=== PATIENT | female | born 1955 | race Two or more races ===

== ENCOUNTER 2016-06-03 14:14 | Emergency (ER) | payer OTHER ==
[~2016-06-03] VITALS: Ht 177.8 cm; Wt 90.7 kg
[2016-06-03] MEDS ORDERED: FLEC50TA PO (14:31)
[2016-06-03] MEDS ORDERED: METO-207 PO (14:31)
[2016-06-03] MEDS ORDERED: XARE20TA PO (14:31)
[2016-06-03] MEDS ORDERED: PANT40TA2 PO (14:31)
[2016-06-03 15:07] LABS: INR 1.4
[2016-06-03 15:10] LABS: BASO # 0.1 K/mm3 (0.0-0.2); BASO % 0.7 % (0.0-1.0); EOS # 0.2 K/mm3 (0.0-0.50); LARGE UNSTAINED CELL # 0.2 K/mm3 (0.0-0.4); LARGE UNSTAINED CELL % 2.3 % (0.0-4.0); LYMPH # 2.7 K/mm3 (1.5-4.5); LYMPH % 29.4 % (24.0-44.0); MEAN CORPUSCULAR HEMOGLOBIN 30.9 pg (27.0-33.0); MEAN CORPUSCULAR HGB CONC 33.7 g/dl (32.0-36.5); MEAN CORPUSCULAR VOLUME 91.6 fl (80.0-96.0); MONO # 0.4 K/mm3 (0.0-0.8); MONO % 3.9 % (0.0-5.0); NEUTROPHILS # 5.6 K/mm3 (1.8-7.7); NEUTROPHILS % 61.7 % (36.0-66.0); PLATELET COUNT, AUTOMATED 239 k/mm3 (150-450); RED CELL DISTRIBUTION WIDTH 12.8 % (11.5-14.5); WHITE BLOOD COUNT 9.1 K/mm3 (4.0-10.0)
[2016-06-03 15:26] LABS: ANION GAP 9 MEQ/L (8-16); BLOOD UREA NITROGEN 16 MG/DL (7-18); CALCIUM LEVEL 8.3 MG/DL (8.8-10.2); CARBON DIOXIDE LEVEL 24 MEQ/L (21-32); CHLORIDE LEVEL 111 MEQ/L (98-107); CREATININE FOR GFR 0.94 MG/DL (0.55-1.02); FREE T4 1.07 NG/DL (0.76-1.46); GLOMERULAR FILTRATION RATE > 60.0 (>45); GLUCOSE, FASTING 101 MG/DL (80-110); MAGNESIUM LEVEL 2.2 MG/DL (1.8-2.4); PHOSPHORUS LEVEL 2.6 MG/DL (2.5-4.9); POTASSIUM SERUM 3.9 MEQ/L (3.5-5.1); SODIUM LEVEL 144 MEQ/L (136-145)
[2016-06-03 16:02] VITALS: BP 132/71
--- NOTE | 2016-06-04 07:43 | REP ---
PORTABLE CHEST: AP portable view of the chest is performed and compared to a prior study of 03/02/2016. There is mild cardiomegaly. There is no acute infiltrate. There is mild bibasilar fibrotic change. The mediastinal silhouette is unchanged. IMPRESSION: Mild cardiomegaly and chronic findings without evidence of acute infiltrate. Signed by Jason Blanchard MD 06/04/2016 04:09 P
--- NOTE | 2016-06-04 20:27 | ECGEPIP ---
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 RBBB PROBABLE INFERIOR MYOCARDIAL INFARCTION, OF INDETERMINATE AGE WITH POSTERIOR EXTENSION NO PRIORS Electronically Signed On 06-04-2016 20:26:48 EST by Masoud Vail
--- NOTE | 2016-06-04 20:28 | ECGEPIP ---
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 RBBB MODERATE VOLTAGE CRITERIA FOR LVH, CONSIDER NORMAL VARIANT Electronically Signed On 06-04-2016 20:27:41 EST by Masoud Vail
== END 2016-06-03 16:08 | disposition home or self-care (01) ==
LOC: M ED 15:26
DX: I48.91 Unspecified atrial fibrillation (principal); R93.1 Abnormal findings on diagnostic imaging of heart and coronary circulation; Z90.49 Acquired absence of other specified parts of digestive tract; Z79.02 Long term (current) use of antithrombotics/antiplatelets; Z79.899 Other long term (current) drug therapy; Z88.2 Allergy status to sulfonamides

== ENCOUNTER → 2016-07-17 | Outpatient (CLI) | payer OTHER ==
[~2016-07-17] MED LIST: FLEC50TA PO; METO-207 PO; OMEP40CA2 PO; PANT40TA2 PO; XARE20TA PO
--- NOTE | 2016-07-17 12:27 | REP ---
Gastric emptying nuclear scintigraphy: History: Vomiting, gastroparesis. Technique: 1.06 mCi of technetium-99m sulfur colloid was ingested in two scrambled eggs and 6 ounces of water and sequential anterior and posterior images are acquired for an 89-minute imaging observation period. Regions of interest are drawn around the stomach to plot gastric emptying. Scintigraphic findings: Expected T1/2 is 90 minutes. 25 % emptying is observed in this patient during the 89-minute imaging observation period, for a calculated T1/2 in this patient of 185 minutes. Impression: Delayed gastric emptying. Signed by Royer Walker MD 07/17/2016 12:19 P
== END ==
LOC: M RAD 08:45
PROVIDERS: ATTEND Internal Medicine Gastroenterology
DX: K30 Functional dyspepsia (principal); R11.10 Vomiting, unspecified; K31.84 Gastroparesis

== ENCOUNTER → 2016-07-31 | Outpatient (CLI) | payer OTHER ==
[~2016-07-31] VITALS: Ht 180.3 cm; Wt 90.7 kg
[~2016-07-31] MED LIST changes: +LIDOCAINE 2% INJ 100 MG/5 ML SDV (FOR ANES.) As Ordered ONE; +NS 1,000 ML IV SCH; +PROPOFOL 200 MG/20 ML VIAL As Ordered ONE
--- NOTE | 2016-07-31 09:56 | ROOR ---
Patient Name: Brenda Dior Procedure Date: 07/31/2016 9:27 AM Date of : 1955 Age: 61 Room: [facility] Gender: Female Note Status: Finalized Procedure: Upper GI endoscopy Indications: Heartburn, Gastroparesis Providers: Dami WHITMORE MD Referring MD: [facility] CARIDAD ALCarol [facility], Admin. Requesting Provider: Medicines: Monitored Anesthesia Care Complications: No immediate complications. Procedure: Pre-Anesthesia Assessment: - The heart rate, respiratory rate, oxygen saturations, blood pressure, adequacy of pulmonary ventilation, and response to care were monitored throughout the procedure. The Endoscope was introduced through the mouth, and advanced to the second part of duodenum. The upper GI endoscopy was accomplished without difficulty. The patient tolerated the procedure well. Findings: A medium-sized hiatal hernia was present. The esophagus was normal. The stomach was normal. The examined duodenum was normal. Impression: - Medium-sized hiatal hernia. - Normal esophagus. - Normal stomach. - Normal examined duodenum. (- There is no evidence of gastric outlet or duodenal obstruction.) - No specimens collected. Recommendation: - Use Prilosec (omeprazole) 40 mg PO BID. - Gastroparesis diet: - Eat smaller, more frequent meals throughout the day. - Low fat diet. - Liquid/soft foods are tolerated better than solid foods. - Low fiber/well cooked vegetables are tolerated better than high fiber/fibrous foods/raw vegetables. - Avoid medications that inhibit gastric/intestinal motility such as narcotic medications. Dami Whitmore MD Dami WHITMORE MD 07/31/2016 9:56:19 AM This report has been signed electronically. Number of Addenda: 0 Note Initiated On: 07/31/2016 9:27 AM Estimated Blood Loss: Estimated blood loss: none.
--- NOTE | 2016-07-31 10:00 | ROOR ---
Patient Name: Brenda Dior Procedure Date: 07/31/2016 9:28 AM Date of : 1955 Age: 61 Room: [facility] Gender: Female Note Status: Finalized Procedure: Colonoscopy Indications: Screening for colorectal malignant neoplasm Providers: Dami WHITMORE MD Referring MD: [facility], Admin. Requesting Provider: Medicines: Monitored Anesthesia Care Complications: No immediate complications. Procedure: Pre-Anesthesia Assessment: - The heart rate, respiratory rate, oxygen saturations, blood pressure, adequacy of pulmonary ventilation, and response to care were monitored throughout the procedure. The Colonoscope was introduced through the anus and advanced to the cecum, identified by appendiceal orifice and ileocecal valve. The colonoscopy was performed without difficulty. The patient tolerated the procedure well. The quality of the bowel preparation was fair. Findings: The perianal and digital rectal examinations were normal. Two sessile polyps were found in the ascending colon. The polyps were diminutive in size. These polyps were removed with a cold snare. Resection and retrieval were complete. There was evidence of a prior functional end-to-end colo-colonic anastomosis in the recto-sigmoid colon. This was patent and was characterized by healthy appearing mucosa. The anastomosis was traversed. The exam was otherwise without abnormality on direct and retroflexion views. Impression: - Preparation of the colon was fair. - Two diminutive polyps in the ascending colon, removed with a cold snare. Resected and retrieved. - Patent functional end-to-end colo-colonic anastomosis, characterized by healthy appearing mucosa. - Small internal hemorrhoids. - The examination was otherwise normal on direct and retroflexion views. Recommendation: - Use fiber, for example Citrucel, Fibercon, Konsyl or Metamucil. - Repeat colonoscopy in 3 years for surveillance. - (prep was fair. Would repeat colonoscopy in 3 years) Dami Whitmore MD Dami WHITMORE MD 07/31/2016 10:00:28 AM This report has been signed electronically. Number of Addenda: 0 Note Initiated On: 07/31/2016 9:28 AM Estimated Blood Loss: Estimated blood loss: none.
[2016-07-31 10:34] VITALS: BP 137/72
== END | disposition home or self-care (01) ==
LOC: M OPP 08:29
PROVIDERS: ATTEND Internal Medicine Gastroenterology
DX: Z12.11 Encounter for screening for malignant neoplasm of colon (principal); D12.2 Benign neoplasm of ascending colon; K64.8 Other hemorrhoids; Z98.0 Intestinal bypass and anastomosis status; K31.84 Gastroparesis; R12 Heartburn; K44.9 Diaphragmatic hernia without obstruction or gangrene; I48.91 Unspecified atrial fibrillation; Z85.828 Personal history of other malignant neoplasm of skin; Z87.19 Personal history of other diseases of the digestive system; Z88.2 Allergy status to sulfonamides; Z79.01 Long term (current) use of anticoagulants; Z79.899 Other long term (current) drug therapy; Z87.891 Personal history of nicotine dependence; Z80.0 Family history of malignant neoplasm of digestive organs; Z83.71 Family history of colonic polyps

== ENCOUNTER → 2016-08-31 | Outpatient (REF) | payer OTHER ==
[~2016-08-31] MED LIST changes: -LIDOCAINE 2% INJ 100 MG/5 ML SDV (FOR ANES.) As Ordered ONE; -NS 1,000 ML IV SCH; -PROPOFOL 200 MG/20 ML VIAL As Ordered ONE
== END ==
LOC: M SFHCADAM 09:36
PROVIDERS: ATTEND Family Medicine
DX: E66.09 Other obesity due to excess calories (principal)

== ENCOUNTER → 2016-09-28 | Outpatient (REF) | payer OTHER ==
[~2016-09-28] MED LIST changes: +FURO20TA2 PO; -METO-207 PO; +METO1TAB7 PO
[2016-09-28 14:06] LABS: ANION GAP 7 MEQ/L (8-16); BLOOD UREA NITROGEN 14 MG/DL (7-18); CALCIUM LEVEL 9.1 MG/DL (8.8-10.2); CARBON DIOXIDE LEVEL 26 MEQ/L (21-32); CHLORIDE LEVEL 110 MEQ/L (98-107); CREATININE FOR GFR 0.84 MG/DL (0.55-1.02); GLOMERULAR FILTRATION RATE > 60.0 (>45); GLUCOSE, FASTING 85 MG/DL (80-110); POTASSIUM SERUM 4.5 MEQ/L (3.5-5.1); SODIUM LEVEL 143 MEQ/L (136-145)
== END ==
LOC: M SFHCADAM 10:40
PROVIDERS: ATTEND Family Medicine
DX: R51 Headache (principal)

== ENCOUNTER → 2016-10-31 | Outpatient (CLI) | payer OTHER ==
[~2016-10-31] MED LIST changes: +ISOVUE-370 76% 100ML VIAL (Q9967) As Ordered ONE
--- NOTE | 2016-10-31 14:16 | REP ---
CT HEAD WITHOUT AND WITH CONTRAST: HISTORY: Headache. CONTRAST: Isovue 370, 75 mL. There is no intraparenchymal hemorrhage, mass or midline shift. There is no abnormal enhancement. The ventricular system is normal in appearance. A cavum septi pellucidi is present. There is no extracerebral collection. The visualized sinuses are clear. IMPRESSION: There is no intracranial lesion. Signed by Armand Gutierrez MD 10/31/2016 02:24 P
== END ==
LOC: M RAD 13:23
PROVIDERS: ATTEND Family Medicine
DX: R51 Headache (principal)

== ENCOUNTER → 2016-11-01 | Outpatient (REF) | payer OTHER ==
[~2016-11-01] MED LIST changes: -ISOVUE-370 76% 100ML VIAL (Q9967) As Ordered ONE
[2016-11-01 13:11] LABS: ALBUMIN/GLOBULIN RATIO 1.29 (1.00-1.93); ALKALINE PHOSPHATASE 65 U/L (45-117); ALT/SGPT 26 U/L (12-78); ANION GAP 10 MEQ/L (8-16); AST/SGOT 21 U/L (15-37); BILIRUBIN,TOTAL 0.4 MG/DL (0.2-1.0); BLOOD UREA NITROGEN 11 MG/DL (7-18); CARBON DIOXIDE LEVEL 25 MEQ/L (21-32); CHLORIDE LEVEL 107 MEQ/L (98-107); CREATININE FOR GFR 0.76 MG/DL (0.55-1.02); GLOMERULAR FILTRATION RATE > 60.0 (>45); GLUCOSE, FASTING 80 MG/DL (80-110); POTASSIUM SERUM 3.9 MEQ/L (3.5-5.1); SODIUM LEVEL 142 MEQ/L (136-145); TOTAL PROTEIN 7.1 GM/DL (6.4-8.2)
== END ==
LOC: M SFHCADAM 11:29
PROVIDERS: ATTEND Family Medicine
DX: R60.9 Edema, unspecified (principal)

== ENCOUNTER 2016-11-07 15:08 | Emergency (ER) | payer OTHER ==
[~2016-11-07] VITALS: Ht 177.8 cm; Wt 106.4 kg
[~2016-11-07 15:08] MED LIST changes: -FURO20TA2 PO
[2016-11-07 17:30] VITALS: BP 141/79
--- NOTE | 2016-11-07 17:59 | REP ---
LEFT FOOT SERIES: Four views of the left foot performed. There is a nondisplaced fracture of the first proximal phalanx which appears to extend into the interphalangeal joint. No other acute fracture or dislocation is seen. IMPRESSION: Nondisplaced fracture first proximal phalanx. Signed by Jason Blanchard MD 11/08/2016 01:29 P
[2017-01-27] MEDS ORDERED: FURO20TA2 PO (19:00)
== END 2016-11-07 17:38 | disposition home or self-care (01) ==
LOC: M ED 15:08
DX: S92.412A Displaced fracture of proximal phalanx of left great toe, initial encounter for closed fracture (principal); I48.91 Unspecified atrial fibrillation; W22.8XXA Striking against or struck by other objects, initial encounter; Y92.013 Bedroom of single-family (private) house as the place of occurrence of the external cause; Y99.9 Unspecified external cause status; Y93.9 Activity, unspecified; Z88.2 Allergy status to sulfonamides; Z79.899 Other long term (current) drug therapy

== ENCOUNTER 2017-02-27 09:09 | Emergency (ER) | payer OTHER ==
[~2017-02-27] VITALS: Ht 177.8 cm; Wt 104.5 kg
[~2017-02-27 09:09] MED LIST changes: +FURO20TA2 PO
[2017-02-27] MEDS ORDERED: LIDOCAINE 2% MDV 20 ML VIAL SC ONE (09:45)
[2017-02-27] MEDS ORDERED: ADACEL/BOOSTRIX VACCINE (DIPHTH/PERTUSS/ACELL/TETANUS)0.5ML SYR (90715) IM ONE (09:45)
[2017-02-27 10:23] VITALS: BP 140/94
== END 2017-02-27 10:25 | disposition home or self-care (01) ==
LOC: M ED 09:09
DX: S61.211A Laceration without foreign body of left index finger without damage to nail, initial encounter (principal); W26.0XXA Contact with knife, initial encounter; Y92.89 Other specified places as the place of occurrence of the external cause; Y93.89 Activity, other specified; Y99.8 Other external cause status; Z79.899 Other long term (current) drug therapy; Z79.01 Long term (current) use of anticoagulants; Z88.1 Allergy status to other antibiotic agents; Z88.2 Allergy status to sulfonamides; Z87.891 Personal history of nicotine dependence

== ENCOUNTER → 2017-08-12 | Outpatient (REF) | payer OTHER | LOC: M SFHCADAM 12:34 | DX: R35.0 Frequency of micturition (principal) ==

== ENCOUNTER 2017-11-11 12:17 | Day surgery (SDC) | payer OTHER ==
[~2017-11-11 12:17] MED LIST changes: -FLEC50TA PO; -FURO20TA2 PO; +LIDOCAINE 1% MDV 20ML VIAL SQ; -METO1TAB7 PO; +MIDAZOLAM INJ 2 MG/2 ML VIAL (J2250) As Ordered; -OMEP40CA2 PO; -PANT40TA2 PO; -XARE20TA PO; +fentaNYL 100 MCG/2 ML INJECTION (J3010) As Ordered
[2017-11-11] MEDS ORDERED: PROPOFOL 200 MG/20 ML VIAL As Ordered (12:27)
[2017-11-11] MEDS: LIDOCAINE 3.5 % 1ML OPHTH TOPICAL GEL OU (13:30)
[2017-11-11] MEDS: POVIDONE-IODINE 5% OPHTH PREP SOL 30ML As Ordered (16:27)
[2017-11-11] MEDS: ERYTHROMYCIN OPHTH OINT As Ordered (16:30)
[2017-11-11] MEDS: LIDOCAINE 2% W/EPIN INJ 20ML **PRES FREE As Ordered (16:31)
== END 2017-11-11 17:20 | disposition home or self-care (01) ==
LOC: M SDC 12:17
DX: D23.12 Other benign neoplasm of skin of left eyelid, including canthus (principal); I48.91 Unspecified atrial fibrillation; I10 Essential (primary) hypertension; K21.9 Gastro-esophageal reflux disease without esophagitis; R11.11 Vomiting without nausea; R06.83 Snoring; G47.30 Sleep apnea, unspecified; F41.9 Anxiety disorder, unspecified; E87.6 Hypokalemia; Z88.2 Allergy status to sulfonamides; Z79.899 Other long term (current) drug therapy; Z79.01 Long term (current) use of anticoagulants; Z85.828 Personal history of other malignant neoplasm of skin; Z90.710 Acquired absence of both cervix and uterus; Z85.42 Personal history of malignant neoplasm of other parts of uterus
CPT/HCPCS: 67715

== ENCOUNTER 2017-12-25 16:17 | Emergency (ER) | payer OTHER ==
[2017-12-25 18:25] LABS: ANION GAP 7 MEQ/L (8-16); BLOOD UREA NITROGEN 10 MG/DL (7-18); CALCIUM LEVEL 9.1 MG/DL (8.8-10.2); CARBON DIOXIDE LEVEL 29 MEQ/L (21-32); CHLORIDE LEVEL 107 MEQ/L (98-107); CREATININE FOR GFR 0.78 MG/DL (0.55-1.30); GLOMERULAR FILTRATION RATE > 60.0 (>45); GLUCOSE, FASTING 84 MG/DL (70-100); MAGNESIUM LEVEL 2.1 MG/DL (1.8-2.4); POTASSIUM SERUM 4.4 MEQ/L (3.5-5.1); SODIUM LEVEL 143 MEQ/L (136-145)
== END 2017-12-25 19:00 | disposition home or self-care (01) ==
LOC: M ED 16:17
DX: R00.2 Palpitations (principal); I49.3 Ventricular premature depolarization; I45.10 Unspecified right bundle-branch block; I48.91 Unspecified atrial fibrillation; I10 Essential (primary) hypertension; K21.9 Gastro-esophageal reflux disease without esophagitis; Z88.2 Allergy status to sulfonamides; Z79.899 Other long term (current) drug therapy; Z79.01 Long term (current) use of anticoagulants
CPT/HCPCS: 93005

== ENCOUNTER 2017-12-31 07:56 | Emergency (ER) | payer OTHER ==
[2017-12-31] MEDS: KETOROLAC 30 MG/ML VIAL (J1885) IV (08:38)
[2017-12-31 08:46] LABS: BASO # 0.1 10^3/uL (0.0-0.2); BASO % 0.8 % (0.0-1.0); EOS # 0.2 10^3/uL (0.0-0.50); EOS % 2.7 % (0.0-3.0); HEMATOCRIT 38.8 % (36.0-47.0); IMMATURE GRANULOCYTE % 0.2 % (0-3.0); LYMPH # 2.4 10^3/uL (1.5-4.5); LYMPH % 27.7 % (24.0-44.0); MEAN CORPUSCULAR HGB CONC 33.5 g/dl (32.0-36.5); MEAN CORPUSCULAR VOLUME 92.6 fl (80.0-96.0); MONO # 0.7 10^3/uL (0.0-0.8); NEUTROPHILS # 5.3 10^3/uL (1.8-7.7); NEUTROPHILS % 60.6 % (36.0-66.0); PLATELET COUNT, AUTOMATED 253 10^3/uL (150-450); RED BLOOD COUNT 4.19 10^6/uL (4.00-5.40); RED CELL DISTRIBUTION WIDTH 13.2 % (11.5-14.5); WHITE BLOOD COUNT 8.7 10^3/uL (4.0-10.0)
[2017-12-31 09:09] LABS: LACTIC ACID SEPSIS PROTOCOL 1.2 MMOL/L (0.4-2.0)
[2017-12-31 09:12] LABS: ALBUMIN 3.7 GM/DL (3.2-5.2); ALKALINE PHOSPHATASE 82 U/L (45-117); ALT/SGPT 18 U/L (12-78); ANION GAP 7 MEQ/L (8-16); AST/SGOT 15 U/L (7-37); BILIRUBIN,DIRECT 0.1 MG/DL (0.0-0.2); BILIRUBIN,TOTAL 0.4 MG/DL (0.2-1.0); BLOOD UREA NITROGEN 10 MG/DL (7-18); CALCIUM LEVEL 8.9 MG/DL (8.8-10.2); CARBON DIOXIDE LEVEL 28 MEQ/L (21-32); CHLORIDE LEVEL 106 MEQ/L (98-107); CREATININE FOR GFR 0.78 MG/DL (0.55-1.30); GLOMERULAR FILTRATION RATE > 60.0 (>45); GLUCOSE, FASTING 88 MG/DL (70-100); LIPASE 115 U/L (73-393); POTASSIUM SERUM 4.4 MEQ/L (3.5-5.1); SODIUM LEVEL 141 MEQ/L (136-145); TOTAL PROTEIN 7.4 GM/DL (6.4-8.2)
[2017-12-31] MEDS: GASTROGRAFIN SOLUTION 30ML PO ×2 (09:31→09:58)
[2017-12-31] MEDS ORDERED: ISOVUE-370 76% 100ML VIAL (Q9967) As Ordered (11:06)
[2017-12-31] MEDS: metroNIDAZOLE (FLAGYL) 500 MG TAB PO (12:13)
[2017-12-31] MEDS: CIPROFLOXACIN 500 MG TAB PO (12:13)
== END 2017-12-31 12:52 | disposition home or self-care (01) ==
LOC: M ED 07:56
DX: K57.32 Diverticulitis of large intestine without perforation or abscess without bleeding (principal); I48.91 Unspecified atrial fibrillation; F33.9 Major depressive disorder, recurrent, unspecified; G47.33 Obstructive sleep apnea (adult) (pediatric); K21.9 Gastro-esophageal reflux disease without esophagitis; Z98.890 Other specified postprocedural states; Z88.2 Allergy status to sulfonamides; Z88.1 Allergy status to other antibiotic agents; Z79.899 Other long term (current) drug therapy; Z90.49 Acquired absence of other specified parts of digestive tract; Z87.19 Personal history of other diseases of the digestive system
CPT/HCPCS: Q9963

== ENCOUNTER 2018-08-03 22:31 | Emergency (ER) | payer MEDICARE, MEDICAID ==
[~2018-08-03] VITALS: Ht 177.8 cm; Wt 113.6 kg
[~2018-08-03 22:31] MED LIST changes: +CIPR-249 PO; +FLAG500T PO; +FLEC50HA PO; +FURO20TA2 PO; +HYDR-3715 PO; -LIDOCAINE 1% MDV 20ML VIAL SQ; +METO1TAB7 PO; -MIDAZOLAM INJ 2 MG/2 ML VIAL (J2250) As Ordered; +OMEP40CA2 PO; +PANT40TA3 PO; +XARE20TA PO; -fentaNYL 100 MCG/2 ML INJECTION (J3010) As Ordered
[2018-08-04] MEDS ORDERED: ONDANSETRON 4MG/2ML VIAL (J2405) IV ONE
[2018-08-04] MEDS ORDERED: NS 1,000 ML IV ONE
[2018-08-04] MEDS ORDERED: MORPHINE 4 MG/ML 1ML VIAL/SYRINGE (J2270) IV ONE
[2018-08-04 00:44] LABS: BASO # 0.1 10^3/uL (0.0-0.2); BASO % 0.5 % (0.0-1.0); EOS # 0.1 10^3/uL (0.0-0.50); EOS % 0.6 % (0.0-3.0); HEMATOCRIT 41.5 % (36.0-47.0); HEMOGLOBIN 13.8 g/dl (12.0-15.5); LYMPH # 1.7 10^3/uL (1.5-4.5); MEAN CORPUSCULAR HEMOGLOBIN 31.1 pg (27.0-33.0); MEAN CORPUSCULAR HGB CONC 33.3 g/dl (32.0-36.5); MEAN CORPUSCULAR VOLUME 93.5 fl (80.0-96.0); MONO # 0.4 10^3/uL (0.0-0.8); MONO % 3.2 % (0.0-5.0); NEUTROPHILS # 10.1 10^3/uL (1.8-7.7); NEUTROPHILS % 81.3 % (36.0-66.0); PLATELET COUNT, AUTOMATED 234 10^3/uL (150-450); RED BLOOD COUNT 4.44 10^6/uL (4.00-5.40); WHITE BLOOD COUNT 12.4 10^3/uL (4.0-10.0)
[2018-08-04 01:04] VITALS: BP 159/84
[2018-08-04 01:04] LABS: ALBUMIN 3.9 GM/DL (3.2-5.2); ALT/SGPT 27 U/L (12-78); BILIRUBIN,DIRECT < 0.1 MG/DL (0.0-0.2); BILIRUBIN,TOTAL 0.3 MG/DL (0.2-1.0); BLOOD UREA NITROGEN 15 MG/DL (7-18); CALCIUM LEVEL 8.8 MG/DL (8.8-10.2); CARBON DIOXIDE LEVEL 31 MEQ/L (21-32); CHLORIDE LEVEL 106 MEQ/L (98-107); CREATININE FOR GFR 1.07 MG/DL (0.55-1.30); GLOMERULAR FILTRATION RATE 54.8 (>45); GLUCOSE, FASTING 123 MG/DL (70-100); LIPASE 122 U/L (73-393); POTASSIUM SERUM 4.2 MEQ/L (3.5-5.1); SODIUM LEVEL 141 MEQ/L (136-145); TOTAL PROTEIN 8.2 GM/DL (6.4-8.2)
[2018-08-04] MEDS ORDERED: ISOVUE-370 76% 100ML VIAL (Q9967) As Ordered ONE (01:23)
--- NOTE | 2018-08-04 02:33 | REPVR ---
EXAM: CT Abdomen and Pelvis With Contrast EXAM DATE/TIME: 08/04/2018 1:35 AM CLINICAL HISTORY: 63 years old, female; Abdominal pain; Prior surgery; Surgery date: 6+ months; Surgery type: Colon resection for diverticulitis; Additional info: Llq pain TECHNIQUE: Imaging protocol: Axial computed tomography images of the abdomen and pelvis with intravenous contrast. Coronal and sagittal reformatted images were created and reviewed. Radiation optimization: All CT scans at this facility use at least one of these dose optimization techniques: automated exposure control; mA and/or kV adjustment per patient size (includes targeted exams where dose is matched to clinical indication); or iterative reconstruction. Contrast material: ISO 370; Contrast volume: 100 ml; Contrast route: IV; COMPARISON: CT ABD/PEL W/IV ORAL CONTRAS 12/31/2017 11:25 AM FINDINGS: Lungs: Minimal bibasilar fibro-atelectatic change greatest in the lower lobes. Mediastinum: Moderate hiatal hernia. ABDOMEN: Liver: Normal. No mass. Gallbladder and bile ducts: Contracted gallbladder with multiple gallstones. Pancreas: Normal. No ductal dilation. Spleen: Normal. No splenomegaly. Adrenals: Normal. No mass. Kidneys and ureters: Normal. No hydronephrosis. Stomach and bowel: Small bowel anastomosis in the right lower quadrant. Borderline to mild distention of small bowel segments with some intervening normal small bowel which may reflect areas of enteritis or adynamic segments. Colonic diverticulosis without diverticulitis. Anastomotic ring in the rectum. Appendix: There are no changes of appendicitis. A normal appendix is not seen. PELVIS: Bladder: Unremarkable as visualized. Reproductive: Status post hysterectomy. ABDOMEN and PELVIS: Intraperitoneal space: Normal. No free air. No significant fluid collection. Bones/joints: Increased lumbar lordosis. Soft tissues: Unremarkable. Vasculature: Normal. No abdominal aortic aneurysm. Lymph nodes: Normal. No enlarged lymph nodes. IMPRESSION: 1. Minimal bibasilar fibro-atelectatic change. 2. Moderate hiatal hernia. 3. Cholelithiasis. 4. Status post hysterectomy. 5. Colonic diverticulosis without diverticulitis. 6. Borderline to mild distention of small bowel segments with some intervening normal small bowel which may reflect areas of enteritis or adynamic segments. Electronically signed by: Jasper Lyons On 08/04/2018 02:33:20 AM
[2018-08-04] MEDS ORDERED: ONDA4TAB6 PO (02:44)
== END 2018-08-04 03:02 | disposition home or self-care (01) ==
LOC: M ED 22:31
DX: K52.9 Noninfective gastroenteritis and colitis, unspecified (principal); I10 Essential (primary) hypertension; I48.91 Unspecified atrial fibrillation; G47.33 Obstructive sleep apnea (adult) (pediatric); Z88.2 Allergy status to sulfonamides; Z79.01 Long term (current) use of anticoagulants
CPT/HCPCS: 74177; 80048; 80076; 81001; 83690; 85025; 96361; 96374; 96375; 99284; J2270; J2405; Q9967

== ENCOUNTER → 2018-08-06 | Outpatient (CLI) | payer MEDICARE, MEDICAID ==
[~2018-08-06] MED LIST changes: +ONDA4TAB6 PO
--- NOTE | 2018-08-06 11:27 | REPMRS ---
Patient History The patient states she has not had a clinical breast exam in over a year. Baseline Mammogram Patient is postmenopausal, has history of ovarian cancer at age 27, has history of uterine cancer at age 27, and has history of skin cancer. Family history of prostate cancer at age 50 or over in father. Benign excisional biopsy of the left breast, 1994. Took estrogen for 6 months. 3D TOMOSYNTHESIS WAS PERFORMED. Digital Woman Screen Mammo: August 06, 2018 - Exam #: [id number] Bilateral CC and MLO view(s) were taken. Technologist: Lorenza Coronado, Technologist Prior study comparison: 2003, bilateral screening mammogram, performed at [facility]. FINDINGS: There are scattered fibroglandular densities. There is no evidence of cancer on this mammogram. Assessment: BI-RADS/ACR category 2 mammogram. Benign Findings. Recommendation Routine screening mammogram of both breasts in 1 year (for women over age 40). This mammogram was interpreted with the aid of an FDA-approved computer-aided dectection system. Electronically Signed By: Jason Blanchard MD 08/06/18 [id number]
== END ==
LOC: M WHC 07:32
PROVIDERS: ATTEND Family Medicine
DX: Z12.31 Encounter for screening mammogram for malignant neoplasm of breast (principal); Z78.0 Asymptomatic menopausal state; Z85.43 Personal history of malignant neoplasm of ovary; Z85.42 Personal history of malignant neoplasm of other parts of uterus; Z85.828 Personal history of other malignant neoplasm of skin

== ENCOUNTER → 2018-09-02 | Outpatient (CLI) | payer MEDICARE, MEDICAID ==
--- NOTE | 2018-09-03 05:53 | REP ---
Clinical: Lung screening. History smoking. Comparison: None Technique: Axial low-dose noncontrast images from the thoracic inlet to the upper abdomen using lung screening technique. Findings: The lung gann are well-aerated. A 5 mm nodule in the medial right lower lobe (image 50) is suspected. No further consolidation, significant nodule or mass lesion appreciated. No pleural effusion/reaction or pneumothorax. Tracheobronchial tree is patent. Mediastinum demonstrates mild atherosclerotic changes of the coronary arteries without cardiomegaly. Impression: Lung-RADS category III. 5 mm nodule in the right lower lobe. Recommendations include 6-month follow-up CT reevaluation. Electronically Signed by Heri Reddy MD 09/03/2018 05:45 A
== END ==
LOC: M RAD 07:46
PROVIDERS: ATTEND Family Medicine
DX: Z12.2 Encounter for screening for malignant neoplasm of respiratory organs (principal); Z87.891 Personal history of nicotine dependence; R91.1 Solitary pulmonary nodule

== ENCOUNTER → 2018-10-08 | Outpatient (CLI) | payer MEDICARE, MEDICAID ==
[~2018-10-08] MED LIST changes: +E-Z-PAQUE 96% w/w SUSP 176GM BTL As Ordered ONE
--- NOTE | 2018-10-08 20:38 | REP ---
Examination Requested: SBFT Reason For Exam: Abnormal findings on imaging. Small Bowel Follow Through The procedure was performed by YANI Ballesteros, under the direct supervision of Dr. Blanchard. The images were reviewed with Dr. Blanchard. The hospice patient care secretary film shows no organomegaly or pathological masses. The intestinal gas pattern appears normal. The barium was administered and the barium column was followed through the small bowel to the level of the terminal ileum. Small bowel transit time was approximately 20 minutes. During fluoroscopy gentle palpation shows all loops are freely mobile and pliable. There are no fixed or angulated loops. The small bowel mucosal pattern is normal in course and caliber. There is no transition to suggest a partial small-bowel obstruction. Spot filming of the terminal ileum shows it to be unremarkable. There is a small diverticulum in the region of the terminal ileum. Impression: 1. Small bowel transit time of approximately 20 minutes. 2. A small diverticulum in the region of the distal small bowel/terminal ileum. 1.5 minutes of fluoroscopy time was utilized for this procedure. Some fluoroscopic images are performed with last image hold technology. These images require no additional radiation. Reviewed by YANI Rick 10/08/2018 04:03 P Electronically Signed by Jason Blanchard MD 10/08/2018 08:28 P
== END ==
LOC: M RAD 09:26
PROVIDERS: ATTEND Internal Medicine Gastroenterology
DX: K57.30 Diverticulosis of large intestine without perforation or abscess without bleeding (principal); R93.3 Abnormal findings on diagnostic imaging of other parts of digestive tract

== ENCOUNTER 2018-12-08 09:07 | Day surgery (SDC) | payer MEDICARE, MEDICAID ==
[~2018-12-08] VITALS: Ht 177.8 cm; Wt 107.5 kg
[~2018-12-08 09:07] MED LIST changes: -E-Z-PAQUE 96% w/w SUSP 176GM BTL As Ordered ONE; +NS 1,000 ML IV ONE
[2018-12-08] MEDS ORDERED: PROPOFOL 500 MG/50 ML VIAL As Ordered ONE (10:19)
[2018-12-08] MEDS ORDERED: LIDOCAINE 2% INJ 100 MG/5 ML SDV (FOR ANES.) As Ordered ONE (10:23)
--- NOTE | 2018-12-08 11:56 | ROOR ---
Patient Name: Brenda Dior Procedure Date: 12/08/2018 11:36 AM Date of : 1955 Age: 63 Room: [facility] Gender: Female Note Status: Finalized Procedure: Upper GI endoscopy Indications: Dyspepsia, Heartburn, Eructation Providers: Dami MILLER MD Referring MD: Shreya CLAUDIO DO Requestbentley Provider: Medicines: Monitored Anesthesia Care Complications: No immediate complications. Procedure: Pre-Anesthesia Assessment: - The heart rate, respiratory rate, oxygen saturations, blood pressure, adequacy of pulmonary ventilation, and response to care were monitored throughout the procedure. The Endoscope was introduced through the mouth, and advanced to the third part of duodenum. The upper GI endoscopy was accomplished without difficulty. The patient tolerated the procedure well. Findings: A large hiatal hernia was present. The entire examined stomach was otherwise normal. (large volume--r/o gastroparesis) The examined esophagus was normal. The examined duodenum was normal. Impression: - Moderate to large hiatal hernia. - Otherwise normal stomach. - Normal esophagus. - Normal examined duodenum. - No specimens collected. Recommendation: - Continue present medications. - Gastroparesis diet: - Eat smaller, more frequent meals throughout the day. - Low fat diet. - Liquid/soft foods are tolerated better than solid foods. - Low fiber/well cooked vegetables are tolerated better than high fiber/fibrous foods/raw vegetables. - Avoid medications that inhibit gastric/intestinal motility such as narcotic medications. Dami Miller MD Dami MILLER MD 12/08/2018 11:55:28 AM Electronically signed by Dami MILLER MD Number of Addenda: 0 Note Initiated On: 12/08/2018 11:36 AM Estimated Blood Loss: Estimated blood loss: none.
--- NOTE | 2018-12-08 12:11 | ROOR ---
Patient Name: Brenda Dior Procedure Date: 12/08/2018 11:37 AM Date of : 1955 Age: 63 Room: [facility] Gender: Female Note Status: Finalized Procedure: Colonoscopy Indications: Change in bowel habits Providers: Dami MILLER MD Referring MD: Shreya CLAUDIO DO Requesting Provider: Medicines: Monitored Anesthesia Care Complications: No immediate complications. Procedure: Pre-Anesthesia Assessment: - The heart rate, respiratory rate, oxygen saturations, blood pressure, adequacy of pulmonary ventilation, and response to care were monitored throughout the procedure. The Colonoscope was introduced through the anus and advanced to the terminal ileum, with identification of the appendiceal orifice and IC valve. The colonoscopy was performed without difficulty. The patient tolerated the procedure well. The quality of the bowel preparation was good. Findings: The perianal and digital rectal examinations were normal. There was evidence of a prior end-to-side colo-rectal anastomosis in the recto-sigmoid colon. This was patent and was characterized by healthy appearing mucosa. A few small-mouthed diverticula were found in the mid descending colon. The exam was otherwise without abnormality on direct and retroflexion views. Impression: - Patent end-to-side colo-rectal anastomosis, characterized by healthy appearing mucosa. - Mild diverticulosis in the mid descending colon. - The examination was otherwise normal on direct and retroflexion views. - No specimens collected. Recommendation: - Use fiber, for example Citrucel, Fibercon, Konsyl or Metamucil. - Continue present medications. Dami Miller MD Dami MILLER MD 12/08/2018 12:10:42 PM Electronically signed by Dami MILLER MD Number of Addenda: 0 Note Initiated On: 12/08/2018 11:37 AM Estimated Blood Loss: Estimated blood loss: none.
[2018-12-08 12:25] VITALS: BP 139/104
== END 2018-12-08 12:33 | disposition home or self-care (01) ==
LOC: M OPP 09:07
PROVIDERS: ATTEND Internal Medicine Gastroenterology
DX: Z98.0 Intestinal bypass and anastomosis status (principal); K57.30 Diverticulosis of large intestine without perforation or abscess without bleeding; R19.4 Change in bowel habit; I48.91 Unspecified atrial fibrillation; Z79.82 Long term (current) use of aspirin; Z79.891 Long term (current) use of opiate analgesic; Z79.899 Other long term (current) drug therapy; Z87.891 Personal history of nicotine dependence; Z83.71 Family history of colonic polyps

== ENCOUNTER 2018-12-18 22:07 | Emergency (ER) | payer OTHER, MEDICAID ==
[~2018-12-18] VITALS: Ht 180.3 cm; Wt 104.5 kg
[~2018-12-18 22:07] MED LIST changes: -NS 1,000 ML IV ONE
[2018-12-18] MEDS ORDERED: GABA-843 PO (22:56)
[2018-12-18] MEDS ORDERED: DICY10CA13 PO (22:56)
[2018-12-18] MEDS ORDERED: MORPHINE 4 MG/ML 1ML VIAL/SYRINGE (J2270) IV ONE (23:00)
[2018-12-18] MEDS ORDERED: NS 1,000 ML IV ONE (23:00)
[2018-12-18 23:14] LABS: BASO # 0.1 10^3/uL (0.0-0.2); BASO % 0.6 % (0.0-1.0); EOS # 0.2 10^3/uL (0.0-0.5); EOS % 1.2 % (0.0-3.0); HEMATOCRIT 37.6 % (36.0-47.0); HEMOGLOBIN 12.7 g/dl (12.0-15.5); LYMPH % 15.9 % (24.0-44.0); MEAN CORPUSCULAR HEMOGLOBIN 31.8 pg (27.0-33.0); MEAN CORPUSCULAR HGB CONC 33.8 g/dl (32.0-36.5); MEAN CORPUSCULAR VOLUME 94.2 fl (80.0-96.0); MONO # 0.6 10^3/uL (0.0-0.8); MONO % 4.9 % (0.0-5.0); NEUTROPHILS # 9.9 10^3/uL (1.5-8.5); NEUTROPHILS % 77.1 % (36.0-66.0); PLATELET COUNT, AUTOMATED 233 10^3/uL (150-450); RED BLOOD COUNT 3.99 10^6/uL (4.00-5.40); WHITE BLOOD COUNT 12.8 10^3/uL (4.0-10.0)
[2018-12-18 23:31] LABS: ALBUMIN 3.7 GM/DL (3.2-5.2); ALT/SGPT 20 U/L (12-78); BILIRUBIN,DIRECT 0.1 MG/DL (0.0-0.2); BILIRUBIN,TOTAL 0.3 MG/DL (0.2-1.0); BLOOD UREA NITROGEN 14 MG/DL (7-18); CALCIUM LEVEL 8.9 MG/DL (8.8-10.2); CARBON DIOXIDE LEVEL 27 MEQ/L (21-32); CHLORIDE LEVEL 105 MEQ/L (98-107); GLOMERULAR FILTRATION RATE > 60.0 (>45); GLUCOSE, FASTING 103 MG/DL (70-100); LIPASE 131 U/L (73-393); POTASSIUM SERUM 4.1 MEQ/L (3.5-5.1); SODIUM LEVEL 140 MEQ/L (136-145); TOTAL PROTEIN 7.2 GM/DL (6.4-8.2)
[2018-12-18] MEDS ORDERED: ISOVUE-370 76% 100ML VIAL (Q9967) As Ordered ONE (23:42)
--- NOTE | 2018-12-19 00:52 | REPVR ---
PROCEDURE INFORMATION: Exam: CT Abdomen and Pelvis With Contrast Exam date and time: 12/18/2018 11:37 PM Clinical history: 63 years old, female; Abdominal pain; Localized; Left; Additional info: L pain TECHNIQUE: Imaging protocol: Computed tomography of the abdomen and pelvis with intravenous contrast. Radiation optimization: All CT scans at this facility use at least one of these dose optimization techniques: automated exposure control; mA and/or kV adjustment per patient size (includes targeted exams where dose is matched to clinical indication); or iterative reconstruction. Contrast material: ISO; Contrast volume: 100 ml; Contrast route: AC; COMPARISON: CT ABD/PEL W/IV CONTRAST ONLY 08/04/2018 1:16 AM FINDINGS: Lungs: Mild bibasilar fibro-atelectatic change. Mediastinum: Mild hiatal hernia. Liver: The liver attenuation is 77 Hounsfield units and the spleen is 107 Hounsfield units. Gallbladder and bile ducts: There several gallstones in the gallbladder. Pancreas: Normal. No ductal dilation. Spleen: Normal. No splenomegaly. Adrenals: Normal. No mass. Kidneys and ureters: Normal. No hydronephrosis. Stomach and bowel: There is colonic diverticulosis without evidence of diverticulitis. Rectal anastomotic ring and small bowel anastomosis in the right pelvis with localized distention which is likely baseline physiology. Borderline distention of proximal small bowel which is discordant to the collapsed distal ileum which may reflect a low-grade obstruction although no point of transition is seen. Appendix: There are no changes of appendicitis. A normal appendix is not seen. Intraperitoneal space: Unremarkable. No free air. No significant fluid collection. Vasculature: Unremarkable. No abdominal aortic aneurysm. Lymph nodes: Unremarkable. No enlarged lymph nodes. Bladder: Unremarkable as visualized. Reproductive: Status post hysterectomy. Bones/joints: Lower lumbar facet arthropathy with increased lumbosacral lordosis. Soft tissues: Right lower quadrant fat filled spigelian hernia. Other findings: The appearance is similar to the prior study. IMPRESSION: 1. There has been little change from 08/04/2018. No acute interval process is identified. 2. Mild bibasilar fibro-atelectatic change. 3. Mild hiatal hernia. 4. Cholelithiasis. 5. Right lower quadrant fat filled spigelian hernia. 6. Colonic diverticulosis without diverticulitis. 7. Rectal anastomosis and right pelvic small bowel anastomosis which is focally distended and is likely baseline physiology and unchanged from the prior study. 8. Borderline proximal small bowel distention which may reflect a low-grade obstruction with no point of transition seen and is similar to the prior study. 9. Status post hysterectomy. Electronically signed by: Jasper Lyons On 12/19/2018 00:52:22 AM
[2018-12-19] MEDS ORDERED: ZOFR4TAB16 PO (01:47)
[2018-12-19] MEDS ORDERED: NORCO 5/325MG TABLET (BULK FOR ED) PO ONE (02:00)
[2018-12-19 02:08] VITALS: BP 149/76
--- NOTE | 2018-12-19 06:28 | ECGEPIP ---
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
--- NOTE | 2018-12-19 12:51 | ED PDOC ---
Post-Departure Follow-Up dr steele and dr johnson faxed formal report of ct abd/p for fu Mikey Piña MD Dec 19, 2018 12:51
== END 2018-12-19 02:09 | disposition home or self-care (01) ==
LOC: M ED 22:07
DX: K80.20 Calculus of gallbladder without cholecystitis without obstruction (principal); K21.9 Gastro-esophageal reflux disease without esophagitis; K43.2 Incisional hernia without obstruction or gangrene; K44.9 Diaphragmatic hernia without obstruction or gangrene; K57.30 Diverticulosis of large intestine without perforation or abscess without bleeding; I10 Essential (primary) hypertension; I45.10 Unspecified right bundle-branch block; I48.91 Unspecified atrial fibrillation; R94.31 Abnormal electrocardiogram [ECG] [EKG]; Z79.899 Other long term (current) drug therapy; Z88.2 Allergy status to sulfonamides; Z90.710 Acquired absence of both cervix and uterus
CPT/HCPCS: 74177; 80048; 80076; 81001; 83690; 85025; 93005; 96361; 96374; 99284; J2270; Q9967

== ENCOUNTER → 2019-02-05 | Outpatient (REF) | payer MEDICARE, OTHER ==
[~2019-02-05] MED LIST changes: +APAP325T4 PO; +DICY10CA13 PO; +FLUTISP; +GABA-843 PO; +NITR100C2; -OMEP40CA2 PO; +OMEP40CA97 PO; +ZOFR4TAB16 PO
[2019-02-05 12:54] LABS: BASO # 0.1 10^3/uL (0.0-0.2); BASO % 0.9 % (0.0-1.0); EOS # 0.2 10^3/uL (0.0-0.5); EOS % 2.4 % (0.0-3.0); HEMATOCRIT 39.9 % (36.0-47.0); HEMOGLOBIN 13.1 g/dl (12.0-15.5); LYMPH # 2.8 10^3/uL (1.5-5.0); LYMPH % 32.8 % (24.0-44.0); MEAN CORPUSCULAR HEMOGLOBIN 31.2 pg (27.0-33.0); MEAN CORPUSCULAR HGB CONC 32.8 g/dl (32.0-36.5); MONO # 0.6 10^3/uL (0.0-0.8); MONO % 6.7 % (0.0-5.0); NEUTROPHILS # 4.9 10^3/uL (1.5-8.5); PLATELET COUNT, AUTOMATED 281 10^3/uL (150-450); WHITE BLOOD COUNT 8.6 10^3/uL (4.0-10.0)
[2019-02-05 13:09] LABS: ALBUMIN 3.9 GM/DL (3.2-5.2); ALT/SGPT 24 U/L (12-78); BILIRUBIN,TOTAL 0.4 MG/DL (0.2-1.0); BLOOD UREA NITROGEN 9 MG/DL (7-18); CALCIUM LEVEL 9.4 MG/DL (8.8-10.2); CARBON DIOXIDE LEVEL 28 MEQ/L (21-32); CHLORIDE LEVEL 108 MEQ/L (98-107); CHOLESTEROL LEVEL 193 MG/DL (<200); CREATININE FOR GFR 0.88 MG/DL (0.55-1.30); GLOMERULAR FILTRATION RATE > 60.0 (>45); GLUCOSE, FASTING 77 MG/DL (70-100); HDL CHOLESTEROL 48 MG/DL (>40); LDL CHOLESTEROL 105 MG/DL (<100); NON-HDL-C 145 MG/DL; POTASSIUM SERUM 4.4 MEQ/L (3.5-5.1); SODIUM LEVEL 140 MEQ/L (136-145); TOTAL PROTEIN 7.8 GM/DL (6.4-8.2); TRIGLYCERIDES LEVEL 199 MG/DL (<150)
== END ==
LOC: M SFHCADAM 09:14
PROVIDERS: ATTEND Family Medicine
DX: G44.52 New daily persistent headache (NDPH) (principal); Z79.899 Other long term (current) drug therapy; Z23 Encounter for immunization
CPT/HCPCS: 80053; 80061; 84443; 85025; 90670; 90682; G0008; G0009; G0463

== ENCOUNTER → 2019-02-11 | Outpatient (CLI) | payer MEDICARE, MEDICAID ==
[~2019-02-11] MED LIST changes: -FLUTISP; +ISOVUE-370 76% 100ML VIAL (Q9967) As Ordered ONE; -NITR100C2
--- NOTE | 2019-02-11 14:17 | REP ---
CT brain: 02/11/2019. Indication: Headache. Comparison: 10/31/2016. Technique: Axial CT images of the brain were obtained from skull base to vertex with and without iodinated contrast. 75 ml of Isovue 370 were administered. Findings: There is no evidence of acute intracranial hemorrhage, acute cortical infarction, mass effect, hydrocephalus or significant fluid within the visualized paranasal sinuses/mastoid air cells. There are no areas of pathologic contrast enhancement. Impression: No acute intracranial process or pathologic contrast enhancement. Electronically Signed by Dario Cao DO 02/11/2019 02:08 P
== END ==
LOC: M RAD 13:07
PROVIDERS: ATTEND Family Medicine
DX: G44.52 New daily persistent headache (NDPH) (principal)
CPT/HCPCS: 70470; Q9967

== ENCOUNTER → 2019-02-18 | Outpatient (REF) | payer MEDICARE, MEDICAID ==
[~2019-02-18] MED LIST changes: +FLUTISP; -ISOVUE-370 76% 100ML VIAL (Q9967) As Ordered ONE; +NITR100C2
[2019-02-18 18:43] LABS: APPEARANCE, URINE CLEAR (CLEAR); BACTERIA, URINE AUTO NEGATIVE (NEGATIVE); BILIRUBIN, URINE AUTO NEGATIVE (NEGATIVE); BLOOD, URINE BLOOD NEGATIVE (NEGATIVE); COLOR, URINE YELLOW (YELLOW); GLUCOSE, URINE (UA) AUTO NEGATIVE (NEGATIVE); KETONE, URINE AUTO NEGATIVE (NEGATIVE); LEUKOCYTE ESTERASE, URINE AUTO TRACE (NEGATIVE); MUCUS, URINE SMALL (NEGATIVE); NITRITE, URINE AUTO NEGATIVE (NEGATIVE); PROTEIN, URINE AUTO NEGATIVE (NEGATIVE); RBC, URINE AUTO 1 /HPF (0-3); SQUAMOUS EPITHELIAL CELL UR AU 3 /HPF (0-6); WBC, URINE AUTO 2 /HPF (0-3)
== END ==
LOC: M SFHCADAM 16:20
PROVIDERS: ATTEND Family Medicine
DX: R30.0 Dysuria (principal)
CPT/HCPCS: 81001; 81002; 87086; G0463

== ENCOUNTER 2019-02-20 07:34 | Day surgery (SDC) | payer MEDICARE, MEDICAID ==
[~2019-02-20] VITALS: Ht 177.8 cm; Wt 109.8 kg
[~2019-02-20 07:34] MED LIST changes: -FLUTISP; -NITR100C2
[2019-02-20] MEDS ORDERED: FLUTISP (08:34)
[2019-02-20] MEDS ORDERED: NITR100C2 (08:34)
[2019-02-20] MEDS ORDERED: LR 1,000 ML IV ONE (09:00)
[2019-02-20] MEDS ORDERED: BUPIVACAINE HCL 0.25% 30 ML VIAL As Ordered ONE (11:33)
[2019-02-20] MEDS ORDERED: ROCURONIUM BROMIDE 50 MG/5 ML VIAL As Ordered ONE ×2 (12:17→13:13)
[2019-02-20] MEDS ORDERED: PROPOFOL 200 MG/20 ML VIAL As Ordered ONE (12:17)
[2019-02-20] MEDS ORDERED: LIDOCAINE 2% INJ 100 MG/5 ML SDV (FOR ANES.) As Ordered ONE (12:17)
[2019-02-20] MEDS ORDERED: fentaNYL 100 MCG/2 ML INJECTION (J3010) As Ordered ONE (12:17)
[2019-02-20] MEDS ORDERED: SUGAMMADEX SODIUM 500 MG/5 ML VIAL (BRIDION) As Ordered ONE (12:17)
[2019-02-20] MEDS ORDERED: MIDAZOLAM INJ 2 MG/2 ML VIAL (J2250) As Ordered ONE (12:17)
[2019-02-20] MEDS ORDERED: dexameTHASONE 4 MG/ML 1ML VIAL (J1100) As Ordered ONE (12:17)
[2019-02-20] MEDS ORDERED: ePHEDrine SULFATE 25 MG/5 ML(5MG/ML) SYRINGE As Ordered ONE (12:20)
[2019-02-20] MEDS ORDERED: ACETAMINOPHEN 1000MG 100ML IV BTL (OFIRMEV) (J0131 PER 10MG) As Ordered ONE (12:40)
[2019-02-20] MEDS ORDERED: KETOROLAC 60 MG/2 ML VIAL (J1885) As Ordered ONE (13:16)
[2019-02-20] MEDS ORDERED: ONDANSETRON 4MG/2ML VIAL (J2405) As Ordered ONE ×2 (13:16→14:11)
[2019-02-20] MEDS ORDERED: HYDROmorphone HCL 2 MG/ML 1ML VIAL (J1170) As Ordered ONE (13:29)
[2019-02-20] MEDS ORDERED: ONDANSETRON 4MG/2ML VIAL (J2405) IV PRN (14:15)
[2019-02-20] MEDS ORDERED: fentaNYL 100 MCG/2 ML INJECTION (J3010) IV PRN (14:15)
[2019-02-20] MEDS ORDERED: oxyCODONE 5MG TAB PO PRN (14:15)
[2019-02-20] MEDS ORDERED: LR 1,000 ML IV SCH (14:15)
[2019-02-20] MEDS ORDERED: NORCO, ANEXSIA 5/325MG TABLET (HYDROcodone/ACETAMINOPHEN) PO PRN (15:15)
[2019-02-20] MEDS ORDERED: ACETAMINOPHEN TAB 650MG DOSE (2X325MG) PO PRN (15:15)
[2019-02-20 15:20] VITALS: BP 130/70
--- NOTE | 2019-02-23 22:17 | RO ---
DATE OF PROCEDURE: 02/20/2019 PREOPERATIVE DIAGNOSIS: Symptomatic gallstones. POSTOPERATIVE DIAGNOSIS: Symptomatic gallstones. PROCEDURE PERFORMED: Laparoscopic cholecystectomy. SURGEON: Dr. 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 INDICATIONS FOR PROCEDURE: Patient is a 63-year-old woman with a history of upper abdominal pain consistent with biliary colic. She had been seen in the emergency department with both visits and CT scan revealed cholelithiasis. She is now for a laparoscopic cholecystectomy. DESCRIPTION OF PROCEDURE: The patient was brought to the operating room and placed on the table in a supine position. She was placed under general endotracheal anesthesia. The patient's abdomen was prepped and draped in a sterile fashion. The patient was noted to have a midline incision beginning about the level of the umbilicus and extending inferiorly. She also was noted to have an incarcerated hernia bulge in the right lateral abdomen just at slightly below the level of the umbilicus. This was of the site of a previous diverting ileostomy necessitated by colon surgery. 0.25% Marcaine was infiltrated at the trocar sites as needed. Initial entry was in the right upper quadrant. A small incision was made and the Veress needle was inserted. After a positive hanging drop test, the abdomen was insufflated with carbon dioxide gas. A 5 mm port was placed over the 5 mm 30-degree scope, and this was advanced through the abdominal wall without difficulty. Initial examination showed normal appearing liver. The gallbladder was initially obscured by omentum and small bowel. There were no significant adhesions in the upper abdomen from the level of the umbilicus superiorly. The patient's right-sided hernia was noted containing some omentum, and this was left undisturbed. There were some additional adhesions along her lower midline scar. The patient was tilted slightly to a reverse Trendelenburg position. A supraumbilical midline incision was made and deepened to the fascia which was incised slightly in the midline and an 11 mm port was placed at this position and a camera was shifted to the midline. A second 5 mm port was placed in the lateral right upper quadrant and a third 5 mm port was placed in the left upper quadrant. The patient was tilted further to a reverse Trendelenburg position and rolled to the left. The omentum was pulled inferiorly and the markedly distended gallbladder was identified. I attempted to aspirate this, but fluid would not aspirate through the needle and when this was removed and inspected for possible occlusion, some very thick bile was extruded from the tip of the aspirating needle. The gallbladder was grasped and elevated. I began dissection near the gallbladder neck. The peritoneum was opened on both sides of the gallbladder neck. With dissection, gallbladder neck was freed and the cholecystic artery was identified. This was doubly clipped with hemoclips and divided. With further dissection, the cystic duct was clearly identified, and this was also doubly clipped and divided. A second branch of the artery was then identified, and this was doubly clipped and divided as well. The gallbladder was then dissected free from the gallbladder bed using cautery dissection. The plane was well preserved, though the gallbladder wall appeared somewhat thickened. The gallbladder was not perforated in the course of dissection. The gallbladder was placed in an Endopouch. The right upper quadrant was then irrigated and inspected. There was no evidence of bleeding or bile leak. The patient was returned to a flat position. The trocars were removed after the abdomen had been deflated. The gallbladder was recovered through the supraumbilical site, but it was necessary to extend the fascial incision somewhat to allow the stones to pass through the abdominal wall. Palpation revealed five or six large stones, up to perhaps 1-1/2 to 2 cm with some thickened bile as well. The gallbladder was sent for permanent pathology. The fascia at the supraumbilical site was approximated with interrupted simple sutures of #2-0 Vicryl. The skin incisions were all closed with buried #4-0 Vicryl and Steri-Strips. The patient tolerated the procedure well without apparent complication. She was awakened in the operating room, extubated and moved to the recovery room in stable condition.
== END 2019-02-20 15:31 | disposition home or self-care (01) ==
LOC: M SDC 07:34
PROVIDERS: ATTEND Surgery
DX: K80.20 Calculus of gallbladder without cholecystitis without obstruction (principal); I10 Essential (primary) hypertension; I48.91 Unspecified atrial fibrillation; K21.9 Gastro-esophageal reflux disease without esophagitis; G47.30 Sleep apnea, unspecified; Z88.2 Allergy status to sulfonamides; Z79.01 Long term (current) use of anticoagulants; Z79.899 Other long term (current) drug therapy; Z85.41 Personal history of malignant neoplasm of cervix uteri
CPT/HCPCS: 47562; 88304; J0131; J1100; J1170; J1885; J2250; J2405; J3010

== ENCOUNTER → 2019-06-09 | Outpatient (REF) | payer MEDICARE, MEDICAID ==
[~2019-06-09] MED LIST changes: +FLUTISP; +NITR100C2
[2019-06-09 13:47] LABS: BASO # 0.1 10^3/uL (0.0-0.2); EOS # 0.2 10^3/uL (0.0-0.5); HEMATOCRIT 40.5 % (36.0-47.0); HEMOGLOBIN 13.2 g/dl (12.0-15.5); LYMPH # 2.8 10^3/uL (1.5-5.0); LYMPH % 29.4 % (24.0-44.0); MEAN CORPUSCULAR HEMOGLOBIN 31.1 pg (27.0-33.0); MEAN CORPUSCULAR HGB CONC 32.6 g/dl (32.0-36.5); MEAN CORPUSCULAR VOLUME 95.3 fl (80.0-96.0); MONO # 0.6 10^3/uL (0.0-0.8); MONO % 6.3 % (0.0-5.0); NEUTROPHILS # 5.9 10^3/uL (1.5-8.5); PLATELET COUNT, AUTOMATED 283 10^3/uL (150-450); RED BLOOD COUNT 4.25 10^6/uL (4.00-5.40); WHITE BLOOD COUNT 9.6 10^3/uL (4.0-10.0)
[2019-06-09 14:24] LABS: ALBUMIN 3.8 GM/DL (3.2-5.2); ALT/SGPT 26 U/L (12-78); BILIRUBIN,TOTAL 0.2 MG/DL (0.2-1.0); BLOOD UREA NITROGEN 11 MG/DL (7-18); CALCIUM LEVEL 8.7 MG/DL (8.8-10.2); CARBON DIOXIDE LEVEL 29 MEQ/L (21-32); CHLORIDE LEVEL 106 MEQ/L (98-107); CREATININE FOR GFR 0.91 MG/DL (0.55-1.30); GLOMERULAR FILTRATION RATE > 60.0 (>45); GLUCOSE, FASTING 104 MG/DL (70-100); POTASSIUM SERUM 4.3 MEQ/L (3.5-5.1); SODIUM LEVEL 140 MEQ/L (136-145); TOTAL PROTEIN 7.6 GM/DL (6.4-8.2)
== END ==
LOC: M SFHCADAM 11:02
PROVIDERS: ATTEND Family Medicine
DX: R19.7 Diarrhea, unspecified (principal); Z90.49 Acquired absence of other specified parts of digestive tract; R91.1 Solitary pulmonary nodule

== ENCOUNTER 2019-06-18 09:50 | Emergency (ER) | payer MEDICARE, MEDICAID ==
[~2019-06-18] VITALS: Ht 177.8 cm; Wt 111.6 kg
[~2019-06-18 09:50] MED LIST changes: -ISOVUE-370 76% 100ML VIAL (Q9967) As Ordered ONE; -PROV108A INH
[2019-06-18 11:09] LABS: BASO # 0.1 10^3/uL (0.0-0.2); BASO % 0.5 % (0.0-1.0); EOS # 0.3 10^3/uL (0.0-0.5); EOS % 2.5 % (0.0-3.0); HEMOGLOBIN 13.1 g/dl (12.0-15.5); LYMPH # 1.7 10^3/uL (1.5-5.0); LYMPH % 13.2 % (24.0-44.0); MEAN CORPUSCULAR HGB CONC 32.8 g/dl (32.0-36.5); MEAN CORPUSCULAR VOLUME 94.6 fl (80.0-96.0); MONO # 0.8 10^3/uL (0.0-0.8); MONO % 6.3 % (0.0-5.0); NEUTROPHILS # 9.9 10^3/uL (1.5-8.5); NEUTROPHILS % 77.1 % (36.0-66.0); PLATELET COUNT, AUTOMATED 239 10^3/uL (150-450); RED BLOOD COUNT 4.23 10^6/uL (4.00-5.40); WHITE BLOOD COUNT 12.8 10^3/uL (4.0-10.0)
[2019-06-18 11:35] LABS: ALBUMIN 3.6 GM/DL (3.2-5.2); ALT/SGPT 21 U/L (12-78); BILIRUBIN,DIRECT 0.1 MG/DL (0.0-0.2); BILIRUBIN,TOTAL 0.4 MG/DL (0.2-1.0); BLOOD UREA NITROGEN 18 MG/DL (7-18); CALCIUM LEVEL 8.7 MG/DL (8.8-10.2); CARBON DIOXIDE LEVEL 27 MEQ/L (21-32); CHLORIDE LEVEL 107 MEQ/L (98-107); CPK CREATINE PHOSPHOKINASE 67 U/L (26-192); CREATININE FOR GFR 0.92 MG/DL (0.55-1.30); GLOMERULAR FILTRATION RATE > 60.0 (>45); GLUCOSE, FASTING 105 MG/DL (70-100); MB/CK RELATIVE INDEX 1.49 (< OR =4); POTASSIUM SERUM 3.9 MEQ/L (3.5-5.1); SODIUM LEVEL 139 MEQ/L (136-145); TOTAL PROTEIN 7.4 GM/DL (6.4-8.2); TROPONIN I < 0.02 NG/ML (< 0.10)
[2019-06-18] MEDS ORDERED: COMBIVENT RESPIMAT 100-20MCG INHALER 4GM INH ONE (11:45)
[2019-06-18] MEDS ORDERED: PROV108A INH (13:41)
[2019-06-18 13:57] VITALS: BP 125/64
--- NOTE | 2019-06-19 18:37 | ECGEPIP ---
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
== END 2019-06-18 14:01 | disposition home or self-care (01) ==
LOC: M ED 09:50
DX: B34.8 Other viral infections of unspecified site (principal); B97.10 Unspecified enterovirus as the cause of diseases classified elsewhere; R06.2 Wheezing; I45.19 Other right bundle-branch block; R91.1 Solitary pulmonary nodule; J98.11 Atelectasis; K44.9 Diaphragmatic hernia without obstruction or gangrene; K76.0 Fatty (change of) liver, not elsewhere classified; Z90.49 Acquired absence of other specified parts of digestive tract; I48.91 Unspecified atrial fibrillation; Z85.43 Personal history of malignant neoplasm of ovary; Z87.891 Personal history of nicotine dependence; Z79.02 Long term (current) use of antithrombotics/antiplatelets; Z79.899 Other long term (current) drug therapy; Z88.2 Allergy status to sulfonamides
CPT/HCPCS: 71260; 80048; 80076; 82550; 82553; 84484; 85025; 87486; 87581; 87633; 87798; 93005; 94640; 94760; 99284; Q9967

== ENCOUNTER → 2019-06-18 | Outpatient (CLI) | payer MEDICARE, MEDICAID ==
[~2019-06-18] MED LIST changes: +ISOVUE-370 76% 100ML VIAL (Q9967) As Ordered ONE; +PROV108A INH
--- NOTE | 2019-06-18 12:42 | REP ---
CT CHEST WITH IV CONTRAST: HISTORY: Pulmonary nodule. Comparison chest CT study September 02, 2018. CT CONTRAST DOSE: 75 mL of intravenous Isovue [address] FINDINGS: There has been no change in the size or appearance of the right lower lobe pulmonary nodule in the interval since the September 02, 2018 study. It measures 5.5 mm in greatest diameter today, unchanged from prior study. No new pulmonary nodule is seen. There is minimal bibasilar plate-like atelectasis. There are granulomatous calcific lymph node residuals in the right hilus and there are scattered normal-sized mediastinal lymph nodes. No definite mediastinal adenopathy. There is good opacification of the pulmonary arterial tree and there is no CT evidence to suggest pulmonary embolus. Thoracic aorta shows no evidence of aneurysm or dissection. There is a large hiatal hernia. No adrenal lesion is seen. Gallbladder surgically absent. The visualized upper abdominal structures show mild diffuse fatty infiltration of the liver but are otherwise unremarkable. No bony destructive lesion is seen. IMPRESSION: 1. Stable 5.5 mm right lower lobe pulmonary nodule. 2. Mild bibasilar plate-like atelectasis. 3. Large hiatal hernia. 4. Fatty infiltration of the liver. Post cholecystectomy. 5. Otherwise no active disease. No CT evidence of pulmonary embolus or thoracic aortic disease. Electronically Signed by Royer Walker MD 06/18/2019 01:12 P
== END ==
LOC: M RAD 08:30
PROVIDERS: ATTEND Family Medicine
DX: R91.1 Solitary pulmonary nodule (principal); J98.11 Atelectasis; K44.9 Diaphragmatic hernia without obstruction or gangrene; K76.0 Fatty (change of) liver, not elsewhere classified; Z90.49 Acquired absence of other specified parts of digestive tract

== ENCOUNTER 2019-07-26 00:53 | Emergency (ER) | payer MEDICARE, MEDICAID ==
[~2019-07-26] VITALS: Ht 177.8 cm; Wt 110.6 kg
[~2019-07-26 00:53] MED LIST changes: +PROV108A INH
[2019-07-26 01:29] LABS: BASO # 0.1 10^3/uL (0.0-0.2); BASO % 0.6 % (0.0-1.0); EOS # 0.1 10^3/uL (0.0-0.5); EOS % 0.5 % (0.0-3.0); HEMATOCRIT 39.4 % (36.0-47.0); HEMOGLOBIN 12.9 g/dl (12.0-15.5); LYMPH % 17.5 % (24.0-44.0); MEAN CORPUSCULAR HEMOGLOBIN 30.8 pg (27.0-33.0); MEAN CORPUSCULAR HGB CONC 32.7 g/dl (32.0-36.5); MONO # 0.5 10^3/uL (0.0-0.8); MONO % 4.7 % (0.0-5.0); NEUTROPHILS # 8.5 10^3/uL (1.5-8.5); NEUTROPHILS % 76.2 % (36.0-66.0); PLATELET COUNT, AUTOMATED 254 10^3/uL (150-450); RED BLOOD COUNT 4.19 10^6/uL (4.00-5.40); WHITE BLOOD COUNT 11.2 10^3/uL (4.0-10.0)
[2019-07-26] MEDS ORDERED: NS 1,000 ML IV ONE (01:45)
[2019-07-26] MEDS ORDERED: METOCLOPRAMIDE INJ 10MG/2ML VIAL (J2765 PER 1) IV ONE (01:45)
[2019-07-26 02:27] LABS: ALBUMIN 3.6 GM/DL (3.2-5.2); ALT/SGPT 24 U/L (12-78); BILIRUBIN,DIRECT < 0.1 MG/DL (0.0-0.2); BILIRUBIN,TOTAL 0.4 MG/DL (0.2-1.0); CK-MB VALUE MASS 2.3 NG/ML (<3.6); CPK CREATINE PHOSPHOKINASE 109 U/L (26-192); LIPASE 99 U/L (73-393); MB/CK RELATIVE INDEX 2.11 (< OR =4); TOTAL PROTEIN 7.1 GM/DL (6.4-8.2); TROPONIN I < 0.02 NG/ML (< 0.10)
[2019-07-26] MEDS ORDERED: KETOROLAC 30 MG/ML 1ML VIAL IV ONE (03:00)
[2019-07-26 05:00] VITALS: BP 150/72
--- NOTE | 2019-07-26 10:21 | ECGEPIP ---
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
== END 2019-07-26 05:15 | disposition home or self-care (01) ==
LOC: M ED 00:53
DX: R11.2 Nausea with vomiting, unspecified (principal); R10.9 Unspecified abdominal pain; I48.91 Unspecified atrial fibrillation; K21.9 Gastro-esophageal reflux disease without esophagitis; Z90.49 Acquired absence of other specified parts of digestive tract; Z98.890 Other specified postprocedural states; Z88.2 Allergy status to sulfonamides; Z79.899 Other long term (current) drug therapy; Z79.01 Long term (current) use of anticoagulants
CPT/HCPCS: 80047; 80076; 82550; 82553; 83690; 84484; 85025; 93005; 93041; 96374; 96375; 99285; J1885; J2765

== ENCOUNTER 2019-08-02 16:35 | Inpatient (IN) | payer MEDICARE, MEDICAID ==
[~2019-08-02] VITALS: Ht 177.8 cm; Wt 108.9 kg
[2019-08-02] MEDS ORDERED: MORPHINE 4 MG/ML 1ML VIAL/SYRINGE (J2270) IV ONE ×2 (17:00→19:45)
[2019-08-02] MEDS ORDERED: NS 1,000 ML IV ONE (17:00)
[2019-08-02] MEDS ORDERED: METOCLOPRAMIDE INJ 10MG/2ML VIAL (J2765 PER 1) IV ONE (17:00)
[2019-08-02 17:29] LABS: BASO # 0.1 10^3/uL (0.0-0.2); BASO % 0.5 % (0.0-1.0); EOS # 0.1 10^3/uL (0.0-0.5); EOS % 1.2 % (0.0-3.0); HEMATOCRIT 39.3 % (36.0-47.0); HEMOGLOBIN 12.8 g/dl (12.0-15.5); LYMPH % 16.6 % (24.0-44.0); MEAN CORPUSCULAR HEMOGLOBIN 30.9 pg (27.0-33.0); MEAN CORPUSCULAR HGB CONC 32.6 g/dl (32.0-36.5); MEAN CORPUSCULAR VOLUME 94.9 fl (80.0-96.0); MONO # 0.7 10^3/uL (0.0-0.8); MONO % 5.5 % (0.0-5.0); NEUTROPHILS # 9.2 10^3/uL (1.5-8.5); NEUTROPHILS % 75.9 % (36.0-66.0); PLATELET COUNT, AUTOMATED 258 10^3/uL (150-450); RED BLOOD COUNT 4.14 10^6/uL (4.00-5.40); WHITE BLOOD COUNT 12.2 10^3/uL (4.0-10.0)
[2019-08-02] MEDS ORDERED: ISOVUE-370 76% 100ML VIAL As Ordered ONE (17:32)
[2019-08-02 18:08] LABS: ALT/SGPT 21 U/L (12-78); BILIRUBIN,DIRECT 0.1 MG/DL (0.0-0.2); BILIRUBIN,TOTAL 0.5 MG/DL (0.2-1.0); BLOOD UREA NITROGEN 16 MG/DL (7-18); CALCIUM LEVEL 9.2 MG/DL (8.8-10.2); CARBON DIOXIDE LEVEL 25 MEQ/L (21-32); CHLORIDE LEVEL 108 MEQ/L (98-107); CREATININE FOR GFR 0.96 MG/DL (0.55-1.30); GLOMERULAR FILTRATION RATE > 60.0 (>45); GLUCOSE, FASTING 93 MG/DL (70-100); LIPASE 98 U/L (73-393); POTASSIUM SERUM 4.1 MEQ/L (3.5-5.1); SODIUM LEVEL 140 MEQ/L (136-145); TOTAL PROTEIN 7.8 GM/DL (6.4-8.2)
--- NOTE | 2019-08-02 18:19 | REPVR ---
PROCEDURE INFORMATION: Exam: CT Abdomen And Pelvis With Contrast Exam date and time: 08/02/2019 6:05 PM Age: 64 years old Clinical indication: Abdominal pain; Localized; Left; Additional info: L sided abd pain with n/v/d R/O infectious process TECHNIQUE: Imaging protocol: Computed tomography of the abdomen and pelvis with intravenous contrast. Radiation optimization: All CT scans at this facility use at least one of these dose optimization techniques: automated exposure control; mA and/or kV adjustment per patient size (includes targeted exams where dose is matched to clinical indication); or iterative reconstruction. Contrast material: ISOVUE 370; Contrast volume: 100 ml; Contrast route: IV; COMPARISON: CT ABD/PEL W/IV CONTRAST ONLY 12/18/2018 11:46 PM FINDINGS: Lungs: Bibasilar atelectasis. Mediastinum: A moderate hiatal hernia is present. Liver: Normal. No mass. Gallbladder and bile ducts: There has been a cholecystectomy. Pancreas: Normal. No ductal dilation. Spleen: Normal. No splenomegaly. Adrenals: Normal. No mass. Kidneys and ureters: Normal. No hydronephrosis. Stomach and bowel: Sutures in the distal colon with a normal appearance of the colonic anastomosis. Mild diverticulosis is present in the left colon. No diverticulitis. Dilated loops of small bowel demonstrated in the lower abdomen with obliteration of fat demonstrated between several loops, finding which may indicate the presence of adhesions along with foci of interloop stranding. Findings consistent with developing small bowel obstruction. Appendix: No evidence of appendicitis. Intraperitoneal space: Unremarkable. No free air. No significant fluid collection. Vasculature: Unremarkable. No abdominal aortic aneurysm. Lymph nodes: Unremarkable. No enlarged lymph nodes. Bladder: Unremarkable as visualized. Reproductive: There has been a hysterectomy. Bones/joints: [id number] central spinal stenosis at L2-L3, L3-L4 and moderate to severe central spinal stenosis at L4-L5. Soft tissues: Fat containing spigelian hernia right lower quadrant. No incarceration. IMPRESSION: 1. A moderate hiatal hernia is present. 2. There has been a cholecystectomy. 3. There has been a hysterectomy. 4. Mild diverticulosis is present in the left colon. No diverticulitis. 5. Dilated loops of small bowel demonstrated in the lower abdomen with obliteration of fat demonstrated between several loops, finding which may indicate the presence of adhesions along with foci of interloop stranding. Findings consistent with developing small bowel obstruction. 6. Fat containing spigelian hernia right lower quadrant. No incarceration. Electronically signed by: Eliezer Johnson On 08/02/2019 18:18:55 PM
[2019-08-02] MEDS ORDERED: OXYMETAZOLINE NASAL SPRAY (AFRIN) ONE (19:45)
[2019-08-02] MEDS ORDERED: METO1TAB32 PO (19:57)
[2019-08-02] MEDS ORDERED: FLEC1TAB PO (19:57)
[2019-08-02] MEDS ORDERED: MOM 30ML SUSPENSION UDC PO PRN (20:00)
[2019-08-02] MEDS ORDERED: ACETAMINOPHEN TAB 650MG DOSE (2X325MG) PO PRN (20:00)
[2019-08-02] MEDS ORDERED: ONDANSETRON 4MG/2ML VIAL IV PRN (20:30)
[2019-08-02] MEDS ORDERED: GABAPENTIN 300 MG CAP PO PRN (20:45)
[2019-08-02] MEDS: FLECAINIDE 50MG TABLET PO SCH (21:00)
[2019-08-02] MEDS ORDERED: NS 1,000 ML IV SCH (21:00)
--- NOTE | 2019-08-02 21:19 | HPEPDOC ---
General Date of Admission August 02, 2019 at 19:52 Date of Service: August 02, 2019 Chief Complaint The patient is a 64-year-old female admitted with a reason for visit of Partial Small Bowel Obstruction. Source: Patient, Old records Exam Limitations: No limitations Timing/Duration: Getting worse Severity: Severe Associated Symptoms: Denies Symptoms History of Present Illness Patient is a 64-year-old female who is admitted from [facility] ED with complaints of abdominal pain, nausea and vomiting. Patient reported that the problem started in March, she was having severe abdominal pain, thought to be her gallbladder and subsequently she had a cholecystectomy March 2019. The pain remained u nresolved. Since then, she continues to have left upper quadrant, sharp, 10/10, nonradiating pain, accompanied by nausea and vomiting. The pain is only relieved by coming to the hospital. Patient has been able to eat today due to abdominal pain; reported that when she drinks fluids she vomits. Patient reported that today the pain was so bad she was unable to tolerate it. She has vomited twice today, once at home and once in the ED. Denied diarrhea or constipation or urinary symptoms. Patient had presented to [facility] ED last week, she was discharged from the ED and followed up with her PCP. Patient reported that her PCP thought that she was suffering from diverticular disease. Home Medications Scheduled Flecainide Acetate (Flecainide Acetate) 100 Mg Tablet, 100 MG PO BID, (Reported) Metoprolol Succinate (Metoprolol Succinate) 25 Mg Tab.er.24h, 25 MG PO DAILY, (Reported) Omeprazole (Omeprazole) 40 Mg Cap, 40 MG PO BID, (Reported) Rivaroxaban (Xarelto) 20 Mg Tab, 20 MG PO DAILY, (Reported) Scheduled PRN Acetaminophen (Acetaminophen) 325 Mg Tablet, 325 MG PO PRN PRN for PAIN, (Reported) Gabapentin (Gabapentin) 300 Mg Capsule, 300 MG PO TID PRN for PAIN, (Reported) Ondansetron (Ondansetron Odt) 4 Mg Tab.rapdis, 4 MG PO Q6-8HP PRN for nause a/vomiting Allergies Coded Allergies: Sulfa (Sulfonamide Antibiotics) (Verified Allergy, Unknown, RASH , 02/13/19) Past Medical History Medical History Paroxysmal atrial fibrillation. Sigmoid diverticulitis. Enteritis. Cholecystitis. Surgical History Cholecystectomy, March 2019 Bowel resection with ostomy, (2006?) With reversal. 6 weeks later. Appendectomy. Left shoulder surgery. Right wrist surgery. Hysterectomy Social History * Smoker: former Smoker (quit 2013) Alcohol: occationally Drugs: denies A-FIB/CHADSVASC A-FIB History Current/History of A-Fib/PAF?: Yes Current PO Anticoag Therapy: Yes Review of Systems Other systems A 10 point review of systems completed, otherwise negative except as noted in HPI Physical Examination General Exam: Positive: Alert, Cooperative, No Acute Distress Eye Exam: Positive: PERRLA, Conjunctiva & lids normal, EOMI; Negative: Sclera icteric ENT Exam: Positive: Atraumatic Neck Exam: Positive: Supple; Negative: thyromegaly Chest Exam: Positive: Clear to auscultation, Normal air movement Heart Exam: Positive: Rate Normal, Normal S1, Normal S2; Negative: Gallops, Murmurs, Rubs Abdomen Exam: Positive: BS Hypoactive, Soft, Other (distended); Negative: Tenderness Extremity Exam: Positive: Normal pulses; Negative: Clubbing, Cyanosis, Edema Skin Exam: Positive: Nl turgor and temperature; Negative: Rash, Breakdown, Lesion Neuro Exam: Positive: Normal Speech, Cranial Nerves 3-12 NL Psych Exam: Positive: Mood NL, Oriented x 3; Negative: Anxiety Vital Signs Vital Signs Date Time Temp Pulse Resp B/P (MAP) Pulse Ox O2 Delivery O2 Flow Rate FiO2 08/02/19 20:13 20 08/02/19 17:20 08/02/19 16:35 98.2 71 97 Laboratory Data Labs 24H Laboratory Tests 2 08/02/19 17:00: Immature Granulocyte % (Auto) 0.3, Neutrophils (%) (Auto) 75.9H, Lymphocytes (%) (Auto) 16.6L, Monocytes (%) (Auto) 5.5H, Eosinophils (%) (Auto) 1.2, Basophils (%) (Auto) 0.5, Neutrophils # (Auto) 9.2H, Lymphocytes # (Auto) 2.0, Monocytes # (Auto) 0.7, Eosinophils # (Auto) 0.1, Basophils # (Auto) 0.1, Nucleated Red Blood Cells % (auto) 0.0, Anion Gap 7L, Glomerular Filtration Rate > 60.0, Calcium Level 9.2, Total Bilirubin 0.5, Direct Bilirubin 0.1, Aspartate Amino Transf (AST/SGOT) 21, Alanine Aminotransferase (ALT/SGPT) 21, Alkaline Phosphatase 85, Total Protein 7.8, Albumin 4.0, Albumin/Globulin Ratio 1.05, Lipase 98 08/02/19 17:08: Urine Color YELLOW, Urine Appearance HAZY, Urine pH 5.0, Urine Specific [place] 1.024, Urine Protein NEGATIVE, Urine Glucose (UA) NEGATIVE, Urine Ketones TRACEH, Urine Blood NEGATIVE, Urine Nitrite NEGATIVE, Urine Bilirubin NEGATIVE, Urine Urobilinogen 2.0H, Urine Leukocyte Esterase TRACEH, Urine WBC (Auto) 5H, Urine RBC (Auto) 1, Urine Hyaline Casts (Auto) 0, Urine Bacteria (Auto) NEGATIVE, Urine Squamous Epithelial Cells 1, Urine Mucus (Auto) SMALL, Urine Sperm (Auto) 08/02/19 17:26: POC Glucose (Misc Panel) 100, POC Sodium (Misc Panel) 137, POC Potassium (Misc Panel) 6.6*H, POC Chloride (Misc Panel) 111H, POC Total CO2 (Misc Panel) 23.0, POC Blood Urea Nitrogen (Misc Panel 20, POC Ionized Calcium (Misc Panel) 3.6L, POC Creatinine (Misc Panel) 1.0, POC Hematocrit (Misc Panel) 38.0 CBC/BMP Laboratory Tests 08/02/19 17:00 Microbiology Microbiology 08/02/19 Urine Culture, Received Pending Assessment/Plan Patient is a 64-year-old female with an extended history of abdominal pain, nausea, vomiting, who returned to the ED today due to worsening LUQ abdominal pain. Patient has a past medical history which includes: Paroxysmal atrial fibrillation, Sigmoid diverticulitis, Enteritis, Cholecystitis. CT ABD/PEL W/IV CONTRAST ONLY IMPRESSION: 1. A moderate hiatal hernia is present. 2. There has been a cholecystectomy. 3. There has been a hysterectomy. 4. Mild diverticulosis is present in the left colon. No diverticulitis. 5. Dilated loops of small bowel demonstrated in the lower abdomen with obliteration of fat demonstrated between several loops, finding which may indicate the presence of adhesions along with foci of interloop stranding. Findings consistent with developing small bowel obstruction. 6. Fat containing spigelian hernia right lower quadrant. No incarceration. #1. Partial versus full small bowel obstruction. GI has been consulted . - NG tube will be placed for decompression. Continue pain management, Zofran for nausea, IV fluids #2. Paroxysmal atrial fibrillation. Patient reported that she goes in and out of A. fib, converting spontaneously or with PO fluids Continue at home metoprolol, flecainide, rivaroxaban Plan / VTE VTE Prophylaxis Ordered?: Yes (Rivaroxiban) Attending Note Attending Note I independently talked with and examined the patient and agree with the findings as documented by Katie Llanos with the addition of the following. 3. 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 KATIE LLANOS PA-C August 02, 2019 21:19 NEELIMA ALANIS MD August 03, 2019 05:25
[2019-08-02] MEDS ORDERED: MORPHINE 2 MG/ML 1ML VIAL (J2270) IV PRN (21:45)
[2019-08-02 22:11] VITALS: BP 154/84
[2019-08-02] MEDS: OMEPRAZOLE 20 MG CAP PO SCH (23:28)
[2019-08-02] MEDS ORDERED: RAMELTEON 8 MG TAB (ROZEREM) PO PRN (23:30)
[2019-08-03 05:53] LABS: HEMATOCRIT 36.4 % (36.0-47.0); HEMOGLOBIN 11.7 g/dl (12.0-15.5); MEAN CORPUSCULAR HEMOGLOBIN 30.7 pg (27.0-33.0); MEAN CORPUSCULAR HGB CONC 32.1 g/dl (32.0-36.5); MEAN CORPUSCULAR VOLUME 95.5 fl (80.0-96.0); PLATELET COUNT, AUTOMATED 238 10^3/uL (150-450); RED BLOOD COUNT 3.81 10^6/uL (4.00-5.40)
[2019-08-03 06:00] VITALS: BP 126/74
[2019-08-03 06:16] LABS: BLOOD UREA NITROGEN 13 MG/DL (7-18); CALCIUM LEVEL 8.5 MG/DL (8.8-10.2); CARBON DIOXIDE LEVEL 26 MEQ/L (21-32); CHLORIDE LEVEL 111 MEQ/L (98-107); CREATININE FOR GFR 0.89 MG/DL (0.55-1.30); GLOMERULAR FILTRATION RATE > 60.0 (>45); GLUCOSE, FASTING 87 MG/DL (70-100); POTASSIUM SERUM 3.9 MEQ/L (3.5-5.1); SODIUM LEVEL 142 MEQ/L (136-145)
[2019-08-03 06:53] LABS: CLOSTRIDIUM DIFFICILE PCR NEGATIVE (NEGATIVE)
[2019-08-03] MEDS: OMEPRAZOLE 20 MG CAP PO SCH (08:10)
[2019-08-03] MEDS: FLECAINIDE 50MG TABLET PO SCH (08:11)
[2019-08-03] MEDS ORDERED: METOPROLOL SUCC *XL* 25MG TAB (TopROL *XL*) PO SCH (09:00)
[2019-08-03] MEDS ORDERED: RIVAROXABAN 20 MG TAB (XARELTO) PO SCH (09:00)
--- NOTE | 2019-08-03 15:56 | CR ---
DATE OF CONSULTATION: 08/02/2019 CHIEF COMPLAINT: Crampy abdominal pain, nausea, vomiting. BRIEF HISTORY OF PRESENT ILLNESS: The patient is a 64-year-old female who presents with left-sided abdominal pain, nausea and vomiting. She states that she has had some problems like this in the past, specifically with left upper quadrant pain and discomfort. Initially thought this was her gallbladder. Had a cholecystectomy and still has had a couple more episodes of left upper quadrant pain and discomfort. She does have some dilated loops of small bowel on her x-ray. She is having increasing pain mostly not specifically in the left upper quadrant but the left mid abdomen is where she is pointing today. She still has the persistence of the pain and discomfort. She was concerned that she may have diverticulitis as a problem. She was seen about week and a half ago for this issue and was felt not to have diverticulitis at this time. No investigational imaging was performed at that time. PAST MEDICAL HISTORY: Significant for history of the atrial fibrillation (AFib), history of sigmoid diverticulitis with sigmoid colectomy, ileostomy and reversal of ileostomy, history of enteritis, history of cholecystitis, history of cholecystectomy, bowel resection with ostomy and reversal, history of appendectomy, left shoulder surgery, right wrist surgery, hysterectomy, and section. MEDICATION: Include flecainide, metoprolol, omeprazole, Xarelto, and some additional as-needed medications. PHYSICAL EXAMINATION: Reveals a 64-year-old female who looks older than stated age. HEENT is unremarkable. Neck: Supple without adenopathy. Lungs are clear to auscultation without crackles, wheezes or rhonchi. Heart is regular without murmur. Abdomen is softly distended, without any guarding, without any rebound. No peritoneal signs. Extremities: Warm, well-perfused. White count is slightly elevated at this time. The CAT scan does show that she has some mildly dilated loops on the left hand side of the abdomen, although this does not seem to extend all the way up to the stomach itself, although the patient does have a moderate size hiatal hernia. Does have some fluid within her stomach at this time. She has also evidence of fat that has herniated through the ileostomy site. I can see the staple line in the small bowel and does not appear to have a specific small bowel stricture at the anastomosis per se. IMPRESSION/PLAN: The patient has a probable partial obstruction at this time, although it is hard to tell. She states that she did have a bowel movement this morning with the nausea, vomiting and the discomfort. This may be a small loop that is causing the majority of a problem and it may be reasonable to put a nasogastric (NG) tube to prevent additional secretions from working its way distally and contributing to this obstructive looking picture, and we will keep her nothing by mouth. We will see how she is doing overnight. If she has some significant progress, possibly discontinuing the NG tube, progressing her diet as warranted. However with the prolonged presentation of this I do have concerns that this may not resolve spontaneously. Thus, I would recommend that if we still do not seem to be making a lot of progress over the next 24-48 hours we perform a small-bowel follow-through via the NG tube and we will see if there is a specific area that would be amenable to lysis of adhesions. Once again the hope is that this would be able to be performed laparoscopic but we will see you how she does over the ensuing 12-24 hours.
--- NOTE | 2019-08-05 10:02 | DSES ---
DATE OF ADMISSION: 08/02/2019 DATE OF DISCHARGE: 08/03/2019 PRINCIPAL DIAGNOSIS: Small bowel obstruction. PRIMARY CARE PROVIDER: Dr. Shreya Meza SURGEON: Dr. Nicholas Royal HISTORY: Brenda Dior is a 64-year-old admitted with a small bowel obstruction. She underwent an elective cholecystectomy in 03/2019. She has had intermittent abdominal pain since then. See details in history and physical of admission. HOSPITAL COURSE: She was admitted to a medical bed. The small bowel obstruction resolved spontaneously after nasogastric suctioning. She wants to go home today. She is passing gas. She had a bowel movement (several). I feel she is ready for discharge. PHYSICAL EXAMINATION: Vital signs are stable. 126/74. Afebrile. Lungs: Clear. Heart: Regular rate and rhythm. Abdomen: Soft. Nontender. Nondistended. No peripheral edema. LABS: Electrolytes unremarkable. White count 7. Hemoglobin 11.7. DISPOSITION: Patient is discharged home in improved and stable condition. She will followup with Dr. Meza in the [place] office in a week and also should followup with Dr. Royal for evaluation of her persisting abdominal pain. Followup with Dr. Meza in a week and Dr. Nicholas Royal in one or two weeks for evaluation of her persisting abdominal symptoms. Her medications on discharge are unchanged from admission, flecainide 100 mg twice a day as needed for atrial fibrillation, gabapentin 300 mg three times a day, metoprolol succinate 25 mg daily, omeprazole 40 mg twice a day, Zofran as needed, Xarelto 20 mg daily. She is on a soft BRAT diet for now, advancing to a regular diet as tolerated. At the time of this dictation, there are no pending labs.
== END 2019-08-03 11:45 | disposition home or self-care (01) | DRG 390 ==
LOC: M ED 16:35 → M ED INP 19:52 → ENRESERV 20:26 → M MSPAV 22:11
PROVIDERS: ADMIT Internal Medicine; ATTEND Family Medicine
DX: K56.609 Unspecified intestinal obstruction, unspecified as to partial versus complete obstruction (principal); Z79.899 Other long term (current) drug therapy; Z88.2 Allergy status to sulfonamides; I48.0 Paroxysmal atrial fibrillation; K57.30 Diverticulosis of large intestine without perforation or abscess without bleeding; Z87.891 Personal history of nicotine dependence

== ENCOUNTER → 2019-09-02 | Outpatient (REF) | payer MEDICARE, MEDICAID ==
[~2019-09-02] MED LIST changes: +FLEC1TAB PO; +METO1TAB32 PO
== END ==
LOC: M LAB REF 08:23
PROVIDERS: ATTEND Dermatology
DX: D04.39 Carcinoma in situ of skin of other parts of face (principal); L81.4 Other melanin hyperpigmentation; L57.8 Other skin changes due to chronic exposure to nonionizing radiation

== ENCOUNTER → 2019-09-17 | Outpatient (REF) | payer MEDICARE | LOC: M LAB REF 16:15 | PROVIDERS: ATTEND Physician Assistant | DX: R30.0 Dysuria (principal) ==

== ENCOUNTER → 2019-10-15 | Outpatient (REF) | payer MEDICARE, MEDICAID | LOC: M LAB REF 14:29 | PROVIDERS: ATTEND Dermatology | DX: D04.39 Carcinoma in situ of skin of other parts of face (principal) ==

== ENCOUNTER → 2019-12-31 | Outpatient (REF) | payer MEDICARE, MEDICAID ==
[~2019-12-31] MED LIST changes: +PANT40TA29 PO; -PANT40TA3 PO
[2019-12-31 13:25] LABS: HEMOGLOBIN A1c 5.2 %
[2019-12-31 14:03] LABS: ALBUMIN 3.9 GM/DL (3.2-5.2); ALT/SGPT 23 U/L (12-78); BILIRUBIN,TOTAL 0.3 MG/DL (0.2-1.0); BLOOD UREA NITROGEN 19 MG/DL (7-18); CALCIUM LEVEL 9.2 MG/DL (8.8-10.2); CARBON DIOXIDE LEVEL 27 MEQ/L (21-32); CHLORIDE LEVEL 105 MEQ/L (98-107); CREATININE FOR GFR 0.85 MG/DL (0.55-1.30); FREE T4 1.04 NG/DL (0.76-1.46); GLOMERULAR FILTRATION RATE > 60.0 (>45); GLUCOSE, FASTING 86 MG/DL (70-100); NT-PRO BNP 144 PG/ML (<125); POTASSIUM SERUM 4.2 MEQ/L (3.5-5.1); SODIUM LEVEL 140 MEQ/L (136-145); TOTAL PROTEIN 7.5 GM/DL (6.4-8.2)
== END ==
LOC: M SFHCADAM 10:14
PROVIDERS: ATTEND Family Medicine
DX: R35.0 Frequency of micturition (principal); R60.9 Edema, unspecified; Z79.899 Other long term (current) drug therapy

== ENCOUNTER → 2020-01-14 | Outpatient (CLI) | payer MEDICARE, MEDICAID ==
--- NOTE | 2020-01-14 15:23 | REP ---
INDICATION: NECK STIFFNESS COMPARISON: None. TECHNIQUE: AP, lateral, flexion/extension, bilateral oblique, and open-mouth views. FINDINGS: Alignment and lordosis is maintained. Generalized age-related changes are appreciated throughout the cervical spine including mild osteopenia and minimal endplate sclerosis with subtle spurring. No acute fracture/compression injury or subluxation. Open mouth view demonstrates normal C1-C2 articulation and odontoid process. Prevertebral soft tissues are normal. Spinous processes are intact. IMPRESSION: Mild age-related multilevel degenerative changes <Electronically signed by Heri Reddy > 01/14/20 [id number]
== END ==
LOC: M ADAMS 09:57
PROVIDERS: ATTEND Family Medicine
DX: M43.6 Torticollis (principal)
CPT/HCPCS: 72050; G0463; G8483

== ENCOUNTER → 2020-02-15 | Outpatient (REF) | payer MEDICARE, MEDICAID ==
[2020-02-15 14:02] LABS: APPEARANCE, URINE CLEAR (CLEAR); BACTERIA, URINE AUTO NEGATIVE (NEGATIVE); BILIRUBIN, URINE AUTO NEGATIVE (NEGATIVE); BLOOD, URINE BLOOD NEGATIVE (NEGATIVE); COLOR, URINE YELLOW (YELLOW); GLUCOSE, URINE (UA) AUTO NEGATIVE (NEGATIVE); KETONE, URINE AUTO TRACE mg/dL (NEGATIVE); LEUKOCYTE ESTERASE, URINE AUTO NEGATIVE (NEGATIVE); NITRITE, URINE AUTO NEGATIVE (NEGATIVE); PROTEIN, URINE AUTO NEGATIVE (NEGATIVE); RBC, URINE AUTO 3 /HPF (0-3); SPECIFIC GRAVITY URINE AUTO 1.026 (1.002-1.035); SQUAMOUS EPITHELIAL CELL UR AU 2 /HPF (0-6); UROBILINOGEN, URINE AUTO 0.2 mg/dL (0.0-2.0); WBC, URINE AUTO 1 /HPF (0-3)
== END ==
LOC: M SFHCADAM 13:06
PROVIDERS: ATTEND Family Medicine
DX: R35.0 Frequency of micturition (principal)
CPT/HCPCS: 81001; 81002; 87088; 87186; G0463

== ENCOUNTER 2020-03-27 11:58 | Emergency (ER) | payer MEDICARE, MEDICAID ==
[~2020-03-27] VITALS: Ht 180.3 cm; Wt 114.8 kg
[~2020-03-27 11:58] MED LIST changes: +GABA-282 PO; -GABA-843 PO
[2020-03-27 11:59] VITALS: BP 137/66
== END 2020-03-27 13:00 | disposition left against medical advice (07) ==
LOC: M ED 11:58
DX: Z53.9 Procedure and treatment not carried out, unspecified reason (principal)

== ENCOUNTER → 2020-04-15 | Outpatient (REF) | payer OTHER ==
[~2020-04-15] MED LIST changes: +COLA100C5 PO
== END ==
LOC: M LAB REF 16:39
PROVIDERS: ATTEND Physician Assistant
DX: M54.5 Low back pain (principal)

== ENCOUNTER 2020-04-18 12:00 | Emergency (ER) | payer MEDICARE, OTHER ==
[~2020-04-18] VITALS: Ht 180.3 cm; Wt 114.6 kg
[~2020-04-18 12:00] MED LIST changes: -COLA100C5 PO
--- OUTSIDE RECORDS SUMMARY | 2020-04-18 12:11 | CCD | Continuity of Care Document ---
Author Author Brenda ZARAGOZA Organization Unknown Address [address] [place] [address] [place] [address] Phone [phone] Care Team Providers Care Asset Management Lead Name Role Phone [facility] AUTM [phone] Problems Description No Information Available Social History Type Date Description Comments Sex Unknown Tobacco Use Start: Unknown End: Unknown Former Cigarette Smo ker 1 Pack Daily quit 2013 Smoking Status Reviewed: 07/30/18 Former Cigarette Smoker 1 Pac k Daily quit 2013 ETOH Use Occasionally consumes wine Allergies, Adverse Reactions, Alerts Active Allergies Reaction Severity Comments Date Sulfa 07/30/2018 Medications Active Medications SIG Qnty Indications Ordering Provide r Date Tizanidine HCL 4mg Tablets 1 tablet by mouth every 8 hours as needed 14tabs Dagoberto Blue JR., M.D. 04/17/2020 Methylprednisolone 4mg Tablets 6 tablets po today, 5 tabs po day 2, 4 tabs po day 3, 3 tabs po day 4, 2 tabs po day 5, 1 tab po day 6 21tabs Dagoberto Blue JR., M.D. Macrobid 100mg Capsules 1 cap by mouth twice a day for 5 days with food 10caps M54.5 Dagoberto grady JR., M.D. 04/15/2020 Flecainide Acetate 100mg Tablets Unknown Xarelto 10mg Tablets Unknown Omeprazole Unknown Gabapentin 300mg Capsules Unknown Metoprolol Succinate ER 25mg Tablets ER 24HR Unknown Immunizations Description No Information Available Vital Signs Date Vital Result Comment 04/15/2020 11:45am BP Systolic 136 mmHg BP Diastolic 78 mmHg Heart Rate 78 /min Respiratory Rate 16 /min O2 % BldC Oximetry 99 % Body Temperature 98.7 F Weight 240.00 lb Height 72 inches 6'0" BMI (Body Mass Index) 32.5 kg/m2 Pain Level 6 09/17/2019 1:49pm BP Systolic 129 mmHg BP Diastolic 80 mmHg Heart Rate 70 /min Respiratory Rate 18 /min O2 % BldC Oximetry 98 % Body Temperature 98.5 F Weight 240.00 lb Height 72 inches 6'0" BMI (Body Mass Index) 32.5 kg/m2 Pain Level 2 Results Test Acquired Date Facility Test Result H/L Range Note Laboratory test finding 04/15/2020 [place] [id number] [phone] Urine Culture FULL REPORT IN L <SEE NOTE> Normal 1 1 FULL REPORT IN LAB NOTES (eC W and [facility]). SPECIMEN APPEARS CONTAMINATED Procedures Description No Information Available Medical Devices Description No Information Available Encounters Type Date Location Provider Dx Diagnosis Office Visit 04/15/2020 11:15a [facility] Edson Zaragoza, P .ASebastián M54.5 Low back pain Assessments Date Code Description Provider 04/15/2020 M54.5 Low back pain Edson flores PLuciana Plan of Treatment No Information Available Functional Status Description No Information Available Mental Status Description No Information Available Referrals Description No Information Available
--- OUTSIDE RECORDS SUMMARY | 2020-04-18 12:12 | CCD | Continuity of Care Document ---
Author Author Brenda ZARAGOZA Organization Unknown Address [address] [place] [address] [place] [address] Phone [phone] Care Team Providers Care [employer] Executive Director Name Role Phone [facility] AUTM [phone] Problems Description No Information Available Social History [...] SIG Qnty Indications Ordering Provide r Date Macrobid 100mg Capsules 1 cap by mouth [...] H/L Range Note Laboratory test finding 04/15/2020 [facility] [address] [place], [place] [id number] [phone] Urine Culture <pending> Procedures Description No Information Available Medical Devices Description No Information Available Encounters Type Date Location Provider Dx Diagnosis Office Visit 04/15/2020 11:15a [facility] Raymond Townsend M54.5 Low back pain Assessments Date Code Description Provider 04/15/2020 M54.5 Low back pain Felicita Harper Plan of Treatment 04/15/2020 - Felicita Townsend* M54.5 Low back pain* New Medication:* Macrobid 100 mg - 1 cap by mouth twice a day for 5 days with food * Comments:* UA noted above, not likely bacterial UTIPatient concerned as she had similar symptoms just recently with UTI, will have her start Macrobid until C&S is returnedPush fluidsMonitor symptomsWill defer further labs or imaging today as on-site facility is closedShe will report to ED in the next 48 hours for persisting or worsening painFollow with PCP next week as needed Functional Status Description No Information Available Mental Status Description No Information Available Referrals Description No Information Available
--- OUTSIDE RECORDS SUMMARY | 2020-04-18 12:12 | CCD ---
Author Author [facility] Organization [facility] Address Unknown Phone Unavailable Care Team Providers Care [employer] Name Role Phone Shreya Meza Unavailable PROBLEMS Type Condition ICD9-CM Code [id number] Code Onset Dates Condition S tatus SNOMED Code Notes Problem Gastroparesis K31.84 Active 597642001 Problem Gastroesophageal reflux disease, esophagitis pre sence not specified K21.9 Active 521537339 Problem Obesity due to excess calories, unspecified obesity severi ty E66.09 Active 277582830 Problem New daily persistent headache G44.52 Active 12 1383525300711 Problem Paroxysmal atrial fibrillation I48.0 Active 2 31211844 Rate controlled and anticoagulated. Problem Pulmonary nodule R91.1 Active 501013845 Problem Nevus of head D22.4 Active 30881478 Problem History of nonmelanoma skin cancer Z85.828 Activ e 299647238 Problem Lentigines L81.4 Active 400232841 Problem History of cholecystectomy Z90.49 Active 47103 2003 Problem Essential hypertension I10 Active 03901863 Problem Calculus of gallbladder without cholecystitis wi thout obstruction K80.20 Active 97900143 Problem SK (seborrheic keratosis) L82.1 Active 749654 009 Problem Melanocytic nevi of left upper limb, including shoulder D22.62 Active 019282141 Problem Melanocytic nevi of right upper limb, including shoulder D22.61 Active 962300891 Problem Melanocytic nevi of trunk D22.5 Active 625039 002 ALLERGIES Allergen (clinical drug ingredient) Drug/Non Drug Allergy do cumented on EMR Reaction Allergy Type Onset Date Status Sulfa (for allergy use only) Rash Drug Allergy Active ENCOUNTERS from 1955 to 2020-04-09 Encounter Location Date Provider Diagnosis [facility] [place] [id number] [place] [id number] 28 Dec, 20 20 Shreya Sean-Tartell Neck pain on right side M54.2 and Injury of right wrist, subsequent encounter S69.91XD IMMUNIZATIONS Vaccine Route Administration Date Status Influenza (18 yrs & older) Flublok IM Intramuscular Feb 05, 2019 Administered Influenza (18 yrs & older) Flublok IM Intramuscular Feb 12, 2018 Administered Pneumococcal 0.5mL (Prevnar 13) IM Intramuscular Feb 05, 2019 Administered Influenza (6mo & up) Fluzone IM Intramuscular Feb 05, 2017 Ad ministered SOCIAL HISTORY Tobacco Use: Social History Observation Description Date Details (start date - stop date) Former Smoker Sex Assigned At : Social History Observation Description Sex Assigned At Unknown Education: Question Answer Notes Level of Education: Professional Schools/Masters/PhD [employer] Audit Question Answer Notes Total Score: 1 Interpretation: Alcohol Education Sexual Hx: Question Answer Notes Had sex in the last 12 months (vaginal, oral, or anal)? Yes LMP: 1986 Have you ever had an STD? No with Men only Use protection? No Drug and Alcohol Question Answer Notes Total Score: 0 Interpretation: No problems reported Alcohol Screening: Question Answer Notes Did you have a drink containing alcohol in the past year? Ye s Points 1 Interpretation Negative How often did you have six or more drinks on one occas ion in the past year? Never (0 points) How many drinks did you have on a typica l day when you were drinking in the past year? 1 or 2 (0 points) How often did you have a drink containing alcohol in t he past year? Monthly or less (1 point) BMI Care Goal Follow-Up Question Answer Notes Above Normal BMI Follow-Up Dietary management educatio n, guidance, and counseling Tobacco Use: Question Answer Notes Are you a: former smoker How long has it been since you last smoked? 1-5 years REASON FOR REFERRAL No Information VITAL SIGNS Weight 253.4 lbs Mar, Height 5'10" in Mar, BMI 36.36 kg/m2 Mar, Heart Rate 99 /min Mar, Respiratory Rate 18 /min Mar, Temperature 96.5 degrees Fahrenheit Mar, Oximetry 94 Mar, Blood pressure systolic 140 mm Hg Mar, Blood pressure diastolic 80 mm Hg Mar, MEDICATIONS Medication SIG (Take, Route, Frequency, Duration) Notes Start Da te End Date Status Gabapentin 300 MG 1 capsule Orally Three times a day for 30 Active Flecainide Acetate 100 MG 1 tab Orally twice daily Active Xarelto 20 MG 1 tablet with food Orally Once a day Active Metoprolol Succinate ER 25 mg 1 tablet Orally Once a day for 30 Active Lasix 20 MG 1 tablet Orally Once a day prn Active Omeprazole 40 MG 1 capsule Orally bid for 90 days Active Flonase Allergy Relief 50 MCG/ACT 1 spray in each nost ril Nasally Once a day for 60 Active Zofran 4 MG 1 tablet Orally Once a day as needed for 30 Active PROCEDURES No Information RESULTS No Results REASON FOR VISIT [phone] week follow up MEDICAL (GENERAL) HISTORY Type Description Date Medical History hiatal hernia and GERD Medical History diverticulosis Medical History colonoscopy (05/2016) with fa ir prep, 1 tubular adenoma, 1 hyperplastic polyp, small internal hemorrhoids, follow up in 3 years Medical History EGD (11/2018) with medium to large hiatal hernia, continue gastroparesis diet Medical History gastroparesis ([place] gastric emptying study 06/2016) Medical History treadmill stress test (06/2016) shows no ischemic changes Medical History last tetanus shot approx (2013) Medical History 10 year ASCVD risk 4.6% (08/2016) Medical History normal mammogram (07/2018) Medical History ovarian cancer Medical History CT chest (05/2019) shows fatt y liver, 5 mm RLL nodule, large hiatal hernia Medical History paroxysmal atrial fibrillation, sees Dr. Lafleur Surgical History hysterectomy with oophorecto my (remaining ovary) for ovarian cancer Surgical History tonsil Surgical History c section Surgical History left shoulder Surgical History right wrist Surgical History sigmoid resection with ostomy and revers al Surgical History oophorectomy (one ovary) and appendectom y for ovarian cancer Surgical History breast lump removal (fatty tumor) 1997 Surgical History teeth removed 06-16 Surgical History L eye lesion 11/16 Surgical History cholecystectomy 03/19 Hospitalization History surgeries Hospitalization History partial SBO, resolved with NG decomp ression 07/2019 Goals Section No Information Health Concerns No Information MEDICAL EQUIPMENT No Information MENTAL STATUS No Information FUNCTIONAL STATUS No Information ASSESSMENTS Encounter Date Diagnosis Assessment Notes Treatment Notes Treatm ent Clinical Notes Mar, Neck pain on right side (ICD-10 - M54.2) Referred to PT, may send to ortho if necessary. Recent X ray. Tylenol for pain relief. Mar, Injury of right wrist, subsequent encounter (ICD -10 - S69.91XD) Reports X ray in UC, plan to follow with ortho. PLAN OF TREATMENT Treatment Notes Assessment Notes Clinical Notes Neck pain on right side Referred to PT, may send to ortho if necessary. Recent X ray. Tylenol for pain relief. Injury of right wrist, subsequent encounter Reports X ray in UC, plan to follow with ortho. Next Appt Details 6 Weeks Reason:f/u Follow Up:6 Weeksf/u Insurance Providers Payer Name Payer Address Payer Phone Insured Name Patient Relati onship to Insured Coverage Start Date Coverage End Date [facility] [id number] [facility] [id number] ELIZABETH GOMEZ MEDICAID [facility] [employer] [address] [facility] [id number] ELIZABETH GOMEZ
--- OUTSIDE RECORDS SUMMARY | 2020-04-18 12:12 | CCD ---
Author Author [facility] Organization [facility] Address Unknown Phone Unavailable Support Name Relationship Address Phone Zeyad Campbell Next Of Kin Unknown Unavailable [place] [address] PER, NONE Next Of Kin Unknown Unavailable Minnie Guzman DDS Next Of Kin [address] [place], [place] [id number] RETIRED Next Of Kin Unknown RE Next Of Kin Unknown Unavailable SONJA SCOTT Next Of Kin [id number] [place] [address] Minnie Guzman DDS Next Of Kin [address] [place] [address] UE Next Of Kin Unknown Unavailable ZEYAD BUSTAMANTE [place] [address] RET Next Of Kin RETIRED Unknown Unavailable [place] [address] CONTACT, NO Next Of Kin Unknown MAXIMS Next Of Kin [address] [place] [address] UN Next Of Kin Unknown Unavailable MICHELLE KERN Next Of Kin [facility] [address] [place] [address] BRAYDON RAMON Next Of Kin UNKNOWN [place], [place] [id number] [facility] Next Of Kin Unknown REUBEN BORREGO Next Of Kin [address] [place] [address] Fernie Campbell ECON [id number] [place] [address] Sonja Scott ECON [id number] [place] [address] [phone] Edwin Scott ECON Unknown Unavailable Care Team Providers Care Shopper Name Role Phone Fons, M Missy FRUIT CANNER Unavailable Unavailable Fons, M Missy FRUIT CANNER Unavailable Unavailable Fons, M Missy FRUIT CANNER Unavailable Unavailable Fons, M Missy FRUIT CANNER Unavailable Unavailable Fons, M Missy FRUIT CANNER Unavailable Unavailable Fons, M Missy FRUIT CANNER Unavailable Unavailable Fons, M Missy FRUIT CANNER Unavailable Unavailable Fons, M Missy FRUIT CANNER Unavailable Unavailable Fons, M Missy FRUIT CANNER Unavailable Unavailable Fons, M Missy FRUIT CANNER Unavailable Unavailable Fons, M Missy FRUIT CANNER Unavailable Unavailable Fons, M Missy FRUIT CANNER Unavailable Unavailable Fons, M Missy FRUIT CANNER Unavailable Unavailable Fons, M Missy FRUIT CANNER Unavailable Unavailable Fons, M Missy FRUIT CANNER Unavailable Unavailable Fons, M Missy FRUIT CANNER Unavailable Unavailable Fons, M Missy FRUIT CANNER Unavailable Unavailable Fons, M Missy FRUIT CANNER Unavailable Unavailable Fons, M Missy FRUIT CANNER Unavailable Unavailable Fons, M Missy FRUIT CANNER Unavailable Unavailable Fons, M Missy FRUIT CANNER Unavailable Unavailable Fons, M Missy FRUIT CANNER Unavailable Unavailable Fons, M Missy FRUIT CANNER Unavailable Unavailable Fons, M Missy FRUIT CANNER Unavailable Unavailable Fons, M Missy FRUIT CANNER Unavailable Unavailable Fons, M Missy FRUIT CANNER Unavailable Unavailable Fons, M Missy FRUIT CANNER Unavailable Unavailable Fons, M Missy FRUIT CANNER Unavailable Unavailable Fons, M Missy FRUIT CANNER Unavailable Unavailable Fons, M Missy FRUIT CANNER Unavailable Unavailable Fons, M Missy FRUIT CANNER Unavailable Unavailable Fons, M Missy FRUIT CANNER Unavailable Unavailable Fons, M Missy FRUIT CANNER Unavailable Unavailable Fons, M Missy FRUIT CANNER Unavailable Unavailable Fons, M Missy FRUIT CANNER Unavailable Unavailable Fons, M Missy FRUIT CANNER Unavailable Unavailable Fons, M Missy FRUIT CANNER Unavailable Unavailable Fons, M Missy FRUIT CANNER Unavailable Unavailable Fons, M Missy FRUIT CANNER Unavailable Unavailable Fons, M Missy FRUIT CANNER Unavailable Unavailable Fons, M Missy FRUIT CANNER Unavailable Unavailable Fons, M Missy FRUIT CANNER Unavailable Unavailable Fons, M Missy FRUIT CANNER Unavailable Unavailable Fons, M Missy FRUIT CANNER Unavailable Unavailable Fons, M Missy FRUIT CANNER Unavailable Unavailable Fons, M Missy FRUIT CANNER Unavailable Unavailable Fons, M Missy FRUIT CANNER Unavailable Unavailable Fons, M Missy FRUIT CANNER Unavailable Unavailable Fons, M Missy FRUIT CANNER Unavailable Unavailable Fons, M Missy FRUIT CANNER Unavailable Unavailable Fons, M Missy FRUIT CANNER Unavailable Unavailable Fons, M Missy FRUIT CANNER Unavailable Unavailable Fons, M Missy FRUIT CANNER Unavailable Unavailable Fons, M Missy FRUIT CANNER Unavailable Unavailable RING, K WILLIAN PA Unavailable Unavailable RING, K WILLIAN PA Unavailable Unavailable RING, K WILLIAN PA Unavailable Unavailable RING, K WILLIAN PA Unavailable Unavailable RING, K WILLIAN PA Unavailable Unavailable RING, K WILLIAN PA Unavailable Unavailable RING, K WILLIAN PA Unavailable Unavailable RING, K WILLIAN PA Unavailable Unavailable RING, K WILLIAN PA Unavailable Unavailable RING, K WILLIAN PA Unavailable Unavailable RING, K WILLIAN PA Unavailable Unavailable RING, K WILLIAN PA Unavailable Unavailable RING, K WILLIAN PA Unavailable Unavailable RING, K WILLIAN PA Unavailable Unavailable RING, K WILLIAN PA Unavailable Unavailable RING, K WILLIAN PA Unavailable Unavailable RING, K WILLIAN PA Unavailable Unavailable RING, K WILLIAN PA Unavailable Unavailable RING, K WILLIAN PA Unavailable Unavailable RING, K WILLIAN PA Unavailable Unavailable Dille, E Minnie DDS Unavailable Unavailable Dille, E Minnie DDS Unavailable Unavailable Dille, E Minnie DDS Unavailable Unavailable Dille, E Minnie DDS Unavailable Unavailable NIK, RITA PA Unavailable Unavailable NIK, RITA PA Unavailable Unavailable NIK, RITA PA Unavailable Unavailable NIK, RITA PA Unavailable Unavailable NIK, RITA PA Unavailable Unavailable NIK, RITA PA Unavailable Unavailable NIK, RITA PA Unavailable Unavailable NIK, RITA PA Unavailable Unavailable NIK, RITA PA Unavailable Unavailable NIK, RITA PA Unavailable Unavailable NIK, RITA PA Unavailable Unavailable NIK, RITA PA Unavailable Unavailable NIK, RITA PA Unavailable Unavailable NIK, RITA PA Unavailable Unavailable NIK, RITA PA Unavailable Unavailable NIK, RITA PA Unavailable Unavailable NIK, RITA PA Unavailable Unavailable NIK, RITA PA Unavailable Unavailable NIK, RITA PA Unavailable Unavailable NIK, RITA PA Unavailable Unavailable NIK, RITA PA Unavailable Unavailable NIK, RITA PA Unavailable Unavailable NIK, RITA PA Unavailable Unavailable NIK, RITA PA Unavailable Unavailable NIK, RITA PA Unavailable Unavailable NIK, RITA PA Unavailable Unavailable NIK, RITA PA Unavailable Unavailable NIK, RITA PA Unavailable Unavailable NIK, RITA PA Unavailable Unavailable NIK, RITA PA Unavailable Unavailable NIK, RITA PA Unavailable Unavailable NIK, RITA PA Unavailable Unavailable NIK, RITA PA Unavailable Unavailable NIK, RITA PA Unavailable Unavailable NIK, RITA PA Unavailable Unavailable NIK, RITA PA Unavailable Unavailable NIK, RITA PA Unavailable Unavailable NIK, RITA PA Unavailable Unavailable Rosales, Meg Erlinda PA Unavailable Unavailable Rosales, Meg Erlinda PA Unavailable Unavailable Rosales, Meg Erlinda PA Unavailable Unavailable Rosales, Meg Erlinda PA Unavailable Unavailable Rosales, Meg Erlinda PA Unavailable Unavailable Rosales, Meg Erlinda PA Unavailable Unavailable Rosales, Meg Erlinda PA Unavailable Unavailable Rosales, Meg Erlinda PA Unavailable Unavailable Rosales, Meg Erlinda PA Unavailable Unavailable Rosales, Meg Erlinda PA Unavailable Unavailable Re-disclosure Warning The records that you are about to access may contain information from federally-assisted alcohol or drug abuse programs. If such information is present, then the following federally mandated warning applies: This information has been disclosed to you from records protected by federal confidentiality rules (42 CFR part 2). The federal rules prohibit you from making any further disclosure of this information unless further disclosure is expressly permitted by the written consent of the person to whom it pertains or as otherwise permitted by 42 CFR part 2. A general authorization for the release of medical or other information is NOT sufficient for this purpose. The Federal rules restrict any use of the information to criminally investigate or prosecute any alcohol or drug abuse patient.The records that you are about to access may contain highly sensitive health information, the redisclosure of which is protected by Article 27-F of the [facility] Public Health law. If you continue you may have access to information: Regarding HIV / AIDS; Provided by facilities licensed or operated by the [facility] Office of Mental Health; or Provided by the [facility] Office for People With Developmental Disabilities. If such information is present, then the following [facility] mandated warning applies: This information has been disclosed to you from confidential records which are protected by state law. State law prohibits you from making any further disclosure of this information without the specific written consent of the person to whom it pertains, or as otherwise permitted by law. Any unauthorized further disclosure in violation of state law may result in a fine or penitentiary sentence or both. A general authorization for the release of medical or other information is NOT sufficient authorization for further disc losure. Allergies and Adverse Reactions Type Description Substance Reaction Status Data Source(s ) Sulfa (for allergy use only) Sulfa (for allergy use only) Gupta lfa (for allergy use only) Rash Active eCW1 ([facility]) Sulfa (for allergy use only) Sulfa (for allergy use only) Gupta lfa (for allergy use only) Rash Active eCW1 ([facility]) Family History Family Member Name Family Member Gender Family Member Status Date o f Status Description Data Source(s) Unknown Unknown Problem MEDENT ([facility], ) PGM-Dx in her late 60's Encounters Encounter Providers Location Date Indications Data Source(s ) Outpatient Attender: RITA marinelli 04/15/2020 10:15:00 AM EST MEDENT ([facility] Outpatient [address] [facility] [id number] 03/28/2020 12:00:00 AM EST eCW1 ([facility]) Unknown [address] [place] [address] 02/17/2020 12:00:00 AM EST eCW1 ([facility]) Outpatient [address] [facility] [id number] 01/14/2020 12:00:00 AM EDT eCW1 ([facility]) Office Visit, Est Pt., Level 3 [address] [place] [address] 12/31/2019 12:00:00 AM EDT eCW1 ([facility]) Outpatient [address] [facility] [id number] 10/22/2019 12:00:00 AM EDT eCW1 ([facility]) Outpatient [address] [place] [phone] 10/19/2019 12:00:00 AM EDT eCW1 ([facility]) Outpatient Attender: Minnie MCCLELLANDNDC 10/01/2019 03:18:00 P M EDT [facility] Outpatient Attender: WILLIAN Hdez Primary 09/17/2019 01:45:00 PM EDT MEDENT ([facility]) [facility] [address] [facility] [place] [address] 09/14/2019 12:00:00 AM EDT eCW1 ([facility]) Outpatient [address] [facility] [place] [address] 09/02/2019 12:00:00 AM EDT eCW1 ([facility]) Outpatient 08/13/2019 09:09:00 PM EDT [facility] Unknown [address] [facility] [place] [address] 08/04/2019 12:00:00 AM EDT eCW1 ([facility]) [facility] [address] [facility] [place] [address] 08/04/2019 12:00:00 AM EDT eCW1 ([facility]) [facility] [address] [facility] [place] [address] 07/30/2019 12:00:00 AM EDT eCW1 ([facility]) [facility] [address] [facility] [place] [address] 07/27/2019 12:00:00 AM EDT eCW1 ([facility]) [facility] [address] [facility] [place] [address] 07/27/2019 12:00:00 AM EDT eCW1 ([facility]) Outpatient 07/16/2019 06:03:00 AM EDT [facility] [address] [facility] [place] [address] 07/15/2019 12:00:00 AM EDT eCW1 ([facility]) Outpatient Attender: Erlinda Hdez Prim melanie 06/19/2019 05:15:00 PM EDT MEDENT ([facility]) [facility] [address] [facility] [place] [address] 06/19/2019 12:00:00 AM EDT eCW1 ([facility]) [facility] [place] [address] [facility] [place] [address] 06/18/2019 12:00:00 AM EDT eCW1 ([facility]) [facility] [address] [facility] [place] [address] 06/03/2019 12:00:00 AM EST eCW1 ([facility]) [facility] Mak [address] [place] [address], [place] [address] 05/25/2019 12:00:00 AM EST eCW1 ([facility]) Outpatient Attender: Missy GU.KRYSTIN-SJPSebastiánKRYSTIN 05/12/2019 12:00:00 AM EST [facility] Mak [address] [place] [address], [place] [address] 03/20/2019 12:00:00 AM EST eCW1 ([facility]) [facility] Mak [address] [place] [address], [place] [address] 03/20/2019 12:00:00 AM EST eCW1 ([facility]) Outpatient 02/23/2019 09:12:00 PM EST [facility] Mak [address] [place] [address], [place] [address] 02/19/2019 12:00:00 AM EST eCW1 ([facility]) [facility] Mak [address] [place] [address], [place] [address] 02/18/2019 12:00:00 AM EST eCW1 ([facility]) Immunizations Vaccine Date Status Description Data Source(s) INFLUENZA VACCINE QUADRIVALENT (65 YR UP)/MF59 C.1/PF 02/23/2020 12:00:00 AM EST completed [facility] Medications Medication Brand Name Start Date Product Form Dose Route Admi nistrative Instructions Pharmacy Instructions Status Indications Reaction Description Data Source(s) Methylprednisolone 4 MG Oral Tablet Methylprednisolone 04/01 12:00:00 AM EST ORAL active MEDENT ([facility]) tizanidine 4 MG Oral Tablet Tizanidine HCL 04/17/2020 12:00:00 AM EST ORAL active MEDENT ([facility]) 4 mg 04/17/2020 12:00:00 AM EST tablet 21 TAE 6 TABLETS BY MOUTH TODAY THEN 5 TABLETS ON DAY 2 THEN 4 TABLETS ON DAY 3 THEN 3 TABLETS ON DAY 4 THEN 2 TABLETS ON DAY 5 THEN 1 TABLET ON DAY 6 TAE 6 TABLETS BY MOUTH TODAY THEN 5 TABLETS ON DAY 2 THEN 4 TABLETS ON DAY 3 THEN 3 TABLETS ON DAY 4 THEN 2 TABLETS ON DAY 5 THEN 1 TABLET ON DAY 6 SOLD: 04/17/2020 [facility] tizanidine 4 MG Oral Tablet TIZANIDINE HCL 04/17/2020 12:00:00 AM EST tablet 14 TAKE 1 TABLET BY MOUTH EVERY 8 HOURS NEEDED TAKE 1 TABLET BY MOUTH EVERY 8 HOURS NEEDED SOLD: 04/17/2020 [facility] 100 mg 04/15/2020 12:00:00 AM EST capsule 10 TAKE ONE CAPSULE BY MOUTH TWICE A DAY WITH FOOD FOR 5 DAYS TAKE ONE CAPSULE BY MOUTH TWICE A DAY WI TH FOOD FOR 5 DAYS SOLD: 04/15/2020 [facility] NITROFURANTOIN, MACROCRYSTALS 25 MG / Ni trofurantoin, Monohydrate 75 MG Oral Capsule [Macrobid] Macrobid 04/15/2020 12:00:00 AM EST ORAL active MEDENT ([facility]) 100 mg 04/13/2020 12:00:00 AM EST tablet 180 TAKE ONE TABLET BY MOUTH TWICE A DAY TAKE ONE TABLET BY MOUTH TWICE A DAY SOLD: 04/15/2020 [facility] 20 mg 04/07/2020 12:00:00 AM EST tablet 90 TAKE ONE TABLET BY MOUTH EVERY DAY TAKE ONE TABLET BY MOUTH EVERY DAY SOLD: 04/10/2020 [facility] Amoxicillin 875 MG Oral Tablet Amoxicillin 875 MG 02/17/2020 12:00: 00 AM EST 1.0 {tablet} active Amoxicillin 875 MG eCW1 ([facility]) 875 mg 02/17/2020 12:00:00 AM EST tablet 10 TAKE ONE TABLET BY MOUTH EVERY 12 HOURS FOR 5 DAYS TAKE ONE TABLET BY MOUTH EVERY 12 HOURS FOR 5 DAYS FAUSTO [facility] Amoxicillin 875 MG Oral Tablet Amoxicillin 875 MG 02/17/2020 12:00: 00 AM EST 1.0 {tablet} active Amoxicillin 875 MG eCW1 ([facility]) 100 mg 02/15/2020 12:00:00 AM EST capsule 10 TAKE ONE CAPSULE BY MOUTH TWICE A DAY TAKE ONE CAPSULE BY MOUTH TWICE A DAY SOLD: 02/15/2020 [facility] NITROFURANTOIN, MACROCRYSTALS 25 MG / Ni trofurantoin, Monohydrate 75 MG Oral Capsule [Macrobid] Macrobid 100 MG Macrobid 100 MG 02/15/2020 12:00:00 AM EST active Macrobid 100 MG eCW1 ([facility]) NITROFURANTOIN, MACROCRYSTALS 25 MG / Ni trofurantoin, Monohydrate 75 MG Oral Capsule [Macrobid] Macrobid 100 MG Macrobid 100 MG 02/15/2020 12:00:00 AM EST active Macrobid 100 MG eCW1 ([facility]) 875-125 mg 01/14/2020 12:00:00 AM EDT tablet 14 TAKE 1 TABLET BY MOUTH EVERY 12 HOURS FOR 7 DAYS TAKE 1 TABLET BY MOUTH EVERY 12 HOURS FOR 7 DAYS SOLD: 01/14/2020 [facility] Amoxicillin 875 MG / Clavulanate 125 MG Oral Tablet Amoxicillin-Pot Clavulanate 875-125 MG Amoxicillin-Pot Clavulanate 875-125 MG 01/14/2020 12:00:00 AM ED T 1.0 {tablet} active Amoxicillin-Pot Cla vulanate 875-125 MG eCW1 ([facility]) Amoxicillin 875 MG / Clavulanate 125 MG Oral Tablet Amoxicillin-Pot Clavulanate 875-125 MG Amoxicillin-Pot Clavulanate 875-125 MG 01/14/2020 12:00:00 AM ED T 1.0 {tablet} active Amoxicillin-Pot Cla vulanate 875-125 MG eCW1 ([facility]) Amoxicillin 875 MG / Clavulanate 125 MG Oral Tablet Amoxicillin-Pot Clavulanate 875-125 MG Amoxicillin-Pot Clavulanate 875-125 MG 01/14/2020 12:00:00 AM ED T 1.0 {tablet} suspended Amoxicillin-Pot C lavulanate 875-125 MG eCW1 ([facility]) Amoxicillin 875 MG / Clavulanate 125 MG Oral Tablet Amoxicillin-Pot Clavulanate 875-125 MG Amoxicillin-Pot Clavulanate 875-125 MG 01/14/2020 12:00:00 AM ED T 1.0 {tablet} suspended Amoxicillin-Pot C lavulanate 875-125 MG eCW1 ([facility]) 300 mg 12/15/2019 12:00:00 AM EDT capsule 90 TAKE ONE CAPSULE BY MOUTH THREE TIMES A DAY TAKE ONE CAPSULE BY MOUTH THREE TIMES A DAY SOLD: 03/22/2020 [facility] 300 mg 12/15/2019 12:00:00 AM EDT capsule 90 TAKE ONE CAPSULE BY MOUTH THREE TIMES A DAY TAKE ONE CAPSULE BY MOUTH THREE TIMES A DAY SOLD: 02/23/2020 [facility] 300 mg 12/15/2019 12:00:00 AM EDT capsule 90 TAKE ONE CAPSULE BY MOUTH THREE TIMES A DAY TAKE ONE CAPSULE BY MOUTH THREE TIMES A DAY SOLD: 12/19/2019 [facility] 300 mg 12/15/2019 12:00:00 AM EDT capsule 90 TAKE ONE CAPSULE BY MOUTH THREE TIMES A DAY TAKE ONE CAPSULE BY MOUTH THREE TIMES A DAY SOLD: 01/22/2020 [facility] 4 mg 11/27/2019 12:00:00 AM EDT tablet 30 TAKE ONE TABLET BY MOUTH EVERY DAY NEEDED TAKE ONE TABLET BY MOUTH EVERY DAY NEEDED SOLD: 12/30/2019 [facility] 4 mg 11/27/2019 12:00:00 AM EDT tablet 30 TAKE ONE TABLET BY MOUTH EVERY DAY NEEDED TAKE ONE TABLET BY MOUTH EVERY DAY NEEDED SOLD: 03/02/2020 [facility] 4 mg 11/27/2019 12:00:00 AM EDT tablet 30 TAKE ONE TABLET BY MOUTH EVERY DAY NEEDED TAKE ONE TABLET BY MOUTH EVERY DAY NEEDED SOLD: 12/01/2019 [facility] 4 mg 11/27/2019 12:00:00 AM EDT tablet 30 TAKE ONE TABLET BY MOUTH EVERY DAY NEEDED TAKE ONE TABLET BY MOUTH EVERY DAY NEEDED SOLD: 03/31/2020 [facility] 4 mg 11/27/2019 12:00:00 AM EDT tablet 30 TAKE ONE TABLET BY MOUTH EVERY DAY NEEDED TAKE ONE TABLET BY MOUTH EVERY DAY NEEDED SOLD: 01/31/2020 [facility] 25 mg 11/05/2019 12:00:00 AM EDT tablet extended release 24 hr 30 TAKE ONE TABLET BY MOUTH EVERY DAY TAKE ONE TABLET BY MOUTH EVERY DAY SOLD: 04/12/2020 [facility] 25 mg 11/05/2019 12:00:00 AM EDT tablet extended release 24 hr 30 TAKE ONE TABLET BY MOUTH EVERY DAY TAKE ONE TABLET BY MOUTH EVERY DAY SOLD: 12/12/2019 [facility] 25 mg 11/05/2019 12:00:00 AM EDT tablet extended release 24 hr 30 TAKE ONE TABLET BY MOUTH EVERY DAY TAKE ONE TABLET BY MOUTH EVERY DAY SOLD: 11/07/2019 [facility] 25 mg 11/05/2019 12:00:00 AM EDT tablet extended release 24 hr 30 TAKE ONE TABLET BY MOUTH EVERY DAY TAKE ONE TABLET BY MOUTH EVERY DAY SOLD: 01/14/2020 [facility] 25 mg 11/05/2019 12:00:00 AM EDT tablet extended release 24 hr 30 TAKE ONE TABLET BY MOUTH EVERY DAY TAKE ONE TABLET BY MOUTH EVERY DAY SOLD: 02/14/2020 [facility] 25 mg 11/05/2019 12:00:00 AM EDT tablet extended release 24 hr 30 TAKE ONE TABLET BY MOUTH EVERY DAY TAKE ONE TABLET BY MOUTH EVERY DAY SOLD: 03/14/2020 [facility] 50 mcg/actuation 10/22/2019 12:00:00 AM EDT spray,suspension 16 SPRAY ONE SPRAY IN EACH NOSTRIL EVERY DAY SPRAY ONE SPRAY IN EACH NOSTRIL EVERY DAY SOLD: 12/22/2019 [facility] 50 mcg/actuation 10/22/2019 12:00:00 AM EDT spray,suspension 16 SPRAY ONE SPRAY IN EACH NOSTRIL EVERY DAY SPRAY ONE SPRAY IN EACH NOSTRIL EVERY DAY SOLD: 10/23/2019 [facility] 50 mcg/actuation 10/22/2019 12:00:00 AM EDT spray,suspension 16 SPRAY ONE SPRAY IN EACH NOSTRIL EVERY DAY SPRAY ONE SPRAY IN EACH NOSTRIL EVERY DAY SOLD: 02/23/2020 [facility] 40 mg 10/19/2019 12:00:00 AM EDT capsule,delayed release (DR/EC) 180 TAKE ONE CAPSULE BY MOUTH TWICE A DAY TAKE ONE CAPSULE BY MOUTH TWICE A DAY SOLD: 10/20/2019 [facility] 40 mg 10/19/2019 12:00:00 AM EDT capsule,delayed release (DR/EC) 180 TAKE ONE CAPSULE BY MOUTH TWICE A DAY TAKE ONE CAPSULE BY MOUTH TWICE A DAY SOLD: 01/22/2020 [facility] 300 mg 10/14/2019 12:00:00 AM EDT capsule 90 TAKE ONE CAPSULE BY MOUTH THREE TIMES A DAY TAKE ONE CAPSULE BY MOUTH THREE TIMES A DAY SOLD: 10/14/2019 [facility] 300 mg 10/14/2019 12:00:00 AM EDT capsule 90 TAKE ONE CAPSULE BY MOUTH THREE TIMES A DAY TAKE ONE CAPSULE BY MOUTH THREE TIMES A DAY SOLD: 11/15/2019 [facility] 100 mg 10/13/2019 12:00:00 AM EDT tablet 180 TAKE ONE TABLET BY MOUTH TWICE A DAY TAKE ONE TABLET BY MOUTH TWICE A DAY SOLD: 10/14/2019 [facility] 100 mg 10/13/2019 12:00:00 AM EDT tablet 180 TAKE ONE TABLET BY MOUTH TWICE A DAY TAKE ONE TABLET BY MOUTH TWICE A DAY SOLD: 01/14/2020 [facility] 20 mg 10/05/2019 12:00:00 AM EDT tablet 90 TAKE ONE TABLET BY MOUTH EVERY DAY TAKE ONE TABLET BY MOUTH EVERY DAY SOLD: 10/07/2019 [facility] 20 mg 10/05/2019 12:00:00 AM EDT tablet 90 TAKE ONE TABLET BY MOUTH EVERY DAY TAKE ONE TABLET BY MOUTH EVERY DAY SOLD: 01/06/2020 [facility] 4 mg 09/23/2019 12:00:00 AM EDT tablet 30 TAKE ONE TABLET BY MOUTH EVERY DAY NEEDED TAKE ONE TABLET BY MOUTH EVERY DAY NEEDED SOLD: 10/20/2019 [facility] 4 mg 09/23/2019 12:00:00 AM EDT tablet 30 TAKE ONE TABLET BY MOUTH EVERY DAY NEEDED TAKE ONE TABLET BY MOUTH EVERY DAY NEEDED SOLD: 09/23/2019 [facility] Cephalexin 500 MG Oral Tablet Cephalexin 09/17/2019 12:00:00 AM EDT ORAL active MEDENT ([facility]) Cephalexin 500 MG Oral Capsule CEPHALEXIN 09/17/2019 12:00:00 AM EDT capsule 14 TAKE 1 CAPSULE BY MOUTH EVERY 12 HOURS FOR 7 DAYS TAKE 1 CAPSULE BY MOUTH EVERY 12 HOURS FOR 7 DAYS SOLD: 09/17/2019 [facility] 300 mg 08/13/2019 12:00:00 AM EDT capsule 90 TAKE ONE CAPSULE BY MOUTH THREE TIMES A DAY TAKE ONE CAPSULE BY MOUTH THREE TIMES A DAY SOLD: 09/17/2019 [facility] 300 mg 08/13/2019 12:00:00 AM EDT capsule 90 TAKE ONE CAPSULE BY MOUTH THREE TIMES A DAY TAKE ONE CAPSULE BY MOUTH THREE TIMES A DAY SOLD: 08/14/2019 [facility] 4 mg 07/27/2019 12:00:00 AM EDT tablet 30 TAKE ONE TABLET BY MOUTH EVERY DAY NEEDED TAKE ONE TABLET BY MOUTH EVERY DAY NEEDED SOLD: 08/26/2019 [facility] 4 mg 07/27/2019 12:00:00 AM EDT tablet 30 TAKE ONE TABLET BY MOUTH EVERY DAY NEEDED TAKE ONE TABLET BY MOUTH EVERY DAY NEEDED SOLD: 07/28/2019 [facility] 25 mg 07/09/2019 12:00:00 AM EDT tablet extended release 24 hr 30 TAKE ONE TABLET BY MOUTH EVERY DAY TAKE ONE TABLET BY MOUTH EVERY DAY SOLD: 08/07/2019 [facility] 25 mg 07/09/2019 12:00:00 AM EDT tablet extended release 24 hr 30 TAKE ONE TABLET BY MOUTH EVERY DAY TAKE ONE TABLET BY MOUTH EVERY DAY SOLD: 07/11/2019 [facility] 25 mg 07/09/2019 12:00:00 AM EDT tablet extended release 24 hr 30 TAKE ONE TABLET BY MOUTH EVERY DAY TAKE ONE TABLET BY MOUTH EVERY DAY SOLD: 09/07/2019 [facility] 25 mg 07/09/2019 12:00:00 AM EDT tablet extended release 24 hr 30 TAKE ONE TABLET BY MOUTH EVERY DAY TAKE ONE TABLET BY MOUTH EVERY DAY SOLD: 10/07/2019 [facility] doxycycline hyclate 100 MG Oral Tablet Doxycycline Hyclate 0 06/19/2019 12:00:00 AM EDT ORAL completed MEDENT ([facility]) Prednisone 20 MG Oral Tablet Prednisone 06/19/2019 12:00:00 AM EDT completed MEDENT ([facility]) 20 mg 06/19/2019 12:00:00 AM EDT tablet 15 TAKE ONE TABLET BY MOUTH THREE TIMES A DAY FOR 5 DAYS TAKE ONE TABLET BY MOUTH THREE TIMES A DAY FOR 5 DAYS SOLD: 06/19/2019 [facility] 100 mg 06/19/2019 12:00:00 AM EDT tablet 14 STARTING SATURDAY, IF NEEDED, TAKE 1 TABLET BY MOUTH TWO TIMES A DAY WITH FOOD FOR 7 DAYS STARTING SATURDAY, IF NEEDED, TAKE 1 TABLET BY MOUTH TWO TIMES A DAY WITH FOOD FOR 7 DAYS SOLD: 06/19/2019 [facility] 90 mcg/actuation 06/18/2019 12:00:00 AM EDT HFA aerosol inha ler 8 INHALE TWO PUFFS BY MOUTH EVERY 4 HOURS FOR WHEEZING INHALE TWO PUFFS BY MOUTH EVERY 4 HOURS FOR WHEEZING SOLD: 06/19/2019 [facility] 300 mg 06/15/2019 12:00:00 AM EDT capsule 90 TAKE ONE CAPSULE BY MOUTH THREE TIMES A DAY TAKE ONE CAPSULE BY MOUTH THREE TIMES A DAY SOLD: 06/17/2019 [facility] 300 mg 06/15/2019 12:00:00 AM EDT capsule 90 TAKE ONE CAPSULE BY MOUTH THREE TIMES A DAY TAKE ONE CAPSULE BY MOUTH THREE TIMES A DAY SOLD: 07/14/2019 [facility] Cholestyramine Resin 66.7 MG/ML Oral Suspension Choles tyramine 4 GM Cholestyramine 4 GM 06/03/2019 12:00:00 AM EST active 1/2 packet mixed with water or non-carbonated drink eCW1 ([facility]) Cholestyramine Resin 66.7 MG/ML Oral Suspension Choles tyramine 4 GM Cholestyramine 4 GM 06/03/2019 12:00:00 AM EST suspended 1/2 packet mixed with water or non-carbonated drink eCW1 ([facility]) 4 gram 06/03/2019 12:00:00 AM EST powder in packet 15 USE 1/2 PACKET MIXED WITH WATER OR NON-CARBONATED DRINK BY MOUTH ONCE DAILY USE 1/2 PACKET MIXED WITH WATER OR NON-CARBONATED DRINK BY MOUTH ONCE DAILY SOLD: 06/04/2019 [facility] Cholestyramine Resin 66.7 MG/ML Oral Suspension Choles tyramine 4 GM Cholestyramine 4 GM 06/03/2019 12:00:00 AM EST suspended 1/2 packet mixed with water or non-carbonated drink eCW1 ([facility]) 40 mg 05/05/2019 12:00:00 AM EST capsule,delayed release (DR/EC) 180 TAKE ONE CAPSULE BY MOUTH TWICE A DAY TAKE ONE CAPSULE BY MOUTH TWICE A DAY SOLD: 05/06/2019 [facility] 40 mg 05/05/2019 12:00:00 AM EST capsule,delayed release (DR/EC) 180 TAKE ONE CAPSULE BY MOUTH TWICE A DAY TAKE ONE CAPSULE BY MOUTH TWICE A DAY SOLD: 08/01/2019 [facility] 50 mcg/actuation 04/21/2019 12:00:00 AM EST spray,suspension 16 SPRAY ONE SPRAY IN EACH NOSTRIL EVERY DAY SPRAY ONE SPRAY IN EACH NOSTRIL EVERY DAY SOLD: 06/26/2019 [facility] 50 mcg/actuation 04/21/2019 12:00:00 AM EST spray,suspension 16 SPRAY ONE SPRAY IN EACH NOSTRIL EVERY DAY SPRAY ONE SPRAY IN EACH NOSTRIL EVERY DAY SOLD: 08/26/2019 [facility] 50 mcg/actuation 04/21/2019 12:00:00 AM EST spray,suspension 16 SPRAY ONE SPRAY IN EACH NOSTRIL EVERY DAY SPRAY ONE SPRAY IN EACH NOSTRIL EVERY DAY SOLD: 04/28/2019 [facility] 100 mg 04/17/2019 12:00:00 AM EST tablet 180 TAKE ONE TABLET BY MOUTH TWICE A DAY TAKE ONE TABLET BY MOUTH TWICE A DAY SOLD: 04/20/2019 [facility] 100 mg 04/17/2019 12:00:00 AM EST tablet 180 TAKE ONE TABLET BY MOUTH TWICE A DAY TAKE ONE TABLET BY MOUTH TWICE A DAY SOLD: 07/18/2019 [facility] 25 mg 03/04/2019 12:00:00 AM EST tablet extended release 24 hr 30 TAKE ONE TABLET BY MOUTH EVERY DAY TAKE ONE TABLET BY MOUTH EVERY DAY SOLD: 04/10/2019 [facility] 25 mg 03/04/2019 12:00:00 AM EST tablet extended release 24 hr 30 TAKE ONE TABLET BY MOUTH EVERY DAY TAKE ONE TABLET BY MOUTH EVERY DAY SOLD: 05/14/2019 [facility] 25 mg 03/04/2019 12:00:00 AM EST tablet extended release 24 hr 30 TAKE ONE TABLET BY MOUTH EVERY DAY TAKE ONE TABLET BY MOUTH EVERY DAY SOLD: 06/13/2019 [facility] 25 mg 03/04/2019 12:00:00 AM EST tablet extended release 24 hr 30 TAKE ONE TABLET BY MOUTH EVERY DAY TAKE ONE TABLET BY MOUTH EVERY DAY SOLD: 03/05/2019 [facility] NITROFURANTOIN, MACROCRYSTALS 25 MG / Ni trofurantoin, Monohydrate 75 MG Oral Capsule [Macrobid] Macrobid 100 MG Macrobid 100 MG 02/18/2019 12:00:00 AM EST suspended 1 capsule at bedtime w ith food eCW1 ([facility]) 100 mg 02/18/2019 12:00:00 AM EST capsule 10 TAKE 1 CAPSULE BY MOUTH TWO TIMES A DAY WITH FOOD TAKE 1 CAPSULE BY MOUTH TWO TIMES A DAY WITH FOOD SOLD : 02/18/2019 [facility] NITROFURANTOIN, MACROCRYSTALS 25 MG / Ni trofurantoin, Monohydrate 75 MG Oral Capsule [Macrobid] Macrobid 100 MG Macrobid 100 MG 02/18/2019 12:00:00 AM EST active 1 capsule at bedtime wit h food eCW1 ([facility]) Acetaminophen 325 MG / Hydrocodone Bitartrate 5 MG Oral Tabl et [Dickey] Dickey 02/16/2019 12:00:00 AM EST ORAL completed MEDENT ([facility], ) 50 mcg/actuation 01/22/2019 12:00:00 AM EDT spray,suspension 16 SPRAY 1 SPRAY IN EACH NOSTRIL ONCE DAILY SPRAY 1 SPRAY IN EACH NOSTRIL ONCE DAILY SOLD: 03/26/2019 [facility] 50 mcg/actuation 01/22/2019 12:00:00 AM EDT spray,suspension 16 SPRAY 1 SPRAY IN EACH NOSTRIL ONCE DAILY SPRAY 1 SPRAY IN EACH NOSTRIL ONCE DAILY SOLD: 02/24/2019 [facility] 20 mg 01/08/2019 12:00:00 AM EDT tablet 90 TAKE ONE TABLET BY MOUTH EVERY DAY TAKE ONE TABLET BY MOUTH EVERY DAY SOLD: 07/09/2019 [facility] 20 mg 01/08/2019 12:00:00 AM EDT tablet 90 TAKE ONE TABLET BY MOUTH EVERY DAY TAKE ONE TABLET BY MOUTH EVERY DAY SOLD: 04/10/2019 [facility] 100 mg 04/30/2018 12:00:00 AM EST tablet 60 TAKE ONE TABLET BY MOUTH TWICE A DAY TAKE ONE TABLET BY MOUTH TWICE A DAY SOLD: 02/18/2019 [facility] 100 mg 04/30/2018 12:00:00 AM EST tablet 60 TAKE ONE TABLET BY MOUTH TWICE A DAY TAKE ONE TABLET BY MOUTH TWICE A DAY SOLD: 03/19/2019 [facility] Insurance Providers Payer name Policy type / Coverage type Policy ID Covered libertarian ID Covered libertarian's relationship to erickson Policy Erickson Plan Information [facility] COMMUNITY PLAN [facility] [id number] RUSTY [id number] EMEDNY [id number] SP [id number] [facility] [id number] SP [id number] [facility] O [id number] S [id number] MEDICAID M [id number] MEDICAID [id number] SP [id number] [facility] MCRO [id number] SP [id number] MEDICAID [id number] Jamila [id number] [facility] MEDICARE [id number] Jamila [id number] MEDICARE [id number] SP [id number] MEDICAID [id number] SP [id number] [facility] MEDICAID [id number] Jamila [id number] [facility] COMMUNITY PLAN [facility] [id number] SP [id number] [facility] [id number] SP [id number] [facility] (HMO) [id number] Self [id number] Medicare [place] Medicare Primary [id number] Self [id number] Medicaid [place] [id number] Self [id number] ANSI-Commercial [id number] MAULIK [id number] SP [id number] [facility] Maintenance Organization (HMO) [id number] Self [id number] MAULIK MEDICAID [id number] Jamila 7 [id number] ANSI-Commercial [id number] ANSI-Commercial [id number] ANSI-Commercial [id number] ANSI-Commercial [id number] ANSI-Commercial [id number] MAULIK CARE ME O [id number] S [id number] Maulik Medicaid/CHP/FHP Commercial [id number] Self [id number] [place]/CHP/FHP Commercial [id number] Self [id number] Maulik Medicaid/CHP/FHP Commercial [id number] Self [id number] [place] Medicaid/CHP/FHP Commercial [id number] Self [id number] MAULIK [id number] SP [id number] MAULIK CARE ME O [id number] S [id number] MAULIK [id number] SP [id number] [place] [facility] [place] Medicaid [id number] Self [id number] SELF PAY ONLY SP1 SP SP1 D Managed Care Maulik P [id number] S [id number] [facility] MEDICAID [id number] Jamila [id number] MAULIK [id number] SP [id number] MEDICAID [facility] [id number] SP BU [id number] SELF PAY UNAVAILABLE SP UNAVAILA BLE ESIS WC [id number] SP [id number] [facility] MEDICAID [id number] Jamila [id number] WC-PENDING [id number] SP [id number] SELF PAY 2 UNAVAILABLE 1 UNAVAILA BLE SELPAY 2 [id number] 1 [id number] [facility] 2 [id number] 1 [id number] [facility] INSURANCE 2 [id number] 1 [id number] [facility] 2 [id number] 2 [id number] EXC PLANS 1 [id number] MEDICAID [facility] 3 [id number] [facility] [id number] SP [id number] Problems, Conditions, and Diagnoses Code Display Name Description Problem Type Effective Dates Data Source(s) I10 [id number] Essential hypertension Problem 10/19/2019 12 :00:00 AM EDT eCW1 ([facility]) D22.5 [id number] Melanocytic nevi of trunk Problem 09/02/2019 12:00:00 AM EDT eCW1 ([facility]) D22.61 [id number] Melanocytic nevi of right upper limb, including shoulder Problem 09/02/2019 12:00:00 AM EDT eCW1 ([facility]) D22.62 [id number] Melanocytic nevi of left upper l imb, including shoulder Problem 09/02/2019 12:00:00 AM EDT eCW1 ([facility]) L82.1 [id number] SK (seborrheic keratosis) Problem 09/02/2019 12:00:00 AM EDT eCW1 ([facility]) L81.4 [id number] Lentigines Problem 09/02/2019 12:00:00 AM ED T eCW1 ([facility]) Z85.828 [id number] History of nonmelanoma skin cancer Proble m 09/02/2019 12:00:00 AM EDT eCW1 ([facility]) D22.4 [id number] Nevus of head Problem 09/02/2019 12:00:00 AM EDT eCW1 ([facility]) Z90.49 592755311 History of cholecystectomy Problem 0 12:00:00 AM EST eCW1 ([facility]) R91.1 031746130 Pulmonary nodule Problem 06/03/2019 12:00:00 AM EST eCW1 ([facility]) R91.1 368094171 Pulmonary nodule Problem 06/03/2019 12:00:00 AM EST eCW1 ([facility]) Z90.49 [id number] History of cholecystectomy Problem 0 12:00:00 AM EST eCW1 ([facility]) K80.20 [id number] Calculus of gallblad ricardo without cholecystitis without obstruction Problem 02/18/2019 12:00:00 AM EST eCW1 ([facility]) K80.20 43826201 Calculus of gallblad ricardo without cholecystitis without obstruction Problem 02/18/2019 12:00:00 AM EST eCW1 ([facility]) Surgeries/Procedures Procedure Description Date Indications Data Source(s) Suture Removal 10/22/2019 12:00:00 AM EDT eCW1 ([facility]) Transitional Care NO CHARGE Visit 08/04/2019 12:00:00 AM EDT eCW1 ([facility]) PHYSICIAN TELEPHONE EVALUATION 11-20 MIN 07/30/2019 12 :00:00 AM EDT eCW1 ([facility]) Office Visit, Est Pt., Level 2 FC 06/03/2019 12:00:00 AM EST eCW1 ([facility]) Office Visit, Est Pt., Level 3 PC 06/03/2019 12:00:00 AM EST eCW1 ([facility]) Laparoscopy,Surgical;Cholecystectomy 02/20/2019 12:00: 00 AM EST MEDENT ([facility], ) URINE-NO MICRO 02/18/2019 12:00:00 AM EST eCW1 ([facility]) Results ID Date Data Source [id number] 04/15/2020 12:15:00 PM EST MEDENT ([facility]) Name Value Range Interpretation Code Description Data Felecia rce(s) Supporting Document(s) Bacteria identified in Urine by Culture Laboratory test result MEDENT ([facility], [facility]) FULL REPORT IN LAB NOTES (eCW and [facility] ). SPECIMEN APPEARS CONTAMINATED ID Date Data Source ADM SPINE CERVICAL COMPLETE 01/14/2020 05:54:44 AM EDT eCW1 ([facility]) Name Value Range Interpretation Code Description Data Felecia rce(s) Supporting Document(s) ADM SPINE CERVICAL COMPLETE eC W1 ([facility]) ID Date Data Source Comprehensive Metabolic Profile (CMP) 01/07/2020 10:09:11 AM EDT eCW1 ([facility]) Name Value Range Interpretation Code Description Data Felecia rce(s) Supporting Document(s) 19 BLOOD UREA NITROGEN eCW1 ([facility]) 86 GLUCOSE, FASTING eCW1 ([facility]) 0.85 CREATININE FOR GFR eCW1 ([facility]) 140 SODIUM LEVEL eCW1 ([facility]) > 60.0 GLOMERULAR FILTRATION RATE eCW 1 ([facility]) 4.2 POTASSIUM SERUM eCW1 ([facility]) 9.2 CALCIUM LEVEL eCW1 ([facility]) 14 AST/SGOT eCW1 ([facility]) 105 CHLORIDE LEVEL eCW1 ([facility]) 27 CARBON DIOXIDE LEVEL eCW1 ([facility]) 23 ALT/SGPT eCW1 ([facility]) 85 ALKALINE PHOSPHATASE eCW1 ([facility]) 7.5 TOTAL PROTEIN eCW1 ([facility]) 0.3 BILIRUBIN,TOTAL eCW1 ([facility]) 3.9 ALBUMIN eCW1 ([facility]) 1.1 ALBUMIN/GLOBULIN RATIO eCW1 ([facility]) ID Date Data Source FREE T4 & TSH PANEL 01/07/2020 10:08:17 AM EDT eCW1 ([facility]) Name Value Range Interpretation Code Description Data Felecia rce(s) Supporting Document(s) 2.710 eCW1 ([facility]) 1.04 eCW1 ([facility]) ID Date Data Source [id number] 01/07/2020 10:08:08 AM EDT eCW1 ([facility]) Name Value Range Interpretation Code Description Data Felecia rce(s) Supporting Document(s) Hemoglobin A1c/Hemoglobin.total in Blood 5.2 eCW1 ([facility]) ID Date Data Source Urinalysis, no micro 12/31/2019 02:43:57 AM EDT eCW1 ([facility]) Name Value Range Interpretation Code Description Data Felecia rce(s) Supporting Document(s) eCW1 ([facility]) 5 eCW1 ([facility]) neg eCW1 ([facility]) neg eCW1 ([facility]) neg eCW1 ([facility]) neg eCW1 ([facility]) neg eCW1 ([facility]) neg eCW1 ([facility]) neg eCW1 ([facility]) yes eCW1 ([facility]) neg eCW1 ([facility]) ID Date Data Source [id number] 09/17/2019 02:12:00 PM EDT MEDENT ([facility]) Name Value Range Interpretation Code Description Data Felecia rce(s) Supporting Document(s) Bacteria identified in Urine by Culture Laboratory test result MEDENT ([facility], [facility]) FULL REPORT IN LAB NOTES (eCW and [facility] ). NO GROWTH ID Date Data Source [id number] 02/20/2019 12:58:00 PM EST MEDENT ([facility], ) Name Value Range Interpretation Code Description Data Felecia rce(s) Supporting Document(s) Surgical pathology study Laboratory test result MEDENT ([facility], ) <content>FINAL DIAGNOSIS</content>
<content></content>
<content>Gallbladder, cholecystectomy:</content>
<content>Cholelithiasis and chronic cholecystitis.</content>
<content>02/25/2019 - 1052</content>
<content></content>
<content>CLINICAL DIAGNOSIS</content>
<content></content>
<content>Symptomatic gallstones</content>
<content>02/23/2019 - 1350</content>
<content></content>
<content>GROSS DIAGNOSIS</content>
<content></content>
<content>Received in formalin labeled "gallbladder & contents" is an</content>
<content>approximately 13 x 4 x 3.5 cm. gallbladder. The serosal lining is</content>
<content> congested. The lumen contains viscid bile as well as multiple dark</content>
<content>brown-orange multifaceted stones. The mucosal lining is flat and</content>
<content>fibrotic. The wall is maximally 0.1 cm. in thickness. Squeegee Tender</content>
<content>in one.</content>
<content>-SH</content>
<content>02/23/2019 - 1350</content>
<content></content>
<content>Signed Bernie Sky MD 02/25/2019 1401</content>
<content></content> Procedure Social History Code Duration Value Status Description Data Source(s ) Smoking 03/28/2020 12:00:00 AM EST Former Smoker completed Former Smoker eCW1 ([facility]) Smoking 02/15/2020 12:00:00 AM EST Former Smoker completed Former Smoker eCW1 ([facility]) Smoking 02/15/2020 12:00:00 AM EST Former Smoker completed Former Smoker eCW1 ([facility]) Smoking 01/14/2020 12:00:00 AM EDT Former Smoker completed Former Smoker eCW1 ([facility]) Smoking 01/14/2020 12:00:00 AM EDT Former Smoker completed Former Smoker eCW1 ([facility]) Smoking 12/31/2019 12:00:00 AM EDT Former Smoker completed Former Smoker eCW1 ([facility]) Smoking 12/31/2019 12:00:00 AM EDT Former Smoker completed Former Smoker eCW1 ([facility]) Smoking 09/02/2019 12:00:00 AM EDT Former Smoker completed Former Smoker eCW1 ([facility]) Vital Signs ID Date Data Source UNK Name Value Range Interpretation Code Description Data Source(s) Body mass index (BMI) [Ratio] 32.5 kg/m2 32.5 k g/m2 MEDENT ([facility]) Body height 72 [in_i] 72 [in_i] MEDENT ([facility]) 6'0" Body weight 240.00 [lb_av] 240.00 [lb_av] MEDEN T ([facility]) Body temperature 98.7 [degF] 98.7 [degF] MEDENT ([facility], [facility]) Oxygen saturation in Arterial blood by Pulse oximetry 99 % 99 % MEDENT ([facility], [facility]) Respiratory rate 16 /min 16 /min MEDENT ( [facility], [facility]) Heart rate 78 /min 78 /min MEDENT ([facility], [facility]) Diastolic blood pressure 78 mm[Hg] 78 mm[Hg] MEDENT ([facility], [facility]) Systolic blood pressure 136 mm[Hg] 136 mm[Hg] M EDENT ([facility], [facility]) Diastolic blood pressure 80 mm[Hg] 80 mm[Hg] eCW1 ([facility]) Systolic blood pressure 140 mm[Hg] 140 mm[Hg] e CW1 ([facility]) Body temperature 96.5 [degF] 96.5 [degF] eCW1 ( [facility]) Respiratory rate 18 /min 18 /min eCW1 ([facility]) Heart rate 99 /min 99 /min eCW1 ([facility]) Body mass index (BMI) [Ratio] 36.36 kg/m2 36.36 kg/m2 W1 ([facility]) Body height [in_i] eCW1 ([facility]) Body weight 253.4 [lb_av] 253.4 [lb_av] eCW1 ([facility]) Diastolic blood pressure 86 mm[Hg] 86 mm[Hg] eCW1 ([facility]) Systolic blood pressure 126 mm[Hg] 126 mm[Hg] e CW1 ([facility]) Body temperature 97.3 [degF] 97.3 [degF] eCW1 ( [facility]) Respiratory rate 18 /min 18 /min eCW1 ([facility]) Heart rate 82 /min 82 /min eCW1 ([facility]) Body mass index (BMI) [Ratio] 35.67 kg/m2 35.67 kg/m2 W1 ([facility]) Body height [in_i] eCW1 ([facility]) Body weight 248.6 [lb_av] 248.6 [lb_av] eCW1 ([facility]) Diastolic blood pressure 82 mm[Hg] 82 mm[Hg] eCW1 ([facility]) Systolic blood pressure 124 mm[Hg] 124 mm[Hg] e CW1 ([facility]) Body temperature 96.9 [degF] 96.9 [degF] eCW1 ( [facility]) Respiratory rate 18 /min 18 /min eCW1 ([facility]) Heart rate 79 /min 79 /min eCW1 ([facility]) Body mass index (BMI) [Ratio] 35.32 kg/m2 35.32 kg/m2 eCW1 ([facility]) Body height [in_i] eCW1 ([facility]) Body weight 246.2 [lb_av] 246.2 [lb_av] eCW1 ([facility]) Diastolic blood pressure 78 mm[Hg] 78 mm[Hg] eCW1 ([facility]) Systolic blood pressure 128 mm[Hg] 128 mm[Hg] e CW1 ([facility]) Body temperature 97.8 [degF] 97.8 [degF] eCW1 ( [facility]) Respiratory rate 18 /min 18 /min eCW1 ([facility]) Heart rate 65 /min 65 /min eCW1 ([facility]) Body mass index (BMI) [Ratio] 35.35 kg/m2 35.35 kg/m2 eCW1 ([facility]) Body height [in_i] eCW1 ([facility]) Body weight 246.4 [lb_av] 246.4 [lb_av] eCW1 ([facility]) Body mass index (BMI) [Ratio] 32.5 kg/m2 32.5 k g/m2 MEDENT ([facility], [facility]) Body height 72 [in_i] 72 [in_i] MEDENT ([facility], [facility]) 6'0" Body weight 240.00 [lb_av] 240.00 [lb_av] MEDEN T ([facility], [facility]) Body temperature 98.5 [degF] 98.5 [degF] MEDENT ([facility], [facility]) Oxygen saturation in Arterial blood by Pulse oximetry 98 % 98 % MEDENT ([facility], [facility]) Respiratory rate 18 /min 18 /min MEDENT ( [facility], [facility]) Heart rate 70 /min 70 /min MEDENT ([facility], [facility]) Diastolic blood pressure 80 mm[Hg] 80 mm[Hg] MEDENT ([facility], [facility]) Systolic blood pressure 129 mm[Hg] 129 mm[Hg] M EDENT ([facility]) Diastolic blood pressure 80 mm[Hg] 80 mm[Hg] eCW1 ([facility]) Systolic blood pressure 132 mm[Hg] 132 mm[Hg] e CW1 ([facility]) Body mass index (BMI) [Ratio] 34.46 kg/m2 34.46 kg/m2 eCW1 ([facility]) Body height [in_i] eCW1 ([facility]) Body weight 240.2 [lb_av] 240.2 [lb_av] eCW1 ([facility]) Diastolic blood pressure 83 mm[Hg] 83 mm[Hg] MEDENT ([facility]) Systolic blood pressure 138 mm[Hg] 138 mm[Hg] M EDENT ([facility], ) Body weight 110.792 kg 110.792 kg [facility] ([facility]) Body mass index (BMI) [Ratio] 34.1 kg/m2 34.1 k g/m2 [facility] ([facility], ) Body weight 244.25 [lb_av] 244.25 [lb_av] MEDEN T ([facility], ) Body height 71 [in_i] 71 [in_i] [facility] ([facility]) 5'11" Body mass index (BMI) [Ratio] 32.5 kg/m2 32.5 k g/m2 [facility] ([facility]) Body height 72 [in_i] 72 [in_i] MEDENT ([facility], [facility]) 6'0" Body weight 240.00 [lb_av] 240.00 [lb_av] MEDEN T ([facility], [facility]) Body temperature 98.4 [degF] 98.4 [degF] MEDENT ([facility], [facility]) Oxygen saturation in Arterial blood by Pulse oximetry 97 % 97 % MEDENT ([facility], [facility]) Respiratory rate 16 /min 16 /min MEDENT ( [facility], [facility]) Heart rate 78 /min 78 /min MEDENT ([facility], [facility]) Diastolic blood pressure 86 mm[Hg] 86 mm[Hg] MEDENT ([facility], [facility]) Systolic blood pressure 140 mm[Hg] 140 mm[Hg] M EDENT ([facility], [facility]) Diastolic blood pressure 74 mm[Hg] 74 mm[Hg] eCW1 ([facility]) Systolic blood pressure 126 mm[Hg] 126 mm[Hg] e CW1 ([facility]) Body temperature 96.5 [degF] 96.5 [degF] eCW1 ( [facility]) Respiratory rate 18 /min 18 /min eCW1 ([facility]) Heart rate 68 /min 68 /min eCW1 ([facility]) Body mass index (BMI) [Ratio] 35.47 kg/m2 35.47 kg/m2 W1 ([facility]) Body height [in_us] eCW1 ([facility]) Body weight Measured 247.2 [lb_av] 247.2 [lb_av ] W1 ([facility]) Body weight 110.281 kg 110.281 kg MEDENT ([facility], ) Body mass index (BMI) [Ratio] 33.9 kg/m2 33.9 k g/m2 [facility] [place] ([facility], ) Body weight 243.12 [lb_av] 243.12 [lb_av] MEDEN T ([facility], ) Body height 71 [in_i] 71 [in_i] MEDENT ([facility], ) 5'11" Diastolic blood pressure 88 mm[Hg] 88 mm[Hg] MEDENT ([facility], ) Systolic blood pressure 142 mm[Hg] 142 mm[Hg] M EDENT ([facility], ) Diastolic blood pressure 80 mm[Hg] 80 mm[Hg] eCW1 ([facility]) Systolic blood pressure 128 mm[Hg] 128 mm[Hg] e CW1 ([facility]) Body temperature 97 [degF] 97 [degF] eCW1 ([facility]) Respiratory rate 18 /min 18 /min eCW1 ([facility]) Heart rate 80 /min 80 /min eCW1 ([facility]) Body mass index (BMI) [Ratio] 35.26 kg/m2 35.26 kg/m2 eCW1 ([facility]) Body height [in_us] eCW1 ([facility]) Body weight Measured 245.8 [lb_av] 245.8 [lb_av ] eCW1 ([facility]) Patient Treatment Plan of Care Planned Activity Planned Date Details Description Data Source (s) Amoxicillin 875 MG Oral Tablet 02/17/2020 12:00:00 AM EST eCW1 ([facility]) Amoxicillin 875 MG Oral Tablet 02/17/2020 12:00:00 AM EST eCW1 ([facility]) NITROFURANTOIN, MACROCRYSTALS 25 MG / Ni trofurantoin, Monohydrate 75 MG Oral Capsule [Macrobid] 02/15/2020 12:00:00 AM EST eC W1 ([facility]) NITROFURANTOIN, MACROCRYSTALS 25 MG / Ni trofurantoin, Monohydrate 75 MG Oral Capsule [Macrobid] 02/15/2020 12:00:00 AM EST eC W1 ([facility]) Amoxicillin 875 MG / Clavulanate 125 MG Oral Tablet 01/14/20 12:00:00 AM EDT eCW1 ([facility]) Amoxicillin 875 MG / Clavulanate 125 MG Oral Tablet 01/14/20 12:00:00 AM EDT eCW1 ([facility] [place]) Cholestyramine Resin 66.7 MG/ML Oral Suspension 06/03/2019 12:00:00 AM EST eCW1 ([facility]) NITROFURANTOIN, MACROCRYSTALS 25 MG / Ni trofurantoin, Monohydrate 75 MG Oral Capsule [Macrobid] 02/18/2019 12:00:00 AM EST eC W1 ([facility])
--- OUTSIDE RECORDS SUMMARY | 2020-04-18 12:12 | CCD | Continuity of Care Document ---
Author Author Brenda ZARAGOZA Organization Unknown Address [address] [place] [address] [place] [address] Phone [phone] Care Team Providers Care Supervisor Sewing Department Name Role Phone [facility] AUTM [phone] Problems Description No Information Available Social History [...] H/L Range Note Laboratory test finding 04/15/2020 [facility] [address] [place], [place] [id number] [phone] Urine Culture <pending> Procedures Description No Information [...]
[2020-04-18] MEDS ORDERED: NS 1,000 ML IV ONE (12:45)
--- OUTSIDE RECORDS SUMMARY | 2020-04-18 13:00 | CCD ---
Author Author [facility] Address Unknown Phone Unavailable Support Name Relationship Address Phone Zeyad Campbell Next Of Kin Unknown Unavailable [place] [address] PER, NONE Next Of Kin Unknown Unavailable Minnie Guzman DDS Next Of Kin [address] [place], [place] [id number] RETIRED Next Of Kin Unknown RE Next Of Kin Unknown Unavailable SONJA SCOTT Next Of Kin [address] [place] [address] Minnie Guzman DDS Next Of Kin [address] [place] [address] UE Next Of Kin Unknown Unavailable [place] [address] RET Next Of Kin RETIRED Unknown Unavailable [place]ERNIE [place] [address] CONTACT, NO Next Of Kin Unknown MAXIMS Next Of Kin [address] [place] [address] UN Next Of Kin Unknown Unavailable MICHELLE KERN Next Of Kin [facility] [address] [place] [address] BRAYDON RAMON Next Of Kin UNKNOWN [place], [place] [id number] [facility] Next Of Kin Unknown REUBEN BORREGO Next Of Kin [address] [place] [address] Fernie Campbell ECON [address] [place] [address] Sonja Scott ECON [address] [place] [address] [phone] Edwin Scott ECON Unknown Unavailable Care Team Providers Care Call Center Coordinator Name Role Phone Fons, M Missy RESIDENTIAL CONSTRUCTION INSTRUCTOR Unavailable Unavailable Fons, M Missy RESIDENTIAL CONSTRUCTION INSTRUCTOR Unavailable Unavailable Fons, M Missy RESIDENTIAL CONSTRUCTION INSTRUCTOR Unavailable Unavailable Fons, M Missy RESIDENTIAL CONSTRUCTION INSTRUCTOR Unavailable Unavailable Fons, M Missy RESIDENTIAL CONSTRUCTION INSTRUCTOR Unavailable Unavailable Fons, M Missy RESIDENTIAL CONSTRUCTION INSTRUCTOR Unavailable Unavailable Fons, M Missy RESIDENTIAL CONSTRUCTION INSTRUCTOR Unavailable Unavailable Fons, M Missy RESIDENTIAL CONSTRUCTION INSTRUCTOR Unavailable Unavailable Fons, M Missy RESIDENTIAL CONSTRUCTION INSTRUCTOR Unavailable Unavailable Fons, M Missy RESIDENTIAL CONSTRUCTION INSTRUCTOR Unavailable Unavailable Fons, M Missy RESIDENTIAL CONSTRUCTION INSTRUCTOR Unavailable Unavailable Fons, M Missy RESIDENTIAL CONSTRUCTION INSTRUCTOR Unavailable Unavailable Fons, M Missy RESIDENTIAL CONSTRUCTION INSTRUCTOR Unavailable Unavailable Fons, M Missy RESIDENTIAL CONSTRUCTION INSTRUCTOR Unavailable Unavailable Fons, M Missy RESIDENTIAL CONSTRUCTION INSTRUCTOR Unavailable Unavailable Fons, M Missy RESIDENTIAL CONSTRUCTION INSTRUCTOR Unavailable Unavailable Fons, M Missy RESIDENTIAL CONSTRUCTION INSTRUCTOR Unavailable Unavailable Fons, M Missy RESIDENTIAL CONSTRUCTION INSTRUCTOR Unavailable Unavailable Fons, M Missy RESIDENTIAL CONSTRUCTION INSTRUCTOR Unavailable Unavailable Fons, M Missy RESIDENTIAL CONSTRUCTION INSTRUCTOR Unavailable Unavailable Fons, M Missy RESIDENTIAL CONSTRUCTION INSTRUCTOR Unavailable Unavailable Fons, M Missy RESIDENTIAL CONSTRUCTION INSTRUCTOR Unavailable Unavailable Fons, M Missy RESIDENTIAL CONSTRUCTION INSTRUCTOR Unavailable Unavailable Fons, M Missy RESIDENTIAL CONSTRUCTION INSTRUCTOR Unavailable Unavailable Fons, M Missy RESIDENTIAL CONSTRUCTION INSTRUCTOR Unavailable Unavailable Fons, M Missy RESIDENTIAL CONSTRUCTION INSTRUCTOR Unavailable Unavailable Fons, M Missy RESIDENTIAL CONSTRUCTION INSTRUCTOR Unavailable Unavailable Fons, M Missy RESIDENTIAL CONSTRUCTION INSTRUCTOR Unavailable Unavailable Fons, M Missy RESIDENTIAL CONSTRUCTION INSTRUCTOR Unavailable Unavailable Fons, M Missy RESIDENTIAL CONSTRUCTION INSTRUCTOR Unavailable Unavailable Fons, M Missy RESIDENTIAL CONSTRUCTION INSTRUCTOR Unavailable Unavailable Fons, M Missy RESIDENTIAL CONSTRUCTION INSTRUCTOR Unavailable Unavailable Fons, M Missy RESIDENTIAL CONSTRUCTION INSTRUCTOR Unavailable Unavailable Fons, M Missy RESIDENTIAL CONSTRUCTION INSTRUCTOR Unavailable Unavailable Fons, M Missy RESIDENTIAL CONSTRUCTION INSTRUCTOR Unavailable Unavailable Fons, M Missy RESIDENTIAL CONSTRUCTION INSTRUCTOR Unavailable Unavailable Fons, M Missy RESIDENTIAL CONSTRUCTION INSTRUCTOR Unavailable Unavailable Fons, M Missy RESIDENTIAL CONSTRUCTION INSTRUCTOR Unavailable Unavailable Fons, M Missy RESIDENTIAL CONSTRUCTION INSTRUCTOR Unavailable Unavailable Fons, M Missy RESIDENTIAL CONSTRUCTION INSTRUCTOR Unavailable Unavailable Fons, M Missy RESIDENTIAL CONSTRUCTION INSTRUCTOR Unavailable Unavailable Fons, M Missy RESIDENTIAL CONSTRUCTION INSTRUCTOR Unavailable Unavailable Fons, M Missy RESIDENTIAL CONSTRUCTION INSTRUCTOR Unavailable Unavailable Fons, M Missy RESIDENTIAL CONSTRUCTION INSTRUCTOR Unavailable Unavailable Fons, M Missy RESIDENTIAL CONSTRUCTION INSTRUCTOR Unavailable Unavailable Fons, M Missy RESIDENTIAL CONSTRUCTION INSTRUCTOR Unavailable Unavailable Fons, M Missy RESIDENTIAL CONSTRUCTION INSTRUCTOR Unavailable Unavailable Fons, M Missy RESIDENTIAL CONSTRUCTION INSTRUCTOR Unavailable Unavailable Fons, M Missy RESIDENTIAL CONSTRUCTION INSTRUCTOR Unavailable Unavailable Fons, M Missy RESIDENTIAL CONSTRUCTION INSTRUCTOR Unavailable Unavailable Fons, M Missy RESIDENTIAL CONSTRUCTION INSTRUCTOR Unavailable Unavailable Fons, M Missy RESIDENTIAL CONSTRUCTION INSTRUCTOR Unavailable Unavailable Fons, M Missy RESIDENTIAL CONSTRUCTION INSTRUCTOR Unavailable Unavailable Fons, M Missy RESIDENTIAL CONSTRUCTION INSTRUCTOR Unavailable Unavailable RING, K WILLIAN PA Unavailable [...] is protected by Article 27-F of the [facility] Public Health law. If you continue you may have access to information: Regarding HIV / AIDS; Provided by facilities licensed or operated by the [facility] Office of Mental Health; or Provided by the [facility] Office for People With Developmental Disabilities. If such information is present, then the following [facility] mandated warning applies: This information has [...] law may result in a fine or half-way sentence or both. A general authorization for the release of medical or other information is NOT sufficient authorization for further disc losure. Allergies and Adverse Reactions Type Description Substance Reaction Status Data Source(s ) Sulfa (for allergy use only) Sulfa (for allergy use only) Gupta lfa (for allergy use only) Rash Active eCW1 ([facility]) Sulfa (for allergy use only) Sulfa (for allergy use only) Gupta lfa (for allergy use only) Rash Active eCW1 ([facility]) Family History Family Member Name Family Member Gender Family Member Status Date o f Status Description Data Source(s) Unknown Unknown Problem MEDENT ([facility], ) PGM-Dx in her late 60's Encounters Encounter Providers Location Date Indications Data Source(s ) Outpatient Attender: RITA marinelli 04/15/2020 10:15:00 AM EST MEDENT ([facility] Outpatient [address] [facility] [address] 03/28/2020 12:00:00 AM EST eCW1 ([facility]) Unknown [address] [place] [address] 02/17/2020 12:00:00 AM EST eCW1 ([facility]) Outpatient [address] [place] [address] 01/14/2020 12:00:00 AM EDT eCW1 ([facility]) Office Visit, Est Pt., Level 3 PC [address] [place] [address] 12/31/2019 12:00:00 AM EDT eCW1 ([facility]) Outpatient [address] [place] [address] 10/22/2019 12:00:00 AM EDT eCW1 ([facility]) Outpatient [address] [place] [address] 10/19/2019 12:00:00 AM EDT eCW1 ([facility]) Outpatient Attender: Minnie BURNETTEC 10/01/2019 03:18:00 P M EDT [facility] Outpatient Attender: WILLIAN Hdez Primary 09/17/2019 01:45:00 PM EDT MEDENT ([facility]) [facility] [address] [place] [address], [place] [address] 09/14/2019 12:00:00 AM EDT eCW1 ([facility]) [place] [address] [facility] [address] 09/02/2019 12:00:00 AM EDT eCW1 ([facility]) Outpatient 08/13/2019 09:09:00 PM EDT [facility] [place] [address] [facility] [address] 08/04/2019 12:00:00 AM EDT eCW1 ([facility]) [facility] [address] [facility] [address] 08/04/2019 12:00:00 AM EDT eCW1 ([facility]) [facility] [address] [facility] [address] 07/30/2019 12:00:00 AM EDT eCW1 ([facility]) [facility] [address] [facility] [address] 07/27/2019 12:00:00 AM EDT eCW1 ([facility]) [facility] [address] [facility] [address] 07/27/2019 12:00:00 AM EDT eCW1 ([facility]) Outpatient 07/16/2019 06:03:00 AM EDT [facility] [address] [facility] [address] 07/15/2019 12:00:00 AM EDT eCW1 ([facility]) Outpatient Attender: Erlinda Hdez Prim melanie 06/19/2019 05:15:00 PM EDT MEDENT ([facility]) [facility] [address] [facility] [address] 06/19/2019 12:00:00 AM EDT eCW1 ([facility]) [facility] [place] [address] [facility] [address] 06/18/2019 12:00:00 AM EDT eCW1 ([facility]) [facility] [place] [address] [facility] [address] 06/03/2019 12:00:00 AM EST eCW1 ([facility]) [facility] [place] [facility] [address] 05/25/2019 12:00:00 AM EST eCW1 ([facility]) Outpatient Attender: Missy GU.KRYSTIN-SJPSebastiánKRYSTIN 05/12/2019 12:00:00 AM EST [facility] [address] [facility] [address] 03/20/2019 12:00:00 AM EST eCW1 ([facility]) [facility] [address] [facility] [address] 03/20/2019 12:00:00 AM EST eCW1 ([facility]) Outpatient 02/23/2019 09:12:00 PM EST [facility] [place] [address] [facility] [address] 02/19/2019 12:00:00 AM EST eCW1 ([facility]) [facility] [place] [address] [facility] [address] 02/18/2019 12:00:00 AM EST eCW1 ([facility]) Immunizations Vaccine Date Status Description Data Source(s) INFLUENZA VACCINE QUADRIVALENT (65 YR UP)/MF59 C.1/PF 02/23/2020 12:00:00 AM EST completed [facility] Medications Medication Brand Name Start Date Product Form Dose Route Admi nistrative Instructions Pharmacy Instructions Status Indications Reaction Description Data Source(s) Methylprednisolone 4 MG Oral Tablet Methylprednisolone 04/01 12:00:00 AM EST ORAL active MEDENT ([facility]) tizanidine 4 MG Oral Tablet Tizanidine HCL 04/17/2020 12:00:00 AM EST ORAL active MEDENT ([facility]) 4 mg 04/17/2020 12:00:00 AM EST tablet [...] 04/15/2020 12:00:00 AM EST ORAL active MEDENT ([facility]) 100 mg 04/13/2020 12:00:00 AM EST tablet [...] 1.0 {tablet} active Amoxicillin 875 MG eCW1 ([facility]) 875 mg 02/17/2020 12:00:00 AM EST tablet 10 TAKE ONE TABLET BY MOUTH EVERY 12 HOURS FOR 5 DAYS TAKE ONE TABLET BY MOUTH EVERY 12 HOURS FOR 5 DAYS FAUSTO [facility] Amoxicillin 875 MG Oral Tablet Amoxicillin 875 MG 02/17/2020 12:00: 00 AM EST 1.0 {tablet} active Amoxicillin 875 MG eCW1 ([facility]) 100 mg 02/15/2020 12:00:00 AM EST capsule 10 TAKE ONE CAPSULE BY MOUTH TWICE A DAY TAKE ONE CAPSULE BY MOUTH TWICE A DAY SOLD: 02/15/2020 [facility] NITROFURANTOIN, MACROCRYSTALS 25 MG / Ni trofurantoin, Monohydrate 75 MG Oral Capsule [Macrobid] Macrobid 100 MG Macrobid 100 MG 02/15/2020 12:00:00 AM EST active Macrobid 100 MG eCW1 ([facility]) NITROFURANTOIN, MACROCRYSTALS 25 MG / Ni trofurantoin, Monohydrate 75 MG Oral Capsule [Macrobid] Macrobid 100 MG Macrobid 100 MG 02/15/2020 12:00:00 AM EST active Macrobid 100 MG eCW1 ([facility]) 875-125 mg 01/14/2020 12:00:00 AM EDT tablet [...] active Amoxicillin-Pot Cla vulanate 875-125 MG eCW1 ([facility]) Amoxicillin 875 MG / Clavulanate 125 MG Oral Tablet Amoxicillin-Pot Clavulanate 875-125 MG Amoxicillin-Pot Clavulanate 875-125 MG 01/14/2020 12:00:00 AM ED T 1.0 {tablet} active Amoxicillin-Pot Cla vulanate 875-125 MG eCW1 ([facility]) Amoxicillin 875 MG / Clavulanate 125 MG Oral Tablet Amoxicillin-Pot Clavulanate 875-125 MG Amoxicillin-Pot Clavulanate 875-125 MG 01/14/2020 12:00:00 AM ED T 1.0 {tablet} suspended Amoxicillin-Pot C lavulanate 875-125 MG eCW1 ([facility]) Amoxicillin 875 MG / Clavulanate 125 MG Oral Tablet Amoxicillin-Pot Clavulanate 875-125 MG Amoxicillin-Pot Clavulanate 875-125 MG 01/14/2020 12:00:00 AM ED T 1.0 {tablet} suspended Amoxicillin-Pot C lavulanate 875-125 MG eCW1 ([facility]) 300 mg 12/15/2019 12:00:00 AM EDT capsule [...] MOUTH THREE TIMES A DAY SOLD: 12/19/2019 [facility] 300 mg 12/15/2019 12:00:00 AM [...] 09/17/2019 12:00:00 AM EDT ORAL active MEDENT ([facility]) Cephalexin 500 MG Oral Capsule CEPHALEXIN 09/17/2019 [...] Prednisone 06/19/2019 12:00:00 AM EDT completed MEDENT ([facility]) 20 mg 06/19/2019 12:00:00 AM EDT tablet [...] mixed with water or non-carbonated drink eCW1 ([facility]) Cholestyramine Resin 66.7 MG/ML Oral Suspension Choles tyramine 4 GM Cholestyramine 4 GM 06/03/2019 12:00:00 AM EST suspended 1/2 packet mixed with water or non-carbonated drink eCW1 ([facility]) 4 gram 06/03/2019 12:00:00 AM EST powder [...] mixed with water or non-carbonated drink eCW1 ([facility]) 40 mg 05/05/2019 12:00:00 AM EST capsule,delayed [...] capsule at bedtime w ith food eCW1 ([facility]) 100 mg 02/18/2019 12:00:00 AM EST capsule [...] capsule at bedtime wit h food eCW1 ([facility]) Acetaminophen 325 MG / Hydrocodone Bitartrate 5 MG Oral Tabl et [[place]] [place] 02/16/2019 12:00:00 AM EST ORAL completed MEDENT ([facility], ) 50 mcg/actuation 01/22/2019 [...] relationship to erickson Policy Erickson Plan Information [facility] COMMUNITY PLAN [facility] [id number] [facility] COMMUNITY PLAN MCDO [id number] SP [id number] EMEDNY [id number] SP [id number] [facility] [id number] SP [id number] [facility] O [id number] S [id number] MEDICAID M [id number] S [id number] MEDICAID [id number] SP [id number] [facility] MCRO [id number] SP [id number] MEDICAID [id number] Jamila [id number] [facility] MEDICARE [id number] Ajmila [id number] MEDICARE [id number] SP [id number] MEDICAID [id number] SP [id number] [facility] MEDICAID [id number] Jamila [id number] [facility] COMMUNITY PLAN [facility] [id number] SP [id number] [facility] [id number] SP [id number] [facility] Health Maintenance Organization (HMO) [id number] Self [id number] Medicare [place]/[facility] Medicare Primary [id number] Self [id number] Medicaid [place] Medicaid [id number] Self [id number] ANSI-Commercial [id number] [facility] [id number] SP [id number] [facility] Health Maintenance Organization (HMO) [id number] Self [id number] MA[place] MEDICAID [id number] Jamila 7 [id number] ANSI-Commercial [id number] ANSI-Commercial [id number] ANSI-Commercial [id number] ANSI-Commercial [id number] ANSI-Commercial [id number] [place] CARE [place] O [id number] S [id number] Ma[place] Medicaid/CHP/FHP Commercial [id number] Self [id number] [place] Medicaid/CHP/FHP Commercial [id number] Self [id number] [place] Medicaid/CHP/FHP Commercial [id number] Self [id number] [place] Medicaid/CHP/FHP Commercial [id number] Self [id number] MAULIK [id number] SP [id number] [place] CARE [place] O [id number] S [id number] MAULIK [id number] SP [id number] [place] Care [place] Medicaid [id number] Self [id number] SELF PAY ONLY SP1 SP SP1 D Managed Care Maulik P [id number] S [id number] [facility] MEDICAID [id number] Jamila [id number] MAULIK [id number] SP [id number] MEDICAID [facility] [id number] SP [place] [id number] SELF PAY UNAVAILABLE SP UNAVAILA BLE ESIS WC [id number] SP [id number] [facility] MEDICAID [id number] Jamila [id number] WC-PENDING [id number] SP [id number] SELF PAY 2 UNAVAILABLE 1 UNAVAILA BLE SELPAY [id number] [facility] 2 [id number] 1 [id number] ALLSTATE INSURANCE 2 [id number] 1 [id number] [facility] 2 [id number] 2 [id number] EXC PLANS 1 [id number] MEDICAID [facility] 3 [id number] 1 [id number] [facility] [id number] SP [id number] Problems, Conditions, and Diagnoses Code Display Name Description Problem Type Effective Dates Data Source(s) I10 [id number] Essential hypertension Problem 10/19/2019 12 :00:00 AM EDT eCW1 ([facility]) D22.5 [id number] Melanocytic nevi of trunk Problem 09/02/2019 12:00:00 AM EDT eCW1 ([facility]) D22.61 652823603 Melanocytic nevi of right upper limb, including shoulder Problem 09/02/2019 12:00:00 AM EDT eCW1 ([facility]) D22.62 360910182 Melanocytic nevi of left upper l imb, including shoulder Problem 09/02/2019 12:00:00 AM EDT eCW1 ([facility]) L82.1 [id number] SK (seborrheic keratosis) Problem 09/02/2019 12:00:00 AM EDT eCW1 ([facility]) L81.4 360692706 Lentigines Problem 09/02/2019 12:00:00 AM ED T eCW1 ([facility]) Z85.828 250495427 History of nonmelanoma skin cancer Proble m 09/02/2019 12:00:00 AM EDT eCW1 ([facility]) D22.4 53722858 Nevus of head Problem 09/02/2019 12:00:00 AM EDT eCW1 ([facility]) Z90.49 548554814 History of cholecystectomy Problem 0 12:00:00 AM EST eCW1 ([facility]) R91.1 713838142 Pulmonary nodule Problem 06/03/2019 12:00:00 AM EST eCW1 ([facility]) R91.1 359376988 Pulmonary nodule Problem 06/03/2019 12:00:00 AM EST eCW1 ([facility]) Z90.49 100289722 History of cholecystectomy Problem 0 12:00:00 AM EST eCW1 ([facility]) K80.20 03225516 Calculus of gallblad ricardo without cholecystitis without obstruction Problem 02/18/2019 12:00:00 AM EST eCW1 ([facility]) K80.20 93234666 Calculus of gallblad ricardo without cholecystitis without obstruction Problem 02/18/2019 12:00:00 AM EST eCW1 ([facility]) Surgeries/Procedures Procedure Description Date Indications Data Source(s) Suture Removal 10/22/2019 12:00:00 AM EDT eCW1 ([facility]) Transitional Care NO CHARGE Visit 08/04/2019 12:00:00 AM EDT eCW1 ([facility]) PHYSICIAN TELEPHONE EVALUATION 11-20 MIN 07/30/2019 12 :00:00 AM EDT eCW1 ([facility]) Office Visit, Est Pt., Level 2 FC 06/03/2019 12:00:00 AM EST eCW1 ([facility]) Office Visit, Est Pt., Level 3 PC 06/03/2019 12:00:00 AM EST eCW1 ([facility]) Laparoscopy,Surgical;Cholecystectomy 02/20/2019 12:00: 00 AM EST MEDENT ([facility], ) URINE-NO MICRO 02/18/2019 12:00:00 AM EST eCW1 ([facility]) Results ID Date Data Source [id number] 04/15/2020 12:15:00 PM EST MEDENT ([facility]) Name Value Range Interpretation Code Description Data Felecia rce(s) Supporting Document(s) Bacteria identified in Urine by Culture Laboratory test result MEDENT ([facility]) FULL REPORT IN LAB NOTES (eCW and [facility] ). SPECIMEN APPEARS CONTAMINATED ID Date Data Source ADM SPINE CERVICAL COMPLETE 01/14/2020 05:54:44 AM EDT eCW1 ([facility]) Name Value Range Interpretation Code Description Data Felecia rce(s) Supporting Document(s) ADM SPINE CERVICAL COMPLETE eC W1 ([facility]) ID Date Data Source Comprehensive Metabolic Profile (CMP) 01/07/2020 10:09:11 AM EDT eCW1 ([facility]) Name Value Range Interpretation Code Description Data Felecia rce(s) Supporting Document(s) 19 BLOOD UREA NITROGEN eCW1 ([facility]) 86 GLUCOSE, FASTING eCW1 ([facility]) 0.85 CREATININE FOR GFR eCW1 ([facility]) 140 SODIUM LEVEL eCW1 ([facility]) > 60.0 GLOMERULAR FILTRATION RATE eCW 1 ([facility]) 4.2 POTASSIUM SERUM eCW1 ([facility]) 9.2 CALCIUM LEVEL eCW1 ([facility]) 14 AST/SGOT eCW1 ([facility]) 105 CHLORIDE LEVEL eCW1 ([facility]) 27 CARBON DIOXIDE LEVEL eCW1 ([facility] 23 ALT/SGPT eCW1 ([facility]) 85 ALKALINE PHOSPHATASE eCW1 ([facility]) 7.5 TOTAL PROTEIN eCW1 ([facility]) 0.3 BILIRUBIN,TOTAL eCW1 ([facility]) 3.9 ALBUMIN eCW1 ([facility]) 1.1 ALBUMIN/GLOBULIN RATIO eCW1 ([facility]) ID Date Data Source FREE T4 & TSH PANEL 01/07/2020 10:08:17 AM EDT eCW1 ([facility]) Name Value Range Interpretation Code Description Data Felecia rce(s) Supporting Document(s) 2.710 eCW1 ([facility]) 1.04 eCW1 ([facility]) ID Date Data Source [id number] 01/07/2020 10:08:08 AM EDT eCW1 ([facility]) Name Value Range Interpretation Code Description Data Felecia rce(s) Supporting Document(s) Hemoglobin A1c/Hemoglobin.total in Blood 5.2 eCW1 ([facility]) ID Date Data Source Urinalysis, no micro 12/31/2019 02:43:57 AM EDT eCW1 ([facility]) Name Value Range Interpretation Code Description Data Felecia rce(s) Supporting Document(s) eCW1 ([facility]) 5 eCW1 ([facility]) neg eCW1 ([facility]) neg eCW1 ([facility]) neg eCW1 ([facility]) neg eCW1 ([facility]) neg eCW1 ([facility]) neg eCW1 ([facility]) neg eCW1 ([facility]) yes eCW1 ([facility]) neg eCW1 ([facility]) ID Date Data Source [id number] 09/17/2019 02:12:00 PM EDT MEDENT ([facility]) Name Value Range Interpretation Code Description Data Felecia rce(s) Supporting Document(s) Bacteria identified in Urine by Culture Laboratory test result MEDENT ([facility]) FULL REPORT IN LAB NOTES (eCW and [facility] ). NO GROWTH ID Date Data Source [id number] 02/20/2019 12:58:00 PM EST MEDENT ([facility], ) Name Value Range Interpretation Code Description Data Felecia rce(s) Supporting Document(s) Surgical pathology study Laboratory test result MEDENT ([facility], ) <content>FINAL DIAGNOSIS</content>
<content></content>
<content>Gallbladder, cholecystectomy:</content>
[...] wall is maximally 0.1 cm. in thickness. Slip Mixer</content>
<content>in one.</content>
<content>-SH</content>
<content>02/23/2019 - 1350</content>
<content></content>
<content>Signed Bernie Sky MD 02/25/2019 1401</content>
<content></content> Procedure Social History Code Duration Value Status Description Data Source(s ) Smoking 03/28/2020 12:00:00 AM EST Former Smoker completed Former Smoker eCW1 ([facility]) Smoking 02/15/2020 12:00:00 AM EST Former Smoker completed Former Smoker eCW1 ([facility]) Smoking 02/15/2020 12:00:00 AM EST Former Smoker completed Former Smoker eCW1 ([facility]) Smoking 01/14/2020 12:00:00 AM EDT Former Smoker completed Former Smoker eCW1 ([facility]) Smoking 01/14/2020 12:00:00 AM EDT Former Smoker completed Former Smoker eCW1 ([facility]) Smoking 12/31/2019 12:00:00 AM EDT Former Smoker completed Former Smoker eCW1 ([facility]) Smoking 12/31/2019 12:00:00 AM EDT Former Smoker completed Former Smoker eCW1 ([facility]) Smoking 09/02/2019 12:00:00 AM EDT Former Smoker completed Former Smoker eCW1 ([facility]) Vital Signs ID Date Data Source UNK Name Value Range Interpretation Code Description Data Source(s) Body mass index (BMI) [Ratio] 32.5 kg/m2 32.5 k g/m2 MEDENT ([facility]) Body height 72 [in_i] 72 [in_i] MEDENT ([facility]) 6'0" Body weight 240.00 [lb_av] 240.00 [lb_av] MEDEN T ([facility]) Body temperature 98.7 [degF] 98.7 [degF] MEDENT ([facility]) Oxygen saturation in Arterial blood by Pulse oximetry 99 % 99 % MEDENT ([facility]) Respiratory rate 16 /min 16 /min MEDENT ( [facility]) Heart rate 78 /min 78 /min MEDENT ([facility]) Diastolic blood pressure 78 mm[Hg] 78 mm[Hg] MEDENT ([facility]) Systolic blood pressure 136 mm[Hg] 136 mm[Hg] M EDENT ([facility], [facility]) Diastolic blood pressure 80 mm[Hg] 80 mm[Hg] eCW1 ([facility]) Systolic blood pressure 140 mm[Hg] 140 mm[Hg] e CW1 ([facility]) Body temperature 96.5 [degF] 96.5 [degF] eCW1 ( [facility]) Respiratory rate 18 /min 18 /min eCW1 ([facility]) Heart rate 99 /min 99 /min eCW1 ([facility]) Body mass index (BMI) [Ratio] 36.36 kg/m2 36.36 kg/m2 W1 ([facility]) Body height [in_i] W1 ([facility]) Body weight 253.4 [lb_av] 253.4 [lb_av] eCW1 ([facility]) Diastolic blood pressure 86 mm[Hg] 86 mm[Hg] eCW1 ([facility]) Systolic blood pressure 126 mm[Hg] 126 mm[Hg] e CW1 ([facility]) Body temperature 97.3 [degF] 97.3 [degF] eCW1 ( [facility]) Respiratory rate 18 /min 18 /min eCW1 ([facility]) Heart rate 82 /min 82 /min eCW1 ([facility]) Body mass index (BMI) [Ratio] 35.67 kg/m2 35.67 kg/m2 W1 ([facility]) Body height [in_i] eCW1 ([facility]) Body weight 248.6 [lb_av] 248.6 [lb_av] eCW1 ([facility]) Diastolic blood pressure 82 mm[Hg] 82 mm[Hg] eCW1 ([facility]) Systolic blood pressure 124 mm[Hg] 124 mm[Hg] e CW1 ([facility]) Body temperature 96.9 [degF] 96.9 [degF] eCW1 ( [facility]) Respiratory rate 18 /min 18 /min eCW1 ([facility]) Heart rate 79 /min 79 /min eCW1 ([facility]) Body mass index (BMI) [Ratio] 35.32 kg/m2 35.32 kg/m2 eCW1 ([facility]) Body height [in_i] eCW1 ([facility]) Body weight 246.2 [lb_av] 246.2 [lb_av] eCW1 ([facility]) Diastolic blood pressure 78 mm[Hg] 78 mm[Hg] eCW1 ([facility]) Systolic blood pressure 128 mm[Hg] 128 mm[Hg] e CW1 ([facility]) Body temperature 97.8 [degF] 97.8 [degF] eCW1 ( [facility]) Respiratory rate 18 /min 18 /min eCW1 ([facility]) Heart rate 65 /min 65 /min eCW1 ([facility]) Body mass index (BMI) [Ratio] 35.35 kg/m2 35.35 kg/m2 eCW1 ([facility]) Body height [in_i] eCW1 ([facility]) Body weight 246.4 [lb_av] 246.4 [lb_av] eCW1 ([facility]) Body mass index (BMI) [Ratio] 32.5 kg/m2 32.5 k g/m2 MEDENT ([facility]) Body height 72 [in_i] 72 [in_i] MEDENT ([facility]) 6'0" Body weight 240.00 [lb_av] 240.00 [lb_av] MEDEN T ([facility], [facility]) Body temperature 98.5 [degF] 98.5 [degF] MEDENT ([facility], [facility]) Oxygen saturation in Arterial blood by Pulse oximetry 98 % 98 % MEDENT ([facility], [facility]) Respiratory rate 18 /min 18 /min MEDENT ( [facility], [facility]) Heart rate 70 /min 70 /min MEDENT ([facility]) Diastolic blood pressure 80 mm[Hg] 80 mm[Hg] MEDENT ([facility], [facility]) Systolic blood pressure 129 mm[Hg] 129 mm[Hg] M EDENT ([facility]) Diastolic blood pressure 80 mm[Hg] 80 mm[Hg] eCW1 ([facility]) Systolic blood pressure 132 mm[Hg] 132 mm[Hg] e CW1 ([facility]) Body mass index (BMI) [Ratio] 34.46 kg/m2 34.46 kg/m2 eCW1 ([facility]) Body height [in_i] eCW1 ([facility]) Body weight 240.2 [lb_av] 240.2 [lb_av] eCW1 ([facility]) Diastolic blood pressure 83 mm[Hg] 83 mm[Hg] MEDENT ([facility]) Systolic blood pressure 138 mm[Hg] 138 mm[Hg] M EDENT ([facility]) Body weight 110.792 kg 110.792 kg MEDENT ([facility]) Body mass index (BMI) [Ratio] 34.1 kg/m2 34.1 k g/m2 MEDENT ([facility]) Body weight 244.25 [lb_av] 244.25 [lb_av] MEDEN T ([facility]) Body height 71 [in_i] 71 [in_i] [facility] 5'11" Body mass index (BMI) [Ratio] 32.5 kg/m2 32.5 k g/m2 MEDENT [facility] Body height 72 [in_i] 72 [in_i] MEDENT ([facility], [facility]) 6'0" Body weight 240.00 [lb_av] 240.00 [lb_av] MEDEN T ([facility], [facility]) Body temperature 98.4 [degF] 98.4 [degF] MEDENT ([facility], [facility]) Oxygen saturation in Arterial blood by Pulse oximetry 97 % 97 % MEDENT ([facility], [facility]) Respiratory rate 16 /min 16 /min MEDENT ( [facility], [facility]) Heart rate 78 /min 78 /min MEDENT ([facility], [facility]) Diastolic blood pressure 86 mm[Hg] 86 mm[Hg] MEDENT ([facility], [facility]) Systolic blood pressure 140 mm[Hg] 140 mm[Hg] M EDENT ([facility], [facility]) Diastolic blood pressure 74 mm[Hg] 74 mm[Hg] eCW1 ([facility]) Systolic blood pressure 126 mm[Hg] 126 mm[Hg] e CW1 ([facility]) Body temperature 96.5 [degF] 96.5 [degF] eCW1 ( [facility]) Respiratory rate 18 /min 18 /min eCW1 ([facility]) Heart rate 68 /min 68 /min eCW1 ([facility]) Body mass index (BMI) [Ratio] 35.47 kg/m2 35.47 kg/m2 W1 ([facility]) Body height [in_us] eCW1 ([facility]) Body weight Measured 247.2 [lb_av] 247.2 [lb_av ] eCW1 ([facility]) Body weight 110.281 kg 110.281 kg MEDENT ([facility], ) Body mass index (BMI) [Ratio] 33.9 kg/m2 33.9 k g/m2 MEDENT ([facility], ) Body weight 243.12 [lb_av] 243.12 [lb_av] MEDEN T ([facility], ) Body height 71 [in_i] 71 [in_i] MEDENT ([facility], ) 5'11" Diastolic blood pressure 88 mm[Hg] 88 mm[Hg] MEDENT ([facility], ) Systolic blood pressure 142 mm[Hg] 142 mm[Hg] M EDENT ([facility], ) Diastolic blood pressure 80 mm[Hg] 80 mm[Hg] eCW1 ([facility]) Systolic blood pressure 128 mm[Hg] 128 mm[Hg] e CW1 ([facility]) Body temperature 97 [degF] 97 [degF] eCW1 ([facility]) Respiratory rate 18 /min 18 /min eCW1 ([facility]) Heart rate 80 /min 80 /min eCW1 ([facility]) Body mass index (BMI) [Ratio] 35.26 kg/m2 35.26 kg/m2 eCW1 ([facility]) Body height [in_us] eCW1 ([facility]) Body weight Measured 245.8 [lb_av] 245.8 [lb_av ] eCW1 ([facility]) Patient Treatment Plan of Care Planned Activity Planned Date Details Description Data Source (s) Amoxicillin 875 MG Oral Tablet 02/17/2020 12:00:00 AM EST eCW1 ([facility]) Amoxicillin 875 MG Oral Tablet 02/17/2020 12:00:00 AM EST eCW1 ([facility]) NITROFURANTOIN, MACROCRYSTALS 25 MG / Ni trofurantoin, Monohydrate 75 MG Oral Capsule [Macrobid] 02/15/2020 12:00:00 AM EST eC W1 ([facility]) NITROFURANTOIN, MACROCRYSTALS 25 MG / Ni trofurantoin, Monohydrate 75 MG Oral Capsule [Macrobid] 02/15/2020 12:00:00 AM EST eC W1 ([facility]) Amoxicillin 875 MG / Clavulanate 125 MG Oral Tablet 01/14/20 12:00:00 AM EDT eCW1 ([facility]) Amoxicillin 875 MG / Clavulanate 125 MG Oral Tablet 01/14/20 12:00:00 AM EDT eCW1 ([facility]) Cholestyramine Resin 66.7 MG/ML Oral Suspension 06/03/2019 12:00:00 AM EST eCW1 ([facility]) NITROFURANTOIN, MACROCRYSTALS 25 MG / Ni trofurantoin, Monohydrate 75 MG Oral Capsule [Macrobid] 02/18/2019 12:00:00 AM EST eC W1 ([facility])
[2020-04-18] MEDS ORDERED: ISOVUE-370 76% 100ML VIAL As Ordered ONE (13:03)
[2020-04-18 13:06] LABS: BASO # 0.1 10^3/uL (0.0-0.2); BASO % 0.3 % (0.0-1.0); EOS % 0.1 % (0.0-3.0); HEMATOCRIT 38.7 % (36.0-47.0); HEMOGLOBIN 12.5 g/dl (12.0-15.5); LYMPH # 1.7 10^3/uL (1.5-5.0); LYMPH % 11.9 % (24.0-44.0); MEAN CORPUSCULAR HGB CONC 32.3 g/dl (32.0-36.5); MONO # 0.3 10^3/uL (0.0-0.8); MONO % 1.9 % (0.0-5.0); NEUTROPHILS # 12.2 10^3/uL (1.5-8.5); NEUTROPHILS % 85.2 % (36.0-66.0); PLATELET COUNT, AUTOMATED 285 10^3/uL (150-450); RED BLOOD COUNT 4.03 10^6/uL (4.00-5.40); WHITE BLOOD COUNT 14.3 10^3/uL (4.0-10.0)
[2020-04-18 13:35] LABS: ALBUMIN 4.1 GM/DL (3.2-5.2); ALT/SGPT 23 U/L (12-78); AMYLASE 47 U/L (25-115); BILIRUBIN,DIRECT < 0.1 MG/DL (0.0-0.2); BILIRUBIN,TOTAL 0.4 MG/DL (0.2-1.0); LIPASE 121 U/L (73-393)
--- NOTE | 2020-04-18 13:46 | REP ---
INDICATION: RLQ pain, h/o diverticulitis COMPARISON: 08/02/2019. TECHNIQUE: CT Scan of the abdomen and pelvis was performed with intravenous administration of 100 cc of Isovue 370, without oral contrast. FINDINGS: Lung bases: There is mild fibro atelectatic change. There is a large hiatal hernia. Liver: Normal Gallbladder: Prior cholecystectomy. Spleen: Normal. Adrenals: Normal. Pancreas: Normal. Kidneys: Normal. Small and large bowel: Scattered diverticula are seen of the colon without evidence of acute diverticulitis or bowel wall thickening.. Free fluid: None. Abdominal aorta: No aneurysm or dissection. Adenopathy: None. Appendix: Prior appendectomy. Osseous structures: Unremarkable. Pelvis: No mass. Prior hysterectomy. There is a right-sided anterior abdominal hernia at the level of the pelvis with the aperture of the hernia 2.3 cm in diameter. The hernia sac contains noninflamed fat, but no bowel. This appears unchanged. IMPRESSION: Large hiatal hernia. No evidence of bowel obstruction, free air or free fluid. Right-sided anterior abdominal hernia at the level of the pelvis with the aperture of the hernia 2.3 cm in diameter, containing fat but no bowel. This appears unchanged. <Electronically signed by Jason Blanchard > 04/18/20 [id number]
[2020-04-18] MEDS ORDERED: COLA100C5 PO (15:45)
[2020-04-18 15:56] VITALS: BP 150/63
== END 2020-04-18 16:00 | disposition home or self-care (01) ==
LOC: M ED 12:00
DX: K44.9 Diaphragmatic hernia without obstruction or gangrene (principal); I11.9 Hypertensive heart disease without heart failure; K21.9 Gastro-esophageal reflux disease without esophagitis; G47.33 Obstructive sleep apnea (adult) (pediatric); Z79.899 Other long term (current) drug therapy; Z88.1 Allergy status to other antibiotic agents; Z98.890 Other specified postprocedural states; Z90.49 Acquired absence of other specified parts of digestive tract
CPT/HCPCS: 36415; 74177; 80047; 80076; 81001; 82150; 83605; 83690; 85025; 99284; Q9967

== ENCOUNTER → 2020-05-25 | Outpatient (CLI) | payer MEDICARE, MEDICAID ==
[~2020-05-25] MED LIST changes: +COLA100C5 PO
--- NOTE | 2020-05-25 16:43 | REP ---
INDICATION: LEFT KNEE PAIN COMPARISON: 02/05/2017. TECHNIQUE: Five views left knee. FINDINGS: There is no evidence of acute fracture, dislocation, or intrinsic bone disease.There is mild medial joint space narrowing and subchondral sclerosis. There is no evidence of a significant effusion. IMPRESSION: No fracture or dislocation. Mild degenerative changes. <Electronically signed by Jason Blanchard > 05/25/20 [id number]
== END ==
LOC: M ADAMS 13:57
PROVIDERS: ATTEND Family Medicine
DX: M17.12 Unilateral primary osteoarthritis, left knee (principal); M25.562 Pain in left knee
CPT/HCPCS: 73564; G0463

== ENCOUNTER → 2020-07-15 | Outpatient (CLI) | payer MEDICARE, MEDICAID ==
--- NOTE | 2020-07-15 12:20 | REP ---
INDICATION: TEAR OF MEDIAL MENISCUS- LEFT KNEE. COMPARISON: None TECHNIQUE: Sagittal spin-echo proton density, T2 STIR and T2 FLASH. Coronal spin-echo proton density and fat suppressed proton density. Axial fat suppressed proton density. FINDINGS: The anterior and posterior horns of the lateral meniscus are within normal limits. There is grade 3 signal seen within a truncated posterior horn of the medial meniscus. The anterior horn is within normal limits. The anterior and posterior cruciate ligaments are intact. T2 hyper signal and thickening is seen involving the superior fibers of the medial collateral ligament. The lateral collateral ligament is intact. The medial and lateral patellar retinacula are intact. There is a slight joint effusion. Slight subchondral T2 hyper signal is seen in the patella over the medial facet. Patchy T2 hyper signal is seen in the subchondral proximal medial tibial metaphysis. There is thinning and irregularity of all articular cartilages. There is a small focus of subchondral T2 hyper signal in the anterior medial tibial metaphysis IMPRESSION: 1. The posterior horn of the medial meniscus is torn with a possible bucket-handle component. 2. The medial collateral ligament is sprained. 3. Proximal medial tibial metaphyseal subchondral edema. 4. Early patellar subchondral cyst formation. 5. Tricompartmental chondromalacia. 6. There is a slight joint effusion. 7. Subchondral edema versus early subchondral cyst formation in the anteromedial femoral condyle. <Electronically signed by Ezio Smith > 07/15/20 [id number]
== END ==
LOC: M RAD 10:36
PROVIDERS: ATTEND Orthopaedic Surgery Sports Medicine
DX: S83.242A Other tear of medial meniscus, current injury, left knee, initial encounter (principal); M25.462 Effusion, left knee; M22.42 Chondromalacia patellae, left knee; X58.XXXA Exposure to other specified factors, initial encounter; Y92.9 Unspecified place or not applicable

== ENCOUNTER → 2020-08-19 | Outpatient (CLI) | payer MEDICARE, MEDICAID ==
--- NOTE | 2020-08-19 08:47 | REP ---
INDICATION: LUNG CANCER SCREENING COMPARISON: 06/18/2019 TECHNIQUE: Axial noncontrast images from the thoracic inlet to the upper abdomen using low-dose lung screening technique (LDCT). FINDINGS: Lung gann are relatively well aerated and demonstrate stable chronic changes including small 5 mm nodule in the right lower lobe (series 201; image 48). Small focus of linear scarring at the left base noted. Tracheobronchial tree is patent. No effusion. No pneumothorax. Mediastinal adenopathy cannot be excluded based on current examination. Large sliding gastric hiatal hernia again noted. IMPRESSION: 1. Lung-RADS category 2S. Stable nodule in the right lower lobe. However, mild adenopathy cannot be excluded. Correlation is recommended and if necessary short-term contrast-enhanced chest CT should be considered for further investigation. Otherwise, annual low-dose CT surveillance should be continued. <Electronically signed by Heri Reddy > 08/19/20 [id number]
== END ==
LOC: M RAD 08:26
PROVIDERS: ATTEND Family Medicine
DX: Z12.2 Encounter for screening for malignant neoplasm of respiratory organs (principal); Z87.891 Personal history of nicotine dependence; R91.1 Solitary pulmonary nodule; K44.9 Diaphragmatic hernia without obstruction or gangrene

== ENCOUNTER → 2020-08-25 | Outpatient (REF) | payer MEDICARE, MEDICAID ==
[2020-08-25 13:02] LABS: ALBUMIN 3.6 GM/DL (3.2-5.2); ALT/SGPT 26 U/L (12-78); BILIRUBIN,TOTAL 0.3 MG/DL (0.2-1.0); BLOOD UREA NITROGEN 12 MG/DL (7-18); CALCIUM LEVEL 9.1 MG/DL (8.8-10.2); CARBON DIOXIDE LEVEL 30 MEQ/L (21-32); CHLORIDE LEVEL 107 MEQ/L (98-107); CREATININE FOR GFR 0.95 MG/DL (0.55-1.30); GLOMERULAR FILTRATION RATE > 60.0 (>45); GLUCOSE, FASTING 81 MG/DL (70-100); POTASSIUM SERUM 4.3 MEQ/L (3.5-5.1); SODIUM LEVEL 141 MEQ/L (136-145); TOTAL PROTEIN 7.1 GM/DL (6.4-8.2)
== END ==
LOC: M SFHCADAM 09:22
PROVIDERS: ATTEND Family Medicine
DX: R93.89 Abnormal findings on diagnostic imaging of other specified body structures (principal)

== ENCOUNTER → 2020-09-06 | Outpatient (CLI) | payer MEDICARE, MEDICAID ==
[~2020-09-06] MED LIST changes: +ISOVUE-370 76% 100ML VIAL As Ordered ONE
--- NOTE | 2020-09-07 05:23 | REP ---
INDICATION: ABN CHEST CT COMPARISON: 08/19/2020 TECHNIQUE: Axial contrast enhanced images from the thoracic inlet to the upper abdomen with coronal and sagittal reformations using 75 ml Isovue 370 intravenous contrast material. [address] CT examination was performed using the following dose reduction techniques: Automated exposure control, adjustment of mA and/or kv according to the patient's size, and use of iterative reconstruction technique. FINDINGS: The lung gann demonstrate chronic primarily lower lobe linear fibroatelectatic changes along with stable 5 mm right lower lobe nodule. No acute consolidation, new nodule or mass. No effusion. No pneumothorax. Tracheobronchial tree is patent. The mediastinum demonstrates stable relatively normal appearance to the thoracic aorta, pulmonary vasculature, and heart/pericardium. Mediastinal lymph nodes are nonspecific and measure up to 9 mm along with few calcified right hilar lymph nodes suggesting sequela of prior granulomatous disease. Large sliding gastric hiatal hernia again noted and unchanged. Surrounding musculoskeletal structures are intact and without acute osseous abnormality. Limited upper abdomen demonstrates normal bilateral adrenal glands and prior cholecystectomy. IMPRESSION: 1. Pulmonary parenchymal changes appear chronic/benign and likely related to prior granulomatous disease. 2. No acute mediastinal or pleuroparenchymal process. No significant adenopathy. 3. Sliding hiatal hernia. 4. <Electronically signed by Heri Reddy > 09/07/20 [id number]
== END ==
LOC: M RAD 18:26
PROVIDERS: ATTEND Family Medicine
DX: R93.89 Abnormal findings on diagnostic imaging of other specified body structures (principal); K44.9 Diaphragmatic hernia without obstruction or gangrene; R91.8 Other nonspecific abnormal finding of lung field
CPT/HCPCS: 71260; Q9967

== ENCOUNTER 2020-12-13 09:39 | Emergency (ER) | payer MEDICARE, MEDICAID ==
[~2020-12-13] VITALS: Ht 177.8 cm; Wt 114.7 kg
[~2020-12-13 09:39] MED LIST changes: -ISOVUE-370 76% 100ML VIAL As Ordered ONE; +OMEP40CA4 PO; -OMEP40CA97 PO
--- NOTE | 2020-12-13 10:47 | REP ---
INDICATION: cough. COMPARISON: 12/31/2017. TECHNIQUE: Single portable AP view of the chest was performed. FINDINGS: There is no acute infiltrate. Mild cardiomegaly is unchanged. There is a hiatal hernia. The mediastinal silhouette is unchanged. Metallic anchors are seen in the region of the left glenoid. IMPRESSION: No acute pulmonary disease.Mild cardiomegaly. <Electronically signed by Jason Blanchard > 12/13/20 [id number]
[2020-12-13 11:02] VITALS: BP 118/86
--- NOTE | 2020-12-14 18:53 | ECGEPIP ---
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
== END 2020-12-13 14:40 | disposition home or self-care (01) ==
LOC: M ED 09:39
DX: U07.1 COVID-19 (principal); I45.19 Other right bundle-branch block; I48.91 Unspecified atrial fibrillation; Z79.01 Long term (current) use of anticoagulants; Z79.899 Other long term (current) drug therapy; Z88.2 Allergy status to sulfonamides

== ENCOUNTER → 2021-01-09 | Outpatient (REF) | payer MEDICARE, MEDICAID | LOC: M LAB REF 20:14 | PROVIDERS: ATTEND Physician Assistant | DX: N39.0 Urinary tract infection, site not specified (principal) ==

== ENCOUNTER → 2021-02-01 | Outpatient (REF) | payer MEDICARE, MEDICAID | LOC: M LAB REF 09:36 | PROVIDERS: ATTEND Physician Assistant | DX: R30.0 Dysuria (principal) ==

== ENCOUNTER 2021-04-25 13:45 | Emergency (ER) | payer MEDICARE, MEDICAID ==
[~2021-04-25] VITALS: Ht 179.1 cm; Wt 120.2 kg
[2021-04-25] MEDS ORDERED: METOPROLOL TART 25 MG TABLET PO ONE (14:40)
[2021-04-25 14:54] LABS: BASO # 0.1 10^3/uL (0.0-0.2); BASO % 0.7 % (0.0-1.0); EOS # 0.1 10^3/uL (0.0-0.5); HEMATOCRIT 37.6 % (36.0-47.0); HEMOGLOBIN 12.2 g/dl (12.0-15.5); LYMPH # 2.5 10^3/uL (1.5-5.0); LYMPH % 21.7 % (24.0-44.0); MEAN CORPUSCULAR HGB CONC 32.4 g/dl (32.0-36.5); MEAN CORPUSCULAR VOLUME 89.5 fl (80.0-96.0); MONO # 0.7 10^3/uL (0.0-0.8); MONO % 6.2 % (2.0-8.0); NEUTROPHILS # 8.1 10^3/uL (1.5-8.5); NEUTROPHILS % 70.1 % (36.0-66.0); PLATELET COUNT, AUTOMATED 304 10^3/uL (150-450); WHITE BLOOD COUNT 11.6 10^3/uL (4.0-10.0)
[2021-04-25] MEDS: METOPROLOL 5 MG/5 ML VIAL IV SCH ×3 (14:56→15:07)
[2021-04-25 15:06] LABS: INR 1.26; PROTHROMBIN TIME 16.2 SECONDS (12.7-14.5)
[2021-04-25 15:07] VITALS: BP 143/74
[2021-04-25 15:31] LABS: ALBUMIN 3.4 GM/DL (3.2-5.2); ALT/SGPT 20 U/L (12-78); BILIRUBIN,DIRECT < 0.1 MG/DL (0.0-0.2); BILIRUBIN,TOTAL 0.1 MG/DL (0.2-1.0); BLOOD UREA NITROGEN 16 MG/DL (7-18); CALCIUM LEVEL 9.1 MG/DL (8.8-10.2); CARBON DIOXIDE LEVEL 27 MEQ/L (21-32); CHLORIDE LEVEL 108 MEQ/L (98-107); CREATININE FOR GFR 1.02 MG/DL (0.55-1.30); FREE T4 1.03 NG/DL (0.76-1.46); GLOMERULAR FILTRATION RATE 57.4 (>45); GLUCOSE, FASTING 130 MG/DL (70-100); LIPASE 213 U/L (73-393); MAGNESIUM LEVEL 2.3 MG/DL (1.8-2.4); POTASSIUM SERUM 4.1 MEQ/L (3.5-5.1); SODIUM LEVEL 141 MEQ/L (136-145); TOTAL PROTEIN 7.2 GM/DL (6.4-8.2)
[2021-04-25 17:38] VITALS: BP 138/67
== END 2021-04-25 17:42 | disposition home or self-care (01) ==
LOC: M ED 13:45
DX: I48.92 Unspecified atrial flutter (principal); I45.19 Other right bundle-branch block; I44.30 Unspecified atrioventricular block; K44.9 Diaphragmatic hernia without obstruction or gangrene; Z79.01 Long term (current) use of anticoagulants; Z85.43 Personal history of malignant neoplasm of ovary; Z90.49 Acquired absence of other specified parts of digestive tract; Z93.4 Other artificial openings of gastrointestinal tract status; Z87.891 Personal history of nicotine dependence; Z79.899 Other long term (current) drug therapy; Z88.2 Allergy status to sulfonamides

== ENCOUNTER → 2021-05-18 | Outpatient (REF) | payer MEDICARE, MEDICAID ==
[2021-05-18 12:50] LABS: BACTERIA, URINE MOD AMOUNT; MUCUS, URINE MOD AMOUNT (NEGATIVE); RBC, URINE 0-1 /hpf (0-3); SQUAMOUS EPITHELIAL CELL URINE SMALL AMOUNT /hpf (SMALL AMT)
== END ==
LOC: M LAB REF 11:58
PROVIDERS: ATTEND Physician Assistant
DX: R30.0 Dysuria (principal)

== ENCOUNTER → 2021-05-22 | Outpatient (REF) | payer MEDICARE, MEDICAID ==
[2021-05-22 13:42] LABS: BACTERIA, URINE MOD AMOUNT; MUCUS, URINE SMALL AMOUNT (NEGATIVE); RBC, URINE 0-1 /hpf (0-3); SQUAMOUS EPITHELIAL CELL URINE LARGE AMOUNT /hpf (SMALL AMT)
== END ==
LOC: M SMT 12:48
PROVIDERS: ATTEND Specialist
DX: N30.90 Cystitis, unspecified without hematuria (principal)

== ENCOUNTER → 2021-06-13 | Outpatient (CLI) | payer MEDICARE, MEDICAID | LOC: M WUC 10:03 | PROVIDERS: ATTEND Internal Medicine | DX: M19.012 Primary osteoarthritis, left shoulder (principal) ==

== ENCOUNTER 2021-07-04 16:45 | Emergency (ER) | payer MEDICARE, MEDICAID ==
[~2021-07-04] VITALS: Ht 177.8 cm; Wt 109.1 kg
[2021-07-04] MEDS ORDERED: FLUTISP (17:07)
[2021-07-04] MEDS ORDERED: OZEM2INJ (17:07)
[2021-07-04] MEDS ORDERED: FURO20TA2 (17:07)
[2021-07-04 20:00] VITALS: BP 151/86
== END 2021-07-04 20:06 | disposition home or self-care (01) ==
LOC: M ED 16:45
DX: I48.92 Unspecified atrial flutter (principal); I48.91 Unspecified atrial fibrillation; I45.19 Other right bundle-branch block; I10 Essential (primary) hypertension; E78.5 Hyperlipidemia, unspecified; Z79.02 Long term (current) use of antithrombotics/antiplatelets; Z79.899 Other long term (current) drug therapy; Z88.2 Allergy status to sulfonamides

== ENCOUNTER → 2021-07-12 | Outpatient (CLI) | payer MEDICARE, MEDICAID ==
[~2021-07-12] MED LIST changes: +FURO20TA2; +OZEM2INJ
[2021-07-12 16:24] LABS: BLOOD UREA NITROGEN 11 MG/DL (7-18); CALCIUM LEVEL 9.1 MG/DL (8.8-10.2); CARBON DIOXIDE LEVEL 28 MEQ/L (21-32); CHLORIDE LEVEL 109 MEQ/L (98-107); CREATININE FOR GFR 0.95 MG/DL (0.55-1.30); GLOMERULAR FILTRATION RATE > 60.0 (>45); GLUCOSE, FASTING 84 MG/DL (70-100); POTASSIUM SERUM 3.8 MEQ/L (3.5-5.1); SODIUM LEVEL 142 MEQ/L (136-145)
== END ==
LOC: M WUC 12:46
PROVIDERS: ATTEND Internal Medicine Cardiovascular Disease
DX: I48.91 Unspecified atrial fibrillation (principal)

== ENCOUNTER 2021-08-16 18:12 | Observation (INO) | payer MEDICARE, MEDICAID ==
[~2021-08-16] VITALS: Ht 170.2 cm; Wt 114.3 kg
[2021-08-16 19:01] LABS: BASO # 0.1 10^3/uL (0.0-0.2); BASO % 0.5 % (0.0-1.0); EOS # 0.2 10^3/uL (0.0-0.5); EOS % 1.7 % (0.0-3.0); HEMATOCRIT 35.7 % (36.0-47.0); HEMOGLOBIN 11.7 g/dl (12.0-15.5); LYMPH # 3.1 10^3/uL (1.5-5.0); LYMPH % 24.9 % (24.0-44.0); MEAN CORPUSCULAR HEMOGLOBIN 29.3 pg (27.0-33.0); MEAN CORPUSCULAR HGB CONC 32.8 g/dl (32.0-36.5); MEAN CORPUSCULAR VOLUME 89.5 fl (80.0-96.0); MONO # 0.8 10^3/uL (0.0-0.8); MONO % 6.1 % (2.0-8.0); NEUTROPHILS # 8.2 10^3/uL (1.5-8.5); NEUTROPHILS % 66.4 % (36.0-66.0); PLATELET COUNT, AUTOMATED 278 10^3/uL (150-450); RED BLOOD COUNT 3.99 10^6/uL (4.00-5.40); WHITE BLOOD COUNT 12.4 10^3/uL (4.0-10.0)
[2021-08-16 19:13] LABS: INR 1.23; PROTHROMBIN TIME 15.9 SECONDS (12.7-14.5)
[2021-08-16 19:14] LABS: PARTIAL THROMBOPLASTIN TIME 34.2 SECONDS (25.9-37.0)
[2021-08-16 19:41] LABS: CK-MB VALUE MASS 9.2 NG/ML (<3.6); MB/CK RELATIVE INDEX 7.6 (< OR =4)
[2021-08-16] MEDS ORDERED: ATORVASTATIN 20 MG TAB PO SCH (21:00)
[2021-08-16] MEDS ORDERED: ACETAMINOPHEN 325 MG TAB PO ONE (21:20)
[2021-08-16 22:20] LABS: RSV AMPLIFICATION NEGATIVE (NEGATIVE)
[2021-08-17] MEDS ORDERED: ASPIRIN 81 MG CHEW TABLET PO ONE (00:25)
[2021-08-17] MEDS ORDERED: ULTRACET TAB PO ONE (01:30)
[2021-08-17] MEDS ORDERED: DOCU100C16 PO (01:59)
[2021-08-17] MEDS ORDERED: VITA100093 PO (01:59)
[2021-08-17] MEDS ORDERED: ONDA-195 PO (01:59)
[2021-08-17] MEDS ORDERED: FURO20TA2 PO (01:59)
[2021-08-17] MEDS ORDERED: ZINC1TAB2 PO (01:59)
[2021-08-17] MEDS ORDERED: CVS-161 PO (01:59)
[2021-08-17] MEDS ORDERED: FLUTISP (01:59)
[2021-08-17] MEDS ORDERED: VITMTA PO (01:59)
[2021-08-17] MEDS ORDERED: OZEM2INJ SC (01:59)
[2021-08-17 02:30] VITALS: BP 184/97
[2021-08-17 04:00] VITALS: BP 135/63
[2021-08-17 06:16] LABS: ALT/SGPT 15 U/L (12-78); BILIRUBIN,TOTAL 0.4 MG/DL (0.2-1.0); BLOOD UREA NITROGEN 12 MG/DL (7-18); CARBON DIOXIDE LEVEL 27 MEQ/L (21-32); CHLORIDE LEVEL 109 MEQ/L (98-107); CREATININE FOR GFR 0.75 MG/DL (0.55-1.30); GLOMERULAR FILTRATION RATE > 60.0 (>45); GLUCOSE, FASTING 79 MG/DL (70-100); POTASSIUM SERUM 3.7 MEQ/L (3.5-5.1); SODIUM LEVEL 144 MEQ/L (136-145); TOTAL PROTEIN 6.4 GM/DL (6.4-8.2)
[2021-08-17 08:10] VITALS: BP 132/63
[2021-08-17 08:50] VITALS: BP 127/68
[2021-08-17] MEDS ORDERED: ASPIRIN 81 MG CHEW TABLET PO SCH (09:00)
== END 2021-08-17 11:29 | disposition home or self-care (01) ==
LOC: M ED 18:12 → M ED INP 18:13 → M PCU 08-17 02:30
PROVIDERS: ADMIT Internal Medicine; ATTEND Internal Medicine
DX: G45.9 Transient cerebral ischemic attack, unspecified (principal); R79.89 Other specified abnormal findings of blood chemistry; I48.91 Unspecified atrial fibrillation; I10 Essential (primary) hypertension; E66.01 Morbid (severe) obesity due to excess calories; K21.9 Gastro-esophageal reflux disease without esophagitis; Z79.01 Long term (current) use of anticoagulants; Z79.899 Other long term (current) drug therapy; Z88.2 Allergy status to sulfonamides
CPT/HCPCS: 36415; 70450; 70544; 70547; 70551; 71045; 80047; 80053; 82550; 82553; 84484; 85025; 85610; 85730; 86850; 86900; 86901; 87631; 93005; 93041; 93306; 94760; 97161; 97165; 97530; 99285; G0378

== ENCOUNTER → 2021-08-29 | Outpatient (CLI) | payer MEDICARE, MEDICAID ==
[~2021-08-29] MED LIST changes: +CVS-161 PO; +DOCU100C16 PO; +ONDA-195 PO; +OZEM2INJ SC; +VITA100093 PO; +VITMTA PO; +ZINC1TAB2 PO
== END ==
LOC: M WUC 09:19
DX: M79.675 Pain in left toe(s) (principal); S92.425A Nondisplaced fracture of distal phalanx of left great toe, initial encounter for closed fracture; X58.XXXA Exposure to other specified factors, initial encounter; Y92.9 Unspecified place or not applicable; Y99.9 Unspecified external cause status; Y93.9 Activity, unspecified

== ENCOUNTER → 2021-10-27 | Outpatient (REF) | payer MEDICARE, MEDICAID | LOC: M LAB REF 10:17 | PROVIDERS: ATTEND Physician Assistant | DX: R30.0 Dysuria (principal) ==

== ENCOUNTER → 2021-11-06 | Outpatient (REF) | payer MEDICARE, MEDICAID | LOC: M LAB REF 16:11 | PROVIDERS: ATTEND Physician Assistant | DX: N39.0 Urinary tract infection, site not specified (principal) ==

== ENCOUNTER → 2021-11-28 | Outpatient (REF) | payer MEDICARE, MEDICAID | LOC: M LAB REF 16:07 | PROVIDERS: ATTEND Internal Medicine | DX: M79.10 Myalgia, unspecified site (principal) ==

== ENCOUNTER → 2021-12-06 | Outpatient (REF) | payer MEDICARE, MEDICAID ==
[~2021-12-06] MED LIST changes: +ALBU6.7H6 INH; -PROV108A INH
== END ==
LOC: M LAB REF 16:03
PROVIDERS: ATTEND Internal Medicine
DX: M79.10 Myalgia, unspecified site (principal); M25.519 Pain in unspecified shoulder

== ENCOUNTER → 2021-12-25 | Outpatient (CLI) | payer MEDICARE, MEDICAID ==
[~2021-12-25] MED LIST changes: +GASTROGRAFIN SOLUTION 30ML (Q9963) As Ordered ONE
== END ==
LOC: M RAD 08:35
PROVIDERS: ATTEND Internal Medicine
DX: R59.0 Localized enlarged lymph nodes (principal); N32.1 Vesicointestinal fistula; K44.9 Diaphragmatic hernia without obstruction or gangrene; R91.8 Other nonspecific abnormal finding of lung field
CPT/HCPCS: 71250; 74176; Q9963

== ENCOUNTER → 2022-01-08 | Outpatient (REF) | payer MEDICARE, MEDICAID ==
[~2022-01-08] MED LIST changes: -GASTROGRAFIN SOLUTION 30ML (Q9963) As Ordered ONE
== END ==
LOC: M LAB REF 16:10
PROVIDERS: ATTEND Internal Medicine
DX: M79.10 Myalgia, unspecified site (principal); M25.519 Pain in unspecified shoulder

== ENCOUNTER → 2022-02-09 | Outpatient (REF) | payer MEDICARE, MEDICAID | LOC: M WUC 09:15 | PROVIDERS: ATTEND Physician Assistant | DX: R30.0 Dysuria (principal) ==

== ENCOUNTER → 2022-03-30 | Outpatient (REF) | payer MEDICARE, MEDICAID | LOC: M LAB REF 10:57 | PROVIDERS: ATTEND Internal Medicine | DX: M35.3 Polymyalgia rheumatica (principal) ==

== ENCOUNTER → 2022-04-04 | Outpatient (REF) | payer MEDICARE, MEDICAID | LOC: M LAB REF 12:13 | PROVIDERS: ATTEND Internal Medicine | DX: Z01.89 Encounter for other specified special examinations (principal) ==

== ENCOUNTER → 2022-04-12 | Outpatient (REF) | payer MEDICARE, MEDICAID ==
[2022-04-12 12:59] LABS: IRON (FE) 40 UG/DL (50-170); RHEUMATOID FACTOR QUANT < 3.5 IU/ML (<14)
[2022-04-12 13:00] LABS: PERCENT SATURATION 11.4 % (13.2-45.0); TOTAL IRON BINDING CAPACITY 351 UG/DL (250-425)
[2022-04-12 13:02] LABS: FERRITIN 15.5 NG/ML (7.3-270.7)
[2022-04-12 13:03] LABS: VITAMIN B12 LEVEL 381 PG/ML (211-911)
[2022-04-16 15:07] LABS: ANA (HEP2) Negative (.); CYCLIC CITRULLINATED PEPTIDE 1 units (0-19)
== END ==
LOC: M LAB REF 11:56
PROVIDERS: ATTEND Internal Medicine
DX: M35.3 Polymyalgia rheumatica (principal); M25.50 Pain in unspecified joint; D64.9 Anemia, unspecified

== ENCOUNTER → 2022-04-18 | Outpatient (REF) | payer MEDICARE, MEDICAID | LOC: M LAB REF 11:38 | PROVIDERS: ATTEND Internal Medicine | DX: R53.83 Other fatigue (principal) ==

== ENCOUNTER → 2022-05-02 | Outpatient (REF) | payer MEDICARE, MEDICAID | LOC: M LAB REF 16:23 | PROVIDERS: ATTEND Internal Medicine | DX: M79.10 Myalgia, unspecified site (principal) ==

== ENCOUNTER → 2022-07-05 | Outpatient (REF) | payer MEDICARE, MEDICAID ==
[~2022-07-05] MED LIST changes: +FLUT50SP17; -FLUTISP
== END ==
LOC: M LAB REF 16:33
PROVIDERS: ATTEND Internal Medicine
DX: M79.10 Myalgia, unspecified site (principal); M35.3 Polymyalgia rheumatica

== ENCOUNTER → 2022-08-20 | Outpatient (CLI) | payer MEDICARE, MEDICAID | LOC: M WUC 08:37 | PROVIDERS: ATTEND Student in an Organized Health Care Education/Training Program | DX: M79.674 Pain in right toe(s) (principal); M19.071 Primary osteoarthritis, right ankle and foot ==

== ENCOUNTER → 2022-08-28 | Outpatient (CLI) | payer MEDICARE, MEDICAID | LOC: M WUC 08:42 | PROVIDERS: ATTEND Physician Assistant | DX: S39.012A Strain of muscle, fascia and tendon of lower back, initial encounter (principal); M54.31 Sciatica, right side; M47.816 Spondylosis without myelopathy or radiculopathy, lumbar region; S33.2XXD Dislocation of sacroiliac and sacrococcygeal joint, subsequent encounter; X58.XXXA Exposure to other specified factors, initial encounter; Y92.9 Unspecified place or not applicable; Y93.9 Activity, unspecified; Y99.9 Unspecified external cause status ==

== ENCOUNTER → 2022-10-05 | Outpatient (REF) | payer MEDICARE, MEDICAID | LOC: M LAB REF 16:19 | PROVIDERS: ATTEND Internal Medicine | DX: M35.3 Polymyalgia rheumatica (principal) ==

== ENCOUNTER 2022-10-14 02:18 | Emergency (ER) | payer MEDICARE, MEDICAID ==
[~2022-10-14] VITALS: Ht 177.8 cm; Wt 115.5 kg
[2022-10-14 02:18] VITALS: BP 144/74; TEMP 96.5; O2SAT 97
[~2022-10-14 02:18] MED LIST changes: +DICY-61 PO; -DICY10CA13 PO
[2022-10-14] MEDS ORDERED: VALA1TAB5 PO (07:39)
[2022-10-14] MEDS ORDERED: OXYC1TAB23 PO (07:39)
== END 2022-10-14 07:51 | disposition home or self-care (01) ==
LOC: M ED 02:18
DX: B02.9 Zoster without complications (principal); I10 Essential (primary) hypertension; F10.10 Alcohol abuse, uncomplicated; Z86.79 Personal history of other diseases of the circulatory system; Z79.810 Long term (current) use of selective estrogen receptor modulators (SERMs); Z79.899 Other long term (current) drug therapy

== ENCOUNTER 2022-12-11 12:14 | Emergency (ER) | payer MEDICAID, MEDICARE ==
[~2022-12-11] VITALS: Ht 177.8 cm; Wt 116.5 kg
[~2022-12-11 12:14] MED LIST changes: +OXYC1TAB23 PO; +VALA1TAB5 PO
[2022-12-11 12:17] VITALS: BP 172/96; TEMP 97.3; O2SAT 97
== END 2022-12-11 14:06 | disposition left against medical advice (07) ==
LOC: M ED 12:14
DX: Z53.21 Procedure and treatment not carried out due to patient leaving prior to being seen by health care provider (principal)

== ENCOUNTER → 2023-01-07 | Outpatient (REF) | payer MEDICARE, MEDICAID ==
[2023-01-07 18:25] LABS: IRON (FE) 58 UG/DL (50-170); PERCENT SATURATION 17.5 % (13.2-45.0); TOTAL IRON BINDING CAPACITY 332 UG/DL (250-425)
[2023-01-07 18:27] LABS: FERRITIN 35.3 NG/ML (7.3-270.7); HEPATITIS B SURFACE ANTIBODY NEGATIVE (POSITIVE)
[2023-01-07 19:01] LABS: HEPATITIS B CORE ANTIBODY IGM NEGATIVE (NEGATIVE); HEPATITIS C VIRUS ABY INDEX 0.04 INDEX (<0.8)
== END ==
LOC: M LAB REF 16:52
PROVIDERS: ATTEND Internal Medicine
DX: M35.3 Polymyalgia rheumatica (principal); D50.9 Iron deficiency anemia, unspecified; Z11.59 Encounter for screening for other viral diseases; Z11.1 Encounter for screening for respiratory tuberculosis

== ENCOUNTER 2023-01-30 11:25 | Emergency (ER) | payer MEDICARE, MEDICAID ==
[~2023-01-30] VITALS: Ht 177.8 cm; Wt 120.1 kg
[2023-01-30 11:25] VITALS: TEMP 98.1
[2023-01-30 12:42] LABS: BASO % 0.4 % (0.0-1.0); EOS % 0.4 % (0.0-3.0); HEMATOCRIT 41.6 % (36.0-47.0); HEMOGLOBIN 13.7 g/dl (12.0-15.5); LYMPH # 1.4 10^3/uL (1.5-5.0); LYMPH % 12.8 % (24.0-44.0); MEAN CORPUSCULAR HEMOGLOBIN 31.9 pg (27.0-33.0); MEAN CORPUSCULAR HGB CONC 32.9 g/dl (32.0-36.5); MEAN CORPUSCULAR VOLUME 96.7 fl (80.0-96.0); MONO # 0.4 10^3/uL (0.0-0.8); MONO % 3.6 % (2.0-8.0); NEUTROPHILS # 8.8 10^3/uL (1.5-8.5); NEUTROPHILS % 82.3 % (36.0-66.0); PLATELET COUNT, AUTOMATED 246 10^3/uL (150-450); WHITE BLOOD COUNT 10.6 10^3/uL (4.0-10.0)
[2023-01-30 12:52] LABS: BLOOD UREA NITROGEN 13 MG/DL (9-23); CARBON DIOXIDE LEVEL 27 MMOL/L (20-31); CHLORIDE LEVEL 106 MMOL/L (98-107); CREATININE FOR GFR 0.74 MG/DL (0.55-1.30); GLOMERULAR FILTRATION RATE > 60.0 (>45); GLUCOSE, FASTING 98 MG/DL (74-106); POTASSIUM SERUM 4.2 MMOL/L (3.5-5.1); SODIUM LEVEL 142 MMOL/L (136-145)
[2023-01-30 12:53] LABS: CPK CREATINE PHOSPHOKINASE 68 U/L (34-145); MB/CK RELATIVE INDEX 1.47 (< OR =4)
[2023-01-30] MEDS ORDERED: ISOVUE-370 76% 100ML VIAL As Ordered ONE (13:34)
[2023-01-30 13:50] VITALS: BP 151/73
[2023-01-30 13:55] VITALS: O2SAT 99
[2023-01-30 14:02] LABS: ALBUMIN 3.6 G/DL (3.2-5.2); BILIRUBIN,DIRECT 0.1 MG/DL (<0.4); BILIRUBIN,TOTAL 0.4 MG/DL (0.3-1.2); CK-MB VALUE MASS < 1.0 NG/ML (<3.6); TOTAL PROTEIN 6.4 G/DL (5.7-8.2)
[2023-01-30 14:06] LABS: CPK CREATINE PHOSPHOKINASE 68 U/L (34-145); MB/CK RELATIVE INDEX 1.47 (< OR =4)
== END 2023-01-30 16:05 | disposition home or self-care (01) ==
LOC: M ED 11:25
DX: R07.9 Chest pain, unspecified (principal); I45.9 Conduction disorder, unspecified; I10 Essential (primary) hypertension; K21.9 Gastro-esophageal reflux disease without esophagitis; E66.01 Morbid (severe) obesity due to excess calories; Z86.79 Personal history of other diseases of the circulatory system; Z86.73 Personal history of transient ischemic attack (TIA), and cerebral infarction without residual deficits; Z87.891 Personal history of nicotine dependence; Z79.891 Long term (current) use of opiate analgesic; Z79.810 Long term (current) use of selective estrogen receptor modulators (SERMs); Z79.899 Other long term (current) drug therapy
CPT/HCPCS: 36415; 71045; 71275; 80048; 80076; 82550; 82553; 83690; 84484; 85025; 93005; 93041; 94760; 99285; Q9967

== ENCOUNTER 2023-06-10 02:48 | Emergency (ER) | payer MEDICARE, MEDICAID ==
[~2023-06-10] VITALS: Ht 167.6 cm; Wt 121.0 kg
[~2023-06-10 02:48] MED LIST changes: -FLUT50SP17; +FLUTISP
[2023-06-10 03:18] LABS: BASO # 0.1 10^3/uL (0.0-0.2); BASO % 0.6 % (0.0-1.0); EOS # 0.1 10^3/uL (0.0-0.5); EOS % 1.2 % (0.0-3.0); HEMATOCRIT 42.6 % (36.0-47.0); HEMOGLOBIN 14.3 g/dl (12.0-15.5); LYMPH # 2.8 10^3/uL (1.5-5.0); LYMPH % 29.6 % (24.0-44.0); MEAN CORPUSCULAR HEMOGLOBIN 33.4 pg (27.0-33.0); MEAN CORPUSCULAR HGB CONC 33.6 g/dl (32.0-36.5); MEAN CORPUSCULAR VOLUME 99.5 fl (80.0-96.0); MONO # 0.8 10^3/uL (0.0-0.8); MONO % 8.8 % (2.0-8.0); NEUTROPHILS # 5.5 10^3/uL (1.5-8.5); NEUTROPHILS % 59.5 % (36.0-66.0); PLATELET COUNT, AUTOMATED 222 10^3/uL (150-450); RED BLOOD COUNT 4.28 10^6/uL (4.00-5.40); WHITE BLOOD COUNT 9.3 10^3/uL (4.0-10.0)
[2023-06-10 03:23] LABS: VENOUS BASE EXCESS 1.3 (-2.0-2.0); VENOUS HCO3 25.9 MMOL/L (23.0-27.0); VENOUS O2 SATURATION 97.2 % (60.0-80.0); VENOUS PARTIAL PRESSURE CO2 40.8 mmHg (38.0-50.0); VENOUS PARTIAL PRESSURE O2 101.8 mmHg (30.0-50.0); VENOUS STANDARD HCO3 25.6 MMOL/L; VENOUS TOTAL CO2 27.1 MMOL/L (24.0-28.0)
[2023-06-10 03:39] LABS: CK-MB VALUE MASS < 1.0 NG/ML (<3.6)
[2023-06-10 03:41] LABS: ALBUMIN 3.7 G/DL (3.2-5.2); ALKALINE PHOSPHATASE 46 U/L (46-116); ALT/SGPT 20 U/L (7.0-40); AST/SGOT 12 U/L (<34); BILIRUBIN,DIRECT 0.1 MG/DL (<0.4); BILIRUBIN,TOTAL 0.5 MG/DL (0.3-1.2); BLOOD UREA NITROGEN 18 MG/DL (9-23); CARBON DIOXIDE LEVEL 27 MMOL/L (20-31); CHLORIDE LEVEL 110 MMOL/L (98-107); CPK CREATINE PHOSPHOKINASE 50 U/L (34-145); CREATININE FOR GFR 0.81 MG/DL (0.55-1.30); GLOMERULAR FILTRATION RATE > 60.0 (>39); GLUCOSE, FASTING 91 MG/DL (74-106); POTASSIUM SERUM 4.1 MMOL/L (3.5-5.1); SODIUM LEVEL 143 MMOL/L (136-145); TOTAL PROTEIN 6.3 G/DL (5.7-8.2)
[2023-06-10] MEDS: IPRATROPIUM 0.5MG/ALBUTEROL 2.5MG INH SOL UD 3ML (DUONEB) NEB ONE (04:32)
[2023-06-10 05:22] LABS: CK-MB VALUE MASS < 1.0 NG/ML (<3.6)
[2023-06-10 05:23] LABS: CPK CREATINE PHOSPHOKINASE 47 U/L (34-145); MB/CK RELATIVE INDEX 2.12 (< OR =4)
[2023-06-10 06:30] VITALS: BP 119/58; TEMP 97.6; O2SAT 94
== END 2023-06-10 06:53 | disposition home or self-care (01) ==
LOC: M ED 02:48
DX: J69.0 Pneumonitis due to inhalation of food and vomit (principal); I48.91 Unspecified atrial fibrillation; I10 Essential (primary) hypertension; K21.9 Gastro-esophageal reflux disease without esophagitis; Z86.73 Personal history of transient ischemic attack (TIA), and cerebral infarction without residual deficits; Z79.02 Long term (current) use of antithrombotics/antiplatelets; Z79.4 Long term (current) use of insulin; Z79.899 Other long term (current) drug therapy

== ENCOUNTER → 2023-07-12 | Outpatient (REF) | payer MEDICARE, MEDICAID ==
[2023-07-12 11:50] LABS: APPEARANCE, URINE CLEAR (CLEAR); BACTERIA, URINE AUTO NEGATIVE (NEGATIVE); BILIRUBIN, URINE AUTO NEGATIVE (NEGATIVE); BLOOD, URINE BLOOD NEGATIVE (NEGATIVE); COLOR, URINE YELLOW (YELLOW); GLUCOSE, URINE (UA) AUTO NEGATIVE (NEGATIVE); KETONE, URINE AUTO NEGATIVE (NEGATIVE); LEUKOCYTE ESTERASE, URINE AUTO NEGATIVE (NEGATIVE); MUCUS, URINE SMALL (NEGATIVE); NITRITE, URINE AUTO NEGATIVE (NEGATIVE); PROTEIN, URINE AUTO NEGATIVE (NEGATIVE); RBC, URINE AUTO 2 /HPF (0-3); SPECIFIC GRAVITY URINE AUTO 1.024 (1.002-1.035); SQUAMOUS EPITHELIAL CELL UR AU 1 /HPF (0-6); WBC, URINE AUTO 1 /HPF (0-3)
== END ==
LOC: M LAB REF 11:29
PROVIDERS: ATTEND Internal Medicine
DX: R31.9 Hematuria, unspecified (principal)

== ENCOUNTER → 2023-08-07 | Outpatient (REF) | payer OTHER, MEDICAID ==
[2023-08-07 14:22] LABS: APPEARANCE, URINE CLEAR (CLEAR); BACTERIA, URINE AUTO NEGATIVE (NEGATIVE); BILIRUBIN, URINE AUTO NEGATIVE (NEGATIVE); BLOOD, URINE BLOOD 1+ (NEGATIVE); COLOR, URINE YELLOW (YELLOW); GLUCOSE, URINE (UA) AUTO NEGATIVE (NEGATIVE); KETONE, URINE AUTO NEGATIVE (NEGATIVE); LEUKOCYTE ESTERASE, URINE AUTO NEGATIVE (NEGATIVE); MUCUS, URINE SMALL (NEGATIVE); NITRITE, URINE AUTO NEGATIVE (NEGATIVE); PROTEIN, URINE AUTO NEGATIVE (NEGATIVE); RBC, URINE AUTO 7 /HPF (0-3); SPECIFIC GRAVITY URINE AUTO 1.021 (1.002-1.035); SQUAMOUS EPITHELIAL CELL UR AU 0 /HPF (0-6); WBC, URINE AUTO 0 /HPF (0-3)
== END ==
LOC: M LAB REF 12:47
PROVIDERS: ATTEND Internal Medicine
DX: R31.9 Hematuria, unspecified (principal)

== ENCOUNTER → 2023-08-19 | Outpatient (CLI) | payer OTHER, MEDICAID ==
[~2023-08-19] MED LIST changes: +ISOVUE-370 76% 100ML VIAL As Ordered ONE
== END ==
LOC: M RAD 14:44
PROVIDERS: ATTEND Internal Medicine
DX: R31.0 Gross hematuria (principal)
CPT/HCPCS: 74178; Q9967

== ENCOUNTER → 2023-08-29 | Outpatient (REF) | payer OTHER, MEDICAID ==
[~2023-08-29] MED LIST changes: -ISOVUE-370 76% 100ML VIAL As Ordered ONE
[2023-08-29 13:43] LABS: APPEARANCE, URINE CLEAR (CLEAR); BACTERIA, URINE AUTO NEGATIVE (NEGATIVE); BILIRUBIN, URINE AUTO NEGATIVE (NEGATIVE); BLOOD, URINE BLOOD 1+ (NEGATIVE); COLOR, URINE YELLOW (YELLOW); GLUCOSE, URINE (UA) AUTO NEGATIVE (NEGATIVE); KETONE, URINE AUTO NEGATIVE (NEGATIVE); LEUKOCYTE ESTERASE, URINE AUTO NEGATIVE (NEGATIVE); MUCUS, URINE SMALL (NEGATIVE); NITRITE, URINE AUTO NEGATIVE (NEGATIVE); PROTEIN, URINE AUTO NEGATIVE (NEGATIVE); RBC, URINE AUTO 0 /HPF (0-3); SPECIFIC GRAVITY URINE AUTO 1.017 (1.002-1.035); SQUAMOUS EPITHELIAL CELL UR AU 1 /HPF (0-6); UROBILINOGEN, URINE AUTO 0.2 mg/dL (0.0-2.0); WBC, URINE AUTO 1 /HPF (0-3)
== END ==
LOC: M SMT 12:32
PROVIDERS: ATTEND Specialist
DX: R31.0 Gross hematuria (principal)

== ENCOUNTER → 2023-09-02 | Outpatient (REF) | payer OTHER, MEDICAID | LOC: M SMT 12:14 | PROVIDERS: ATTEND Specialist | DX: R31.0 Gross hematuria (principal) ==

== ENCOUNTER → 2023-09-05 | Outpatient (CLI) | payer OTHER, MEDICAID ==
[~2023-09-05] MED LIST changes: +ONDA-282 PO; -ONDA4TAB6 PO
[2023-09-05 15:06] LABS: C REACTIVE PROTEIN QUANTITATIV < 0.40 MG/DL (<1.0)
[2023-09-05 15:08] LABS: ALBUMIN 3.9 G/DL (3.2-5.2); ALKALINE PHOSPHATASE 49 U/L (46-116); ALT/SGPT 21 U/L (7.0-40); AST/SGOT 8 U/L (<34); BILIRUBIN,TOTAL 0.5 MG/DL (0.3-1.2); BLOOD UREA NITROGEN 18 MG/DL (9-23); CALCIUM LEVEL 9.2 MG/DL (8.3-10.6); CARBON DIOXIDE LEVEL 30 MMOL/L (20-31); CHLORIDE LEVEL 106 MMOL/L (98-107); CREATININE FOR GFR 0.89 MG/DL (0.55-1.30); GLOMERULAR FILTRATION RATE > 60.0 (>39); GLUCOSE, FASTING 114 MG/DL (74-106); POTASSIUM SERUM 4.5 MMOL/L (3.5-5.1); SODIUM LEVEL 141 MMOL/L (136-145); TOTAL PROTEIN 6.4 G/DL (5.7-8.2)
[2023-09-05 15:09] LABS: CPK CREATINE PHOSPHOKINASE 48 U/L (34-145)
[2023-09-05 15:10] LABS: BASO # 0.1 10^3/uL (0.0-0.2); BASO % 0.6 % (0.0-1.0); EOS % 0.5 % (0.0-3.0); HEMATOCRIT 45.5 % (36.0-47.0); HEMOGLOBIN 14.7 g/dl (12.0-15.5); LYMPH # 1.3 10^3/uL (1.5-5.0); LYMPH % 15.2 % (24.0-44.0); MEAN CORPUSCULAR HEMOGLOBIN 33.1 pg (27.0-33.0); MEAN CORPUSCULAR HGB CONC 32.3 g/dl (32.0-36.5); MEAN CORPUSCULAR VOLUME 102.5 fl (80.0-96.0); MONO # 0.4 10^3/uL (0.0-0.8); MONO % 4.2 % (2.0-8.0); NEUTROPHILS # 6.6 10^3/uL (1.5-8.5); PLATELET COUNT, AUTOMATED 232 10^3/uL (150-450); RED BLOOD COUNT 4.44 10^6/uL (4.00-5.40); WHITE BLOOD COUNT 8.3 10^3/uL (4.0-10.0)
[2023-09-05 15:23] LABS: ERYTHROCYTE SEDIMENTATION RATE 5 mm/hr (0-30)
== END ==
LOC: M PLALAB 09:21
PROVIDERS: ATTEND Physician Assistant
DX: M62.81 Muscle weakness (generalized) (principal); M35.3 Polymyalgia rheumatica; Z79.899 Other long term (current) drug therapy

== ENCOUNTER → 2023-10-21 | Outpatient (CLI) | payer OTHER, MEDICAID ==
[2023-10-21 16:29] LABS: BASO % 0.3 % (0.0-1.0); EOS % 0.1 % (0.0-3.0); HEMATOCRIT 39.3 % (36.0-47.0); HEMOGLOBIN 12.9 g/dl (12.0-15.5); LYMPH # 1.1 10^3/uL (1.5-5.0); LYMPH % 10.3 % (24.0-44.0); MEAN CORPUSCULAR HEMOGLOBIN 33.2 pg (27.0-33.0); MEAN CORPUSCULAR HGB CONC 32.8 g/dl (32.0-36.5); MEAN CORPUSCULAR VOLUME 101.3 fl (80.0-96.0); MONO # 0.2 10^3/uL (0.0-0.8); MONO % 2.2 % (2.0-8.0); NEUTROPHILS % 86.7 % (36.0-66.0); PLATELET COUNT, AUTOMATED 270 10^3/uL (150-450); RED BLOOD COUNT 3.88 10^6/uL (4.00-5.40); WHITE BLOOD COUNT 10.3 10^3/uL (4.0-10.0)
[2023-10-21 16:39] LABS: ERYTHROCYTE SEDIMENTATION RATE 17 mm/hr (0-30)
[2023-10-21 16:53] LABS: ALBUMIN 3.8 G/DL (3.2-5.2); ALKALINE PHOSPHATASE 67 U/L (46-116); ALT/SGPT 15 U/L (7.0-40); AST/SGOT < 8 U/L (<34); BILIRUBIN,TOTAL 0.5 MG/DL (0.3-1.2); BLOOD UREA NITROGEN 15 MG/DL (9-23); CALCIUM LEVEL 8.9 MG/DL (8.3-10.6); CARBON DIOXIDE LEVEL 27 MMOL/L (20-31); CHLORIDE LEVEL 106 MMOL/L (98-107); CREATININE FOR GFR 0.74 MG/DL (0.55-1.30); GLOMERULAR FILTRATION RATE > 60.0 (>39); GLUCOSE, FASTING 107 MG/DL (74-106); POTASSIUM SERUM 4.2 MMOL/L (3.5-5.1); SODIUM LEVEL 141 MMOL/L (136-145); TOTAL PROTEIN 6.6 G/DL (5.7-8.2)
== END ==
LOC: M PLALAB 11:39
PROVIDERS: ATTEND Physician Assistant
DX: M35.3 Polymyalgia rheumatica (principal)

== ENCOUNTER → 2023-11-12 | Outpatient (REF) | payer OTHER, MEDICAID | LOC: M LAB REF 12:33 | PROVIDERS: ATTEND Internal Medicine | DX: N39.0 Urinary tract infection, site not specified (principal) ==

== ENCOUNTER → 2023-11-19 | Outpatient (CLI) | payer OTHER, MEDICAID ==
[2023-11-19 15:13] LABS: BASO % 0.2 % (0.0-1.0); EOS % 0.3 % (0.0-3.0); HEMATOCRIT 40.6 % (36.0-47.0); LYMPH # 0.9 10^3/uL (1.5-5.0); LYMPH % 7.4 % (24.0-44.0); MONO # 0.2 10^3/uL (0.0-0.8); MONO % 1.6 % (2.0-8.0); NEUTROPHILS # 11.3 10^3/uL (1.5-8.5); PLATELET COUNT, AUTOMATED 261 10^3/uL (150-450); RED BLOOD COUNT 3.94 10^6/uL (4.00-5.40); WHITE BLOOD COUNT 12.6 10^3/uL (4.0-10.0)
[2023-11-19 15:20] LABS: ERYTHROCYTE SEDIMENTATION RATE 29 mm/hr (0-30)
[2023-11-19 15:35] LABS: ALBUMIN 3.7 G/DL (3.2-5.2); ALKALINE PHOSPHATASE 73 U/L (46-116); ALT/SGPT 18 U/L (7.0-40); AST/SGOT < 8 U/L (<34); BILIRUBIN,TOTAL 0.7 MG/DL (0.3-1.2); BLOOD UREA NITROGEN 20 MG/DL (9-23); CALCIUM LEVEL 8.9 MG/DL (8.3-10.6); CARBON DIOXIDE LEVEL 26 MMOL/L (20-31); CHLORIDE LEVEL 108 MMOL/L (98-107); GLOMERULAR FILTRATION RATE > 60.0 (>39); GLUCOSE, FASTING 124 MG/DL (74-106); POTASSIUM SERUM 4.3 MMOL/L (3.5-5.1); SODIUM LEVEL 142 MMOL/L (136-145); TOTAL PROTEIN 6.7 G/DL (5.7-8.2)
== END ==
LOC: M PLALAB 12:24
PROVIDERS: ATTEND Physician Assistant
DX: M35.3 Polymyalgia rheumatica (principal)

== ENCOUNTER → 2024-01-02 | Outpatient (CLI) | payer OTHER, MEDICAID ==
[~2024-01-02] MED LIST changes: +GABA-1172 PO; -GABA-282 PO
[2024-01-02 13:23] LABS: BASO # 0.1 10^3/uL (0.0-0.2); BASO % 0.4 % (0.0-1.0); EOS % 0.2 % (0.0-3.0); HEMATOCRIT 36.6 % (36.0-47.0); HEMOGLOBIN 11.7 g/dl (12.0-15.5); LYMPH # 1.3 10^3/uL (1.5-5.0); LYMPH % 10.3 % (24.0-44.0); MEAN CORPUSCULAR HEMOGLOBIN 33.1 pg (27.0-33.0); MEAN CORPUSCULAR VOLUME 103.7 fl (80.0-96.0); MONO # 0.4 10^3/uL (0.0-0.8); MONO % 3.4 % (2.0-8.0); NEUTROPHILS # 10.7 10^3/uL (1.5-8.5); NEUTROPHILS % 85.2 % (36.0-66.0); PLATELET COUNT, AUTOMATED 298 10^3/uL (150-450); RED BLOOD COUNT 3.53 10^6/uL (4.00-5.40); WHITE BLOOD COUNT 12.5 10^3/uL (4.0-10.0)
[2024-01-02 13:52] LABS: ERYTHROCYTE SEDIMENTATION RATE 22 mm/hr (0-30)
[2024-01-02 13:59] LABS: ALBUMIN 3.5 G/DL (3.2-5.2); ALKALINE PHOSPHATASE 74 U/L (46-116); ALT/SGPT 17 U/L (7.0-40); AST/SGOT < 8 U/L (<34); BILIRUBIN,TOTAL 0.4 MG/DL (0.3-1.2); BLOOD UREA NITROGEN 11 MG/DL (9-23); CALCIUM LEVEL 9.7 MG/DL (8.3-10.6); CARBON DIOXIDE LEVEL 29 MMOL/L (20-31); CHLORIDE LEVEL 108 MMOL/L (98-107); CREATININE FOR GFR 0.91 MG/DL (0.55-1.30); GLOMERULAR FILTRATION RATE > 60.0 (>39); GLUCOSE, FASTING 104 MG/DL (74-106); POTASSIUM SERUM 5.3 MMOL/L (3.5-5.1); SODIUM LEVEL 141 MMOL/L (136-145); TOTAL PROTEIN 6.4 G/DL (5.7-8.2)
== END ==
LOC: M PLALAB 11:09
PROVIDERS: ATTEND Physician Assistant
DX: M35.3 Polymyalgia rheumatica (principal)

== ENCOUNTER → 2024-01-09 | Outpatient (CLI) | payer OTHER, MEDICAID | LOC: M WHC 12:42 | PROVIDERS: ATTEND Internal Medicine | DX: Z12.31 Encounter for screening mammogram for malignant neoplasm of breast (principal); M85.851 Other specified disorders of bone density and structure, right thigh; M85.852 Other specified disorders of bone density and structure, left thigh ==

== ENCOUNTER → 2024-01-15 | Outpatient (CLI) | payer OTHER, MEDICAID | LOC: M PLAIMG 12:23 | PROVIDERS: ATTEND Internal Medicine | DX: R06.2 Wheezing (principal); K44.9 Diaphragmatic hernia without obstruction or gangrene ==

== ENCOUNTER → 2024-02-19 | Outpatient (REF) | payer OTHER, MEDICAID ==
[2024-02-19 15:02] LABS: PERCENT SATURATION 8.5 % (13.2-45.0)
[2024-02-19 15:04] LABS: FERRITIN 43.4 NG/ML (7.3-270.7)
== END ==
LOC: M LAB REF 13:30
PROVIDERS: ATTEND Internal Medicine
DX: R53.83 Other fatigue (principal)

== ENCOUNTER → 2024-04-06 | Outpatient (REF) | payer MEDICARE, MEDICAID ==
[2024-04-06 19:38] LABS: PERCENT SATURATION 35.3 % (13.2-45.0)
[2024-04-06 19:40] LABS: FERRITIN 55.8 NG/ML (7.3-270.7)
== END ==
LOC: M LAB REF 16:05
PROVIDERS: ATTEND Internal Medicine
DX: D64.9 Anemia, unspecified (principal)

== ENCOUNTER → 2024-04-07 | Outpatient (REF) | payer MEDICARE, MEDICAID | LOC: M LAB REF 10:22 | PROVIDERS: ATTEND Internal Medicine | DX: R19.7 Diarrhea, unspecified (principal) ==

== ENCOUNTER → 2024-04-17 | Outpatient (CLI) | payer MEDICARE, MEDICAID | LOC: M RAD 13:15 | PROVIDERS: ATTEND Internal Medicine | DX: R91.8 Other nonspecific abnormal finding of lung field (principal); R59.0 Localized enlarged lymph nodes; K44.9 Diaphragmatic hernia without obstruction or gangrene; S22.070A Wedge compression fracture of T9-T10 vertebra, initial encounter for closed fracture; S22.080A Wedge compression fracture of T11-T12 vertebra, initial encounter for closed fracture; Y93.9 Activity, unspecified; Y92.9 Unspecified place or not applicable ==

== ENCOUNTER → 2024-04-28 | Outpatient (REF) | payer MEDICARE, MEDICAID | LOC: M LAB REF 14:39 | PROVIDERS: ATTEND Internal Medicine | DX: K86.81 Exocrine pancreatic insufficiency (principal) ==

== ENCOUNTER → 2024-05-13 | Outpatient (REF) | payer MEDICARE, MEDICAID ==
[2024-05-13 15:53] LABS: APPEARANCE, URINE HAZY (CLEAR); BACTERIA, URINE AUTO 3+ (NEGATIVE); BILIRUBIN, URINE AUTO NEGATIVE (NEGATIVE); BLOOD, URINE BLOOD 2+ (NEGATIVE); COLOR, URINE YELLOW (YELLOW); GLUCOSE, URINE (UA) AUTO NEGATIVE (NEGATIVE); KETONE, URINE AUTO NEGATIVE (NEGATIVE); LEUKOCYTE ESTERASE, URINE AUTO 1+ (NEGATIVE); MUCUS, URINE SMALL (NEGATIVE); NITRITE, URINE AUTO NEGATIVE (NEGATIVE); PROTEIN, URINE AUTO NEGATIVE (NEGATIVE); RBC, URINE AUTO 2 /HPF (0-3); SPECIFIC GRAVITY URINE AUTO 1.012 (1.002-1.035); SQUAMOUS EPITHELIAL CELL UR AU 1 /HPF (0-6); UROBILINOGEN, URINE AUTO 0.2 mg/dL (0.0-2.0); WBC, URINE AUTO 8 /HPF (0-3)
== END ==
LOC: M SMT 12:53
PROVIDERS: ATTEND Specialist
DX: N39.46 Mixed incontinence (principal)

== ENCOUNTER → 2024-06-05 | Outpatient (CLI) | payer MEDICARE, MEDICAID ==
[~2024-06-05] MED LIST changes: +PROHANCE 279.3MG/ML 15ML VIAL As Ordered ONE; +PROHANCE 279.3MG/ML 5ML VIAL As Ordered ONE
== END ==
LOC: M RAD 14:11
PROVIDERS: ATTEND Internal Medicine
DX: R10.13 Epigastric pain (principal); K86.81 Exocrine pancreatic insufficiency
CPT/HCPCS: 74183; A9576

== ENCOUNTER → 2024-06-16 | Outpatient (REF) | payer MEDICARE, MEDICAID ==
[~2024-06-16] MED LIST changes: -PROHANCE 279.3MG/ML 15ML VIAL As Ordered ONE; -PROHANCE 279.3MG/ML 5ML VIAL As Ordered ONE
== END ==
LOC: M LAB REF 12:07
PROVIDERS: ATTEND Physician Assistant
DX: R30.0 Dysuria (principal)

== ENCOUNTER 2024-06-29 23:52 | Emergency (ER) | payer MEDICARE, MEDICAID ==
[~2024-06-29] VITALS: Ht 172.7 cm; Wt 124.4 kg
[2024-06-29 23:59] VITALS: BP 186/82; TEMP 97.5; O2SAT 98
== END 2024-06-30 01:53 | disposition left against medical advice (07) ==
LOC: M ED 23:52
DX: Z53.21 Procedure and treatment not carried out due to patient leaving prior to being seen by health care provider (principal)

== ENCOUNTER → 2024-07-09 | Outpatient (REF) | payer MEDICARE, MEDICAID | LOC: M LAB REF 12:05 | PROVIDERS: ATTEND Student in an Organized Health Care Education/Training Program | DX: R30.0 Dysuria (principal) ==

== ENCOUNTER → 2024-07-27 | Outpatient (CLI) | payer MEDICARE, MEDICAID ==
[~2024-07-27] MED LIST changes: +CREO3600; +METH2.5T48; +POLY510P14; +PRED25TA
== END ==
LOC: M PLARAD 11:48
PROVIDERS: ATTEND Internal Medicine
DX: R93.2 Abnormal findings on diagnostic imaging of liver and biliary tract (principal)
CPT/HCPCS: 78815; A9552

== ENCOUNTER → 2024-07-28 | Outpatient (REF) | payer MEDICARE, MEDICAID | LOC: M LAB REF 14:08 | PROVIDERS: ATTEND Physician Assistant | DX: R30.0 Dysuria (principal) ==

== ENCOUNTER → 2024-08-11 | Outpatient (REF) | payer MEDICARE, MEDICAID ==
[2024-08-11 17:53] LABS: URIC ACID 6.1 MG/DL (3.1-7.8)
[2024-08-11 17:58] LABS: RHEUMATOID FACTOR QUANT 9.7 IU/ML (<14)
[2024-08-14 11:12] LABS: ANA SCREEN, IFA NEGATIVE (NEGATIVE)
== END ==
LOC: M LAB REF 16:36
PROVIDERS: ATTEND Internal Medicine
DX: M35.3 Polymyalgia rheumatica (principal); R53.83 Other fatigue

== ENCOUNTER 2024-11-02 21:47 | Emergency (ER) | payer MEDICARE, MEDICAID ==
[~2024-11-02] VITALS: Ht 177.8 cm; Wt 112.0 kg
[~2024-11-02 21:47] MED LIST changes: -CREO3600; +CREO3600 PO; -METH2.5T48; +METH2.5T48 PO; -POLY510P14; +POLY510P14 PO; -PRED25TA; +PRED25TA PO
[2024-11-03] MEDS ORDERED: ISOVUE-370 76% 100 ML VIAL As Ordered ONE (00:12)
[2024-11-03 00:22] LABS: ALT/SGPT 16.0 U/L (7.0-40); AST/SGOT 18.0 U/L (<34)
[2024-11-03 00:23] LABS: KETONE, URINE AUTO RFX NEGATIVE (NEGATIVE); MUCUS, URINE RFX LARGE (NEGATIVE); NITRITE, URINE AUTO RFX NEGATIVE (NEGATIVE); RBC, URINE AUTO RFX 4 /HPF (0-3); SQUAM EPITHELIAL CELL UR AURFX 6 /HPF (0-6)
[2024-11-03 00:30] LABS: BASO # 0.0 10^3/uL (0.0-0.2); BASO % 0.4 % (0.0-1.0); EOS # 0.2 10^3/uL (0.0-0.5); EOS % 1.9 % (0.0-3.0); LEUKOCYTE ESTERASE UR AUTO RFX TRACE (NEGATIVE); LYMPH # 1.7 10^3/uL (1.5-5.0); LYMPH % 16.6 % (24.0-44.0); MONO # 0.3 10^3/uL (0.0-0.8); MONO % 3.2 % (2.0-8.0); NEUTROPHILS # 8.1 10^3/uL (1.5-8.5); NEUTROPHILS % 77.5 % (36.0-66.0); PLATELET COUNT, AUTOMATED 264 10^3/uL (150-450); WBC, URINE AUTO RFX 20 /HPF (0-3)
[2024-11-03] MEDS ORDERED: AMOX875T2 PO (00:59)
[2024-11-03] MEDS: AUGMENTIN 875 MG TAB PO ONE (01:11)
[2024-11-03 01:27] VITALS: BP 137/84; TEMP 97.4; O2SAT 99
== END 2024-11-03 01:35 | disposition home or self-care (01) ==
LOC: M ED 21:47
DX: K57.32 Diverticulitis of large intestine without perforation or abscess without bleeding (principal); K44.9 Diaphragmatic hernia without obstruction or gangrene; Z86.79 Personal history of other diseases of the circulatory system; Z79.2 Long term (current) use of antibiotics; Z79.83 Long term (current) use of bisphosphonates; Z79.899 Other long term (current) drug therapy
CPT/HCPCS: 36415; 74177; 80047; 80076; 81001; 83690; 85025; 87088; 87186; 99284; Q9967

== ENCOUNTER 2024-11-07 20:34 | Inpatient (IN) | payer MEDICARE, MEDICAID ==
[~2024-11-07] VITALS: Ht 177.8 cm; Wt 113.3 kg
[~2024-11-07 20:34] MED LIST changes: +AMOX875T2 PO
[2024-11-07 21:27] LABS: BASO # 0.0 10^3/uL (0.0-0.2); BASO % 0.3 % (0.0-1.0); EOS # 0.1 10^3/uL (0.0-0.5); EOS % 0.5 % (0.0-3.0); LYMPH # 1.4 10^3/uL (1.5-5.0); LYMPH % 10.6 % (24.0-44.0); MONO # 0.6 10^3/uL (0.0-0.8); MONO % 4.9 % (2.0-8.0); NEUTROPHILS # 10.9 10^3/uL (1.5-8.5); NEUTROPHILS % 83.3 % (36.0-66.0); PLATELET COUNT, AUTOMATED 243 10^3/uL (150-450)
[2024-11-07] MEDS: MORPHINE 4 MG/ML 1 ML VIAL IV ONE (21:49)
[2024-11-07] MEDS: ONDANSETRON 4MG 2ML VIAL IV ONE (21:49)
[2024-11-07] MEDS: NS (Normal Saline) 0.9% 1,000 ML IV ONE (21:50)
[2024-11-07 22:00] LABS: ALT/SGPT 15.0 U/L (7.0-40); AST/SGOT 16.0 U/L (<34); CALCIUM LEVEL 8.7 MG/DL (8.3-10.6); CARBON DIOXIDE LEVEL 27.0 MMOL/L (20-31); CHLORIDE LEVEL 107.0 MMOL/L (98-107); CREATININE FOR GFR 0.74 MG/DL (0.55-1.30); GLOMERULAR FILTRATION RATE 86.4 (>39); POTASSIUM SERUM 3.8 MMOL/L (3.5-5.1); SODIUM LEVEL 144.0 MMOL/L (136-145)
[2024-11-07 22:03] LABS: KETONE, URINE AUTO RFX NEGATIVE (NEGATIVE); LEUKOCYTE ESTERASE UR AUTO RFX NEGATIVE (NEGATIVE); MUCUS, URINE RFX MODERATE (NEGATIVE); NITRITE, URINE AUTO RFX NEGATIVE (NEGATIVE); RBC, URINE AUTO RFX 9 /HPF (0-3); SQUAM EPITHELIAL CELL UR AURFX 1 /HPF (0-6); WBC, URINE AUTO RFX 1 /HPF (0-3)
[2024-11-07] MEDS ORDERED: ISOVUE-370 76% 100 ML VIAL As Ordered ONE (22:22)
[2024-11-08] MEDS ORDERED: MAALOX 30 ML SUSP *UDC PO PRN
[2024-11-08] MEDS ORDERED: GLUCOSE 4 GM CHEW PO PRN
[2024-11-08] MEDS ORDERED: ACETAMINOPHEN 325 MG TAB PO PRN
[2024-11-08] MEDS ORDERED: GLUCAGON INJ 1 MG VIAL SC PRN
[2024-11-08] MEDS ORDERED: MOM 30 ML SUSPENSION UDC PO PRN
[2024-11-08] MEDS ORDERED: DEXTROSE 50% 50 ML SYRINGE IV PRN
[2024-11-08] MEDS: MORPHINE 2 MG/ML 1 ML VIAL IV ONE (00:50)
[2024-11-08] MEDS: NS (Normal Saline) 0.9% 1,000 ML IV SCH (00:51)
[2024-11-08] MEDS: PIPERACILLIN/TAZOBACTAM SOD 3.375 GM in DEXTROSE 5% (D5W) ADV/MINI-BAG 50 ML IV SCH (00:51)
[2024-11-08 01:15] VITALS: BP 140/81; TEMP 97.9; O2SAT 94
[2024-11-08 03:31] VITALS: BP 139/77; TEMP 97.3; O2SAT 96
[2024-11-08] MEDS ORDERED: KETOROLAC 30 MG/ML 1 ML VIAL IV PRN (04:10)
[2024-11-08] MEDS ORDERED: MORPHINE 2 MG/ML 1 ML VIAL IV PRN (04:30)
[2024-11-08] MEDS ORDERED: METH-855 PO (04:50)
[2024-11-08] MEDS ORDERED: OXYB-54 PO (04:50)
[2024-11-08] MEDS ORDERED: PRED10TA2 PO (04:50)
[2024-11-08] MEDS ORDERED: FOLI1TAB11 PO (04:50)
[2024-11-08] MEDS ORDERED: FERR325T19 PO (04:50)
[2024-11-08] MEDS ORDERED: HOME MED LIST COMPLETE! XX SCH (04:55)
[2024-11-08] MEDS: MORPHINE 4 MG/ML 1 ML VIAL IV PRN (05:16)
[2024-11-08] MEDS: ONDANSETRON 4MG 2ML VIAL IV PRN (05:37)
[2024-11-08 06:16] LABS: PLATELET COUNT, AUTOMATED 231 10^3/uL (150-450)
[2024-11-08 06:44] LABS: CALCIUM LEVEL 8.0 MG/DL (8.3-10.6); CARBON DIOXIDE LEVEL 27 MMOL/L (20-31); CHLORIDE LEVEL 107 MMOL/L (98-107); CREATININE FOR GFR 0.71 MG/DL (0.55-1.30); GLOMERULAR FILTRATION RATE > 90.0 (>39); MAGNESIUM LEVEL 1.9 MG/DL (1.8-2.4); POTASSIUM SERUM 3.9 MMOL/L (3.5-5.1); SODIUM LEVEL 143 MMOL/L (136-145)
[2024-11-08] MEDS: INSULIN LISPRO (NovoLOG) PER UNIT SC SCH (07:30)
[2024-11-08] MEDS: oxyBUTYnin *XL* 5 MG TAB PO SCH (08:35)
[2024-11-08] MEDS: predniSONE 10 MG TAB PO SCH (08:36)
[2024-11-08] MEDS: METHENAMINE HIPPURATE 1 GM TABLET PO SCH (08:36)
[2024-11-08] MEDS: PANTOPRAZOLE 40MG VIAL IV SCH (08:37)
[2024-11-08] MEDS: FLUTICASONE PROPIONATE 0.05% NASAL SPRAY 16 GM SCH (08:38)
[2024-11-08] MEDS: METOPROLOL SUCC. 25 MG *XL* TAB PO SCH (08:38)
[2024-11-08] MEDS: DOCUSATE SODIUM 100 MG CAPSULE PO SCH (09:00)
[2024-11-08] MEDS: MIRALAX *UNIT DOSE* 17 GM PACKET PO SCH (09:00)
[2024-11-08] MEDS: HYDROMORPHONE HCL 0.5 MG/0.5 ML SYRINGE IV ONE (09:13)
[2024-11-08] MEDS ORDERED: NALOXONE INJ 0.4 MG/1 ML VIAL IV PRN (11:05)
[2024-11-08] MEDS: ACETAMINOPHEN 500 MG TAB PO SCH (11:47)
[2024-11-08] MEDS: KETOROLAC 30 MG/ML 1 ML VIAL IV ONE (11:47)
[2024-11-08 12:00] VITALS: BP 110/54; TEMP 97.5; O2SAT 97
[2024-11-08] MEDS: RIVAROXABAN 20MG TAB PO SCH (17:30)
[2024-11-08 19:42] VITALS: BP 125/68; TEMP 97.7; O2SAT 93
[2024-11-08] MEDS: GABAPENTIN 300 MG CAP PO PRN (19:51)
[2024-11-08 19:56] VITALS: O2SAT 94
[2024-11-08 20:00] VITALS: BP 144/77; TEMP 97.7; O2SAT 94
[2024-11-09 04:36] VITALS: BP 98/56; TEMP 97.7; O2SAT 91
[2024-11-09 12:00] VITALS: BP 138/65; TEMP 97.2; O2SAT 95
[2024-11-09 19:31] VITALS: BP 142/77; TEMP 97.2; O2SAT 94
[2024-11-10 04:25] VITALS: BP 139/75; TEMP 97.3; O2SAT 93
[2024-11-10 12:00] VITALS: BP 138/70; TEMP 97.3; O2SAT 94
[2024-11-10 20:11] VITALS: BP 125/67; TEMP 97.3; O2SAT 97
[2024-11-11 04:18] VITALS: BP 116/53; TEMP 97.2; O2SAT 96
[2024-11-11 09:00] VITALS: BP 144/70
[2024-11-11 11:41] VITALS: BP 144/71; TEMP 97.3; O2SAT 94
[2024-11-11] MEDS ORDERED: CIPR-249 PO (13:35)
[2024-11-11] MEDS ORDERED: METR375C3 PO (13:36)
[2024-11-11] MEDS ORDERED: META0.52 PO (13:37)
[2024-11-11] MEDS ORDERED: METR-265 PO (13:53)
== END 2024-11-11 15:06 | disposition home or self-care (01) | DRG 392 ==
LOC: M ED 20:34 → M ED INP 23:58 → M MSPAV 11-08 01:14
PROVIDERS: ADMIT Student in an Organized Health Care Education/Training Program; ATTEND Student in an Organized Health Care Education/Training Program
DX: K57.32 Diverticulitis of large intestine without perforation or abscess without bleeding (principal); K43.0 Incisional hernia with obstruction, without gangrene; E66.01 Morbid (severe) obesity due to excess calories; G47.33 Obstructive sleep apnea (adult) (pediatric); I10 Essential (primary) hypertension; K57.90 Diverticulosis of intestine, part unspecified, without perforation or abscess without bleeding; Z68.34 Body mass index [BMI] 34.0-34.9, adult; I48.91 Unspecified atrial fibrillation; Z93.2 Ileostomy status; Z79.01 Long term (current) use of anticoagulants; Z85.828 Personal history of other malignant neoplasm of skin; Z79.899 Other long term (current) drug therapy; Z79.52 Long term (current) use of systemic steroids

== ENCOUNTER → 2024-12-22 | Outpatient (CLI) | payer MEDICARE ==
[~2024-12-22] MED LIST changes: +FERR325T19 PO; +FOLI1TAB11 PO; +META0.52 PO; +METH-1100 PO; +METR-265 PO; +METR375C3 PO; +OXYB-54 PO; +PRED10TA2 PO
== END ==
LOC: M PLAIMG 13:40
PROVIDERS: ATTEND Internal Medicine Medical Oncology
DX: K86.2 Cyst of pancreas (principal)

== ENCOUNTER → 2024-12-23 | Outpatient (REF) | payer MEDICARE | LOC: M LAB REF 14:08 | PROVIDERS: ATTEND Nurse Practitioner Family | DX: R30.0 Dysuria (principal) ==

== ENCOUNTER 2024-12-27 19:58 | Emergency (ER) | payer MEDICARE ==
[~2024-12-27] VITALS: Ht 179.1 cm; Wt 111.1 kg
[2024-12-27 20:44] LABS: BASO # 0.0 10^3/uL (0.0-0.2); BASO % 0.2 % (0.0-1.0); EOS # 0.2 10^3/uL (0.0-0.5); EOS % 2.7 % (0.0-3.0); LYMPH # 0.9 10^3/uL (1.5-5.0); LYMPH % 10.8 % (24.0-44.0); MONO # 0.2 10^3/uL (0.0-0.8); MONO % 2.2 % (2.0-8.0); NEUTROPHILS # 7.1 10^3/uL (1.5-8.5); NEUTROPHILS % 83.7 % (36.0-66.0); PLATELET COUNT, AUTOMATED 214 10^3/uL (150-450)
[2024-12-27 20:51] LABS: ERYTHROCYTE SEDIMENTATION RATE 35 mm/hr (0-30)
[2024-12-27 21:16] LABS: C REACTIVE PROTEIN QUANTITATIV 5.43 MG/DL (<1.0); CALCIUM LEVEL 8.2 MG/DL (8.3-10.6); CARBON DIOXIDE LEVEL 26 MMOL/L (20-31); CHLORIDE LEVEL 104 MMOL/L (98-107); CREATININE FOR GFR 0.67 MG/DL (0.55-1.30); GLOMERULAR FILTRATION RATE > 90.0 (>39); POTASSIUM SERUM 3.7 MMOL/L (3.5-5.1); SODIUM LEVEL 139 MMOL/L (136-145)
[2024-12-28] MEDS: DALBAVANCIN 1,500 MG in D5W 250 ML IV ONE (03:00)
[2024-12-28] MEDS: KETOROLAC 30 MG/ML 1 ML VIAL IV ONE (03:36)
[2024-12-28 03:42] VITALS: BP 157/70; TEMP 96.8; O2SAT 97
== END 2024-12-28 03:59 | disposition home or self-care (01) ==
LOC: M ED 19:58
DX: L03.116 Cellulitis of left lower limb (principal); I10 Essential (primary) hypertension; G47.30 Sleep apnea, unspecified; R51.9 Headache, unspecified; K21.9 Gastro-esophageal reflux disease without esophagitis; Z86.73 Personal history of transient ischemic attack (TIA), and cerebral infarction without residual deficits; Z86.79 Personal history of other diseases of the circulatory system; Z79.83 Long term (current) use of bisphosphonates; Z79.52 Long term (current) use of systemic steroids; Z79.899 Other long term (current) drug therapy
CPT/HCPCS: 80048; 85025; 85652; 86140; 87040; 93971; 96374; 96375; 99284; J0875; J1885

== ENCOUNTER → 2025-01-14 | Outpatient (REF) | payer MEDICARE ==
[~2025-01-14] MED LIST changes: +IBUP200C25 PO
[2025-01-14 17:44] LABS: APPEARANCE, URINE CLOUDY (CLEAR); BACTERIA, URINE AUTO NEGATIVE (NEGATIVE); BILIRUBIN, URINE AUTO NEGATIVE (NEGATIVE); BLOOD, URINE BLOOD 1+ (NEGATIVE); GLUCOSE, URINE (UA) AUTO NEGATIVE (NEGATIVE); KETONE, URINE AUTO NEGATIVE (NEGATIVE); LEUKOCYTE ESTERASE, URINE AUTO 2+ (NEGATIVE); MUCUS, URINE SMALL (NEGATIVE); NITRITE, URINE AUTO NEGATIVE (NEGATIVE); PROTEIN, URINE AUTO NEGATIVE (NEGATIVE); RBC, URINE AUTO 2 /HPF (0-3); SPECIFIC GRAVITY URINE AUTO 1.020 (1.002-1.035); SQUAMOUS EPITHELIAL CELL UR AU 5 /HPF (0-6); UROBILINOGEN, URINE AUTO 0.2 mg/dL (0.0-2.0); WBC, URINE AUTO 20 /HPF (0-3)
== END ==
LOC: M SMT 16:38
PROVIDERS: ATTEND Urology
DX: N39.0 Urinary tract infection, site not specified (principal)

== ENCOUNTER → 2025-01-21 | Outpatient (REF) | payer MEDICARE ==
[2025-01-21 15:42] LABS: LDH LACTATE DEHYDROGENASE 258 U/L (120-246)
[2025-01-21 15:43] LABS: ALT/SGPT 10 U/L (7.0-40); AST/SGOT 16 U/L (<34); BASO # 0.1 10^3/uL (0.0-0.2); BASO % 1.1 % (0.0-1.0); C REACTIVE PROTEIN QUANTITATIV 1.57 MG/DL (<1.0); CALCIUM LEVEL 8.9 MG/DL (8.3-10.6); CARBON DIOXIDE LEVEL 26 MMOL/L (20-31); CHLORIDE LEVEL 104 MMOL/L (98-107); CPK CREATINE PHOSPHOKINASE 24 U/L (34-145); CREATININE FOR GFR 0.63 MG/DL (0.55-1.30); EOS # 0.5 10^3/uL (0.0-0.5); EOS % 4.1 % (0.0-3.0); GLOMERULAR FILTRATION RATE > 90.0 (>39); LYMPH # 2.0 10^3/uL (1.5-5.0); LYMPH % 17.3 % (24.0-44.0); MONO # 0.7 10^3/uL (0.0-0.8); MONO % 6.4 % (2.0-8.0); NEUTROPHILS # 8.0 10^3/uL (1.5-8.5); NEUTROPHILS % 70.7 % (36.0-66.0); PLATELET COUNT, AUTOMATED 328 10^3/uL (150-450); POTASSIUM SERUM 3.6 MMOL/L (3.5-5.1); SODIUM LEVEL 143 MMOL/L (136-145)
== END ==
LOC: M SFHCRHEU 11:31
PROVIDERS: ATTEND Internal Medicine Rheumatology
DX: R76.89 Other specified abnormal immunological findings in serum (principal); R79.82 Elevated C-reactive protein (CRP)

== ENCOUNTER → 2025-01-21 | Outpatient (CLI) | payer MEDICARE | LOC: M PLAIMG 12:58 | PROVIDERS: ATTEND Internal Medicine Rheumatology | DX: R52 Pain, unspecified (principal) ==

== ENCOUNTER → 2025-03-22 | Outpatient (REF) | payer MEDICARE, MEDICAID ==
[~2025-03-22] MED LIST changes: +ELIQ5TAB; +PRED20TA PO
[2025-03-22 15:02] LABS: APPEARANCE, URINE MANUAL TURBID (CLEAR); COLOR, URINE MANUAL GREEN (YELLOW)
[2025-03-22 15:03] LABS: BILIRUBIN, URINE MANUAL NEGATIVE (NEGATIVE); BLOOD URINE MANUAL N (NEGATIVE); GLUCOSE, URINE (UA) MANUAL NEGATIVE (NEGATIVE); KETONE, URINE MANUAL NEGATIVE (NEGATIVE); LEUKOCYTE ESTERASE, URINE MAN TRACE (NEGATIVE); NITRITE, URINE MANUAL TRACE (NEGATIVE); PH,URINE MAN 5.0 UNITS (5.0 - 7.0); PROTEIN, URINE MANUAL TRACE mg/dL (NEGATIVE); SPECIFIC GRAVITY,URINE MANUAL 1.025 (1.002-1.035); UROBILINOGEN, URINE MANUAL NORMAL (NORMAL)
[2025-03-22 15:08] LABS: AMORPHOUS SEDIMENT, URINE LARGE AMOUNT (NEGATIVE); BACTERIA, URINE MOD AMOUNT; RBC, URINE NONE SEEN /hpf (0-3); SQUAMOUS EPITHELIAL CELL URINE SMALL AMOUNT /hpf (SMALL AMT)
[2025-03-22 15:09] LABS: HYALINE CAST, URINE NONE SEEN /lpf (0-1)
== END ==
LOC: M LAB REF 14:07
DX: R30.0 Dysuria (principal)